=== PATIENT | female | born 1960 | race Caucasian/White ===

== ENCOUNTER 2021-03-10 21:01 | Inpatient (IN) | payer OTHER ==
--- OUTSIDE RECORDS SUMMARY | 2021-03-10 21:05 | XMS REPORT | Continuity of Care Document ---
:1960 Author Organization [facility] t Address [address] [place] [address] Care Team Providers Name Role Phone Maame Franklin Attending Clinician Doctor Unassigned, [place] Attending Clinician Unavailable Pancho ROJAS Attending Clinician Clinic, Pcp Assessment Attending Clinician Unavailable Problems Condition Condition Condition Status Onset Resolution Last Treating Co mments Source Name Details Category Date Date Treatment Clinician Date Seasonal Seasonal Problem [facility] Polyarthra Polyarthra Diagnosis Active [facility] lgia [facility]gia [facility] Acquired Acquired Diagnosis Active [facility] hypothyroi hypothyroi [facility] - dism dism [facility] Hyperlipid Hyperlipid Problem Active [facility] emia, emia, [facility] - unspecifie unspecifie Me moria d d l hyperlipid hyperlipid Ou tpati emia type emia type ent Clinics Obesity Obesity Problem Active [facility] (BMI (BMI [facility] - 30-39.9) 30-39.9) [facility] Essential Essential Diagnosis Active [facility] hypertensi hypertensi Caryl kes - on on [facility] Insomnia, Insomnia, Problem Active [facility] unspecifie unspecifie Caryl kes - d type d type [facility] Migraine Migraine Problem Active [facility] without without [facility] - status status [facility] migrainosu migrainosu l s, not s, not Outpati intractabl intractabl en t e, e, Clinics unspecifie unspecifie d migraine d migraine type type GERD GERD Problem Active [facility] (gastroeso (gastroeso Caryl kes - phageal phageal Memoria reflux reflux l disease) disease) Outpat i ent Clinics Depression Depression Diagnosis Active [facility] , , [facility] - unspecifie unspecifie Me moria d d l depression depression Ou tpati type type ent Clinics Thyroid Thyroid Problem Active [facility] disease disease [facility] Allergies, Adverse Reactions, Alerts Allergy Allergy Status Severity Reaction(s) Onset Inactive Treating Comm ents Source Name Type Date Date Clinician Vicodin Adverse Active vomiting [facility] Reaction [facility] Medications Ordered Filled Start Stop Current Ordering Indication Dosage Frequency Signature Comments Components Source Medication Medication Date Date Medication? Clinician (SIG) Name Name Levothyroxi Levothyroxi Yes Crissy [address] [facility] ne Sodium ne Sodium Millender in the Lu - morning on Memoria an empty l stomach Outpati ent Clinics Cymbalta Cymbalta Yes Crissy [address] Millender [facility] Lisinopril- Lisinopril- Yes Crissy [address] [facility] Hydrochloro Hydrochloro Millender [facility] - thiazide thiazide [facility] Maxalt Maxalt Yes Crissy as [facility] Millender directed [facility] Trazodone Trazodone Yes Crissy [address] [facility] HCl HCl Millender at bedtime Luke s - as needed [facility] for sleep l [facility] Procedures This patient has no known procedures. Encounters Start End Encounter Admission Attending Care Care Encounter Source Date/Time Date/Time Type Type Clinicians Facility Department ID 2020-03-06 2020-03-06 Outpatient Keena Brinkt [id number] [facility] 10:20:00 10:20:00 [facility] 2020-02-26 2020-02-26 Patient Stubbers, [facility] [id number] 00:00:00 00:00:00 Secure Msg Maame PRIMARY [id number] CARE [id number] PAVILLION [id number] 2020-02-26 2020-02-26 Refill Doctor [facility] [id number] 00:00:00 00:00:00 Unassigned, PRIMARY [id number] [place] CARE [id number] PAVILLION [id number] 2020-01-24 2020-01-24 Refill Doctor [facility] [id number] 00:00:00 00:00:00 Unassigned, PRIMARY [id number] [place] CARE [id number] PAVILLION [id number] 2019-12-05 2019-12-05 Telephone Deleon, [facility] [id number] 00:00:00 00:00:00 Caden PRIMARY [id number] CARE [id number] PAVILLION [id number] 2019-12-01 2019-12-01 Urgent Clinic, [facility] [id number] 12:52:36 13:07:36 Care Pcp PRIMARY [id number] Assessment CARE [id number] PAVILLION [id number] Results This patient has no known results.
[2021-03-10 22:12] LABS: Absolute Lymphocytes (CBC) 5.1 K/uL (0.7-4.9); Basophils % 0.4 % (0-1.3); Hematocrit 36.4 % (36.0-45.0); Lymphocytes % 46.8 % (15.3-44.8); MPV 7.6 fL (7.6-11.3); RBC Red Blood Cell Count 4.26 M/uL (3.86-4.86)
[2021-03-10 22:13] LABS: Protime INR 1.04
[2021-03-10 22:22] LABS: ALT/SGPT 22 U/L (12-78); AST/SGOT 12 U/L (15-37); Albumin 3.7 g/dL (3.4-5.0); Alkaline Phosphatase 101 U/L (45-117); BUN Blood Urea Nitrogen 18 mg/dL (7-18); Bicarbonate 28 mmol/L (21-32); Bilirubin Direct < 0.1 mg/dL (0-0.2); Bilirubin Total 0.2 mg/dL (0.2-1.0); Glucose Level 88 mg/dL (74-106); Magnesium 2.1 mg/dL (1.8-2.4); NT PRO-BNP 79 pg/mL (<125); Potassium 3.8 mmol/L (3.5-5.1); Protein, Total 7.5 g/dL (6.4-8.2); Sodium Level 139 mmol/L (136-145); Troponin (Emerg Dept Use Only) < 0.02 ng/mL (0.0-0.045)
--- NOTE | 2021-03-11 00:01 | ER ---
Nurse's Notes [facility] Name: Maddie Garcia Age: 60 yrs Sex: Female : 1960 Arrival Date: 03/10/2021 Time: 21:07 Bed 18 Private MD: Diagnosis: Chest pain Presentation: 03/10 21:10 Chief complaint: Patient states: I starting having chest tighness, SOB, left arm pain jb4 and numbness with left back pain earlier today. I tried to wait it out but it would not go away so I came here. I was worried I could be having a heart attack. 21:10 Coronavirus screen: Client denies travel out of the [place] in the last 14 days. At this jb4 time, the client does not indicate any symptoms associated with coronavirus-19. Ebola Screen: No symptoms or risks identified at this time. Initial Sepsis Screen: Does the patient meet any 2 criteria? No. Patient's initial sepsis screen is negative. Does the patient have a suspected source of infection? No. Patient's initial sepsis screen is negative. Risk Assessment: Do you want to hurt yourself or someone else? Patient reports no desire to harm self or others. Onset of symptoms was March 10, 2021. Transition of care: patient was not received from another setting of care. 21:10 Method Of Arrival: Ambulatory jb4 21:10 Acuity: POLO 3 jb4 Historical: - Allergies: 21:53 No Known Allergies; jb4 - Home Meds: 21:53 Synthroid Oral [Active]; Hydrochlorothiazide Oral [Active]; Lisinopril Oral [Active]; jb4 Cymbalta oral oral [Active]; topiramate (bulk) miscellaneous [Active]; - PMHx: 21:53 Hypertension; Hypothyroidism; Rheumatoid Arthritis; jb4 - PSHx: 21:53 wrist; Tonsillectomy; Lumpectomy; jb4 - Immunization history:: Adult Immunizations up to date. - Social history:: Smoking status: Patient/guardian denies using tobacco. Screenin:50 Abuse screen: Denies threats or abuse. Nutritional screening: No deficits noted. jb4 Tuberculosis screening: No symptoms or risk factors identified. Fall Risk None identified. Assessment: 21:10 General: Appears in no apparent distress. uncomfortable, Behavior is calm, cooperative, jb4 appropriate for age. Pain: Complains of pain in chest Pain radiates to left scapular area and left arm Pain currently is 5 out of 10 on a pain scale. Quality of pain is described as pressure, Pain began gradually. Neuro: Level of Consciousness is awake, alert, obeys commands, Oriented to person, place, time, situation. Cardiovascular: Reports chest pain, shortness of breath, Patient's skin is warm and dry. Respiratory: Airway is patent Respiratory effort is even, unlabored, Respiratory pattern is regular, symmetrical. GI: No signs and/or symptoms were reported involving the gastrointestinal system. : No signs and/or symptoms were reported regarding the genitourinary system. EENT: No signs and/or symptoms were reported regarding the EENT system. Derm: Skin is intact, Skin is pink, warm \T\ dry. Musculoskeletal: Circulation, motion, and sensation intact. Range of motion: intact in all extremities. 22:00 Reassessment: Patient appears in no apparent distress at this time. Patient and/or jb4 family updated on plan of care and expected duration. Pain level reassessed. Patient is alert, oriented x 3, equal unlabored respirations, skin warm/dry/pink. 23:00 Reassessment: Patient appears in no apparent distress at this time. Patient and/or jb4 family updated on plan of care and expected duration. Pain level reassessed. Patient is alert, oriented x 3, equal unlabored respirations, skin warm/dry/pink. 23:30 Reassessment: Pt reports worsening chest pain and requesting pain medication, provider jb4 notified, no new orders received. 03/11 00:29 Reassessment: Patient appears in no apparent distress at this time. Patient and/or jb4 family updated on plan of care and expected duration. Pain level reassessed. Patient is alert, oriented x 3, equal unlabored respirations, skin warm/dry/pink. Vital Signs: 03/10 21:10 BP 112 / 69; Pulse 75; Resp 16; Temp 98.2(TE); Pulse Ox 100% on R/A; Weight 88.45 kg; jb4 Height 5 ft. 10 in. (177.80 cm) (R); Pain 5/10; 22:00 BP 91 / 69; Pulse 70; Resp 16; Pulse Ox 100% on R/A; jb4 23:00 BP 118 / 73; Pulse 67; Resp 18; Pulse Ox 96% on R/A; jb4 03/11 00:30 BP 113 / 84; Pulse 82; Resp 16; Pulse Ox 97% on R/A; jb4 03/10 21:10 Body Mass Index 27.98 (88.45 kg, 177.80 cm) jb4 ED Course: 03/10 21:07 Patient arrived in ED. cf2 21:10 Patient has correct armband on for positive identification. Placed in gown. Bed in low jb4 position. Call light in reach. Side rails up X 1. Pulse ox on. NIBP on. 21:10 Patient maintains SpO2 saturation greater than 95% on room air. jb4 21:41 El Wooten, RN is Primary Nurse. jb4 21:50 Triage completed. jb4 21:50 Initial lab(s) drawn, by mt, sent to lab. Inserted saline lock: 18 gauge in right jb4 antecubital area, using aseptic technique. Blood collected. 21:53 Arm band placed on right wrist. jb4 22:09 Amanuel Kohli MD is Attending Physician. pkl 22:50 XRAY Chest (1 view) In Process Unspecified. EDIN 03/11 00:01 Lio Bernstein is Hospitalizing Provider. pkl 00:29 No provider procedures requiring assistance completed. Patient admitted, IV remains in jb4 place. Administered Medications: 00:12 Drug: Zofran (Ondansetron) 4 mg Route: IVP; Site: right antecubital; jb4 00:14 Drug: morphine 4 mg Route: IVP; Site: right antecubital; jb4 Outcome: 00:01 Decision to Hospitalize by Provider. pkl 00:29 Admitted to Med/surg accompanied by nurse, via stretcher, room 206, with chart, Report jb4 called to MANNY Zabala 00:31 Condition: stable jb4 00:31 Discharge instructions given to patient, Instructed on the need for admit, Demonstrated understanding of instructions. 00:42 Patient left the ED. jb4 Signatures: Dispatcher [facility] Amanuel Kohli MD MD pkl El Wooten RN RN jb4 Mirtha Deleon cf2
--- NOTE | 2021-03-11 00:02 | EDPHYS ---
Physician Documentation [facility] Name: Maddie Garcia Age: 60 yrs Sex: Female : 1960 Arrival Date: 03/10/2021 Time: 21:07 Bed 18 Private MD: ED Physician Amanuel Kohli HPI: 03/10 22:19 This 60 yrs old Female presents to ER via Ambulatory with complaints of Chest pkl Pain, Nausea, Shortness Of Breath, TOP LEFT BACK PAIN, Arm Pain. 22:19 The patient or guardian reports chest pain that is located primarily in the substernal pkl area. Onset: today, and became persistent. The pain radiates to the left arm, left neck, left jaw, left back. Associated signs and symptoms: Pertinent positives: shortness of breath. The chest pain is described as tightness. Historical: - Allergies: 21:53 No Known Allergies; jb4 - Home Meds: 21:53 Synthroid Oral [Active]; Hydrochlorothiazide Oral [Active]; Lisinopril Oral [Active]; jb4 Cymbalta oral oral [Active]; topiramate (bulk) miscellaneous [Active]; - PMHx: 21:53 Hypertension; Hypothyroidism; Rheumatoid Arthritis; jb4 - PSHx: 21:53 wrist; Tonsillectomy; Lumpectomy; jb4 - Immunization history:: Adult Immunizations up to date. - Social history:: Smoking status: Patient/guardian denies using tobacco. ROS: 22:19 Eyes: Negative for injury, pain, redness, and discharge, ENT: Negative for injury, pkl pain, and discharge, Neck: Negative for injury, pain, and swelling. 22:19 Cardiovascular: Positive for chest pain, of the substernal. 22:19 Respiratory: Positive for cough, with no reported sputum, shortness of breath, at rest. 22:19 Abdomen/GI: Negative for abdominal pain, nausea, vomiting, and diarrhea. 22:19 Back: Negative for acute changes. 22:19 : Negative for urinary symptoms. 22:19 MS/extremity: Negative for acute changes. 22:19 Skin: Negative for rash. 22:19 Neuro: Negative for altered mental status, loss of consciousness. Exam: 22:19 Head/Face: Normocephalic, atraumatic. Eyes: Pupils equal round and reactive to light, pkl extra-ocular motions intact. Lids and lashes normal. Conjunctiva and sclera are non-icteric and not injected. Cornea within normal limits. Periorbital areas with no swelling, redness, or edema. ENT: Nares patent. No nasal discharge, no septal abnormalities noted. Tympanic membranes are normal and external auditory canals are clear. Oropharynx with no redness, swelling, or masses, exudates, or evidence of obstruction, uvula midline. Mucous membranes moist. Neck: Trachea midline, no thyromegaly or masses palpated, and no cervical lymphadenopathy. Supple, full range of motion without nuchal rigidity, or vertebral point tenderness. No Meningismus. Chest/axilla: Normal chest wall appearance and motion. Nontender with no deformity. No lesions are appreciated. Cardiovascular: Regular rate and rhythm with a normal S1 and S2. No gallops, murmurs, or rubs. Normal PMI, no JVD. No pulse deficits. 22:19 Abdomen/GI: Bowel sounds: normal, Palpation: abdomen is soft and non-tender, in all quadrants. 22:19 Back: Exam negative for acute changes. 22:19 : Exam negative for acute changes. 22:19 Musculoskeletal/extremity: Exam is negative for acute changes. 22:19 Skin: Exam negative for rash. 22:19 Neuro: Orientation: is normal, Mentation: is normal, Cranial nerves: grossly normal, Motor: is normal. 22:34 Respiratory: the patient does not display signs of respiratory distress, Respirations: pkl normal, Breath sounds: are clear throughout. Vital Signs: 21:10 BP 112 / 69; Pulse 75; Resp 16; Temp 98.2(TE); Pulse Ox 100% on R/A; Weight 88.45 kg; jb4 Height 5 ft. 10 in. (177.80 cm) (R); Pain 5/10; 22:00 BP 91 / 69; Pulse 70; Resp 16; Pulse Ox 100% on R/A; jb4 23:00 BP 118 / 73; Pulse 67; Resp 18; Pulse Ox 96% on R/A; jb4 03/11 00:30 BP 113 / 84; Pulse 82; Resp 16; Pulse Ox 97% on R/A; jb4 03/10 21:10 Body Mass Index 27.98 (88.45 kg, 177.80 cm) [facility] MDM: 03/10 22:09 Patient medically screened. pkl 23:59 Data reviewed: vital signs, nurses notes, lab test result(s), EKG, radiologic studies, pkl plain films. ED course: Talked to Kapil MCCLURE ) For observation Dr. Bernstein. 03/10 21:47 Order name: Basic Metabolic Panel; Complete Time: 22:33 [facility] 03/10 21:47 Order name: CBC with Diff; Complete Time: 22:17 [facility] 03/10 21:47 Order name: LFT's; Complete Time: 22:33 [facility] 03/10 21:47 Order name: Magnesium; Complete Time: 22:33 [facility] 03/10 21:47 Order name: NT PRO-BNP; Complete Time: 22:33 [facility] 03/10 21:47 Order name: PT-INR; Complete Time: 23:36 [facility] 03/10 21:47 Order name: Troponin (emerg Dept Use Only); Complete Time: 22:33 [facility] 03/10 21:47 Order name: XRAY Chest (1 view) [facility] 03/10 21:47 Order name: EKG; Complete Time: 21:48 [facility] 03/10 22:18 Order name: D-Dimer l 03/10 22:21 Order name: D-Dimer; Complete Time: 23:36 [facility] 03/10 21:47 Order name: Cardiac monitoring; Complete Time: 21:47 [facility] 03/10 21:47 Order name: EKG - Nurse/Tech; Complete Time: 21:47 [facility] 03/10 21:47 Order name: IV Saline Lock; Complete Time: 21:47 [facility] 03/10 21:47 Order name: Labs collected and sent; Complete Time: 21:47 [facility] 03/10 21:47 Order name: O2 Per Protocol; Complete Time: 21:47 [facility] 03/10 21:47 Order name: O2 Sat Monitoring; Complete Time: 21:47 [facility] 03/10 23:58 Order name: CONS Physician Consult EDMS Administered Medications: 03/11 00:12 Drug: Zofran (Ondansetron) 4 mg Route: IVP; Site: right antecubital; jb4 00:14 Drug: morphine 4 mg Route: IVP; Site: right antecubital; jb4 Disposition: 03/11/21 00:01 Hospitalization ordered by Lio Bernstein for Observation. Diagnosis is Chest pain. - Bed requested for Telemetry/MedSurg (observation). - Status is Observation. jb4 - Condition is Stable. - Problem is new. - Symptoms are unchanged. Signatures: Dispatcher [employer] EDRI Amanuel Kohli MD MD pkl Manjinder Mendez RN RN El Wooten RN RN jb4 Corrections: (The following items were deleted from the chart) 03/10 22:21 22:19 D-Dimer ordered. [facility] EDMS 22:34 22:19 Respiratory: mild respiratory distress is noted, Respirations: labored breathing, pkl that is mild, Breath sounds: rales, that are mild, are scattered, pkl 03/11 00:17 00:01 Hospitalization Ordered by Lio Bernstein for Observation. Preliminary diagnosis em is Chest pain. Bed requested for Telemetry/MedSurg (observation). Status is Observation. Condition is Stable. Problem is new. Symptoms are unchanged. pkl 00:42 00:17 03/11/2021 00:01 Hospitalization Ordered by Lio Bernstein for Observation. jb4 Preliminary diagnosis is Chest pain. Bed requested for Telemetry/MedSurg (observation). Status is Observation. Condition is Stable. Problem is new. Symptoms are unchanged. em
[2021-03-11] MEDS ORDERED: ONDANSETRON 4 MG/2 ML VIAL ONE (00:29)
[2021-03-11] MEDS ORDERED: MORPHINE 4 MG/ML SYR ONE (00:29)
[2021-03-11] MEDS ORDERED: NITROGLYCERIN 0.4 MG/TAB SL PRN (00:53)
[2021-03-11] MEDS ORDERED: ONDANSETRON 4 MG/2 ML VIAL IV PRN (00:53)
[2021-03-11] MEDS ORDERED: MORPHINE 2 MG/ML SYR IV PRN (00:53)
[2021-03-11] MEDS ORDERED: TRAZODONE 50 MG TABLET PO PRN (00:53)
[2021-03-11] MEDS ORDERED: ACETAMINOPHEN 500 MG TAB PO PRN (00:53)
[2021-03-11 01:30] VITALS: BMI 28.3
[2021-03-11] MEDS: TOPIRAMATE 25 MG TAB PO SCH ×3 (02:18→20:03)
--- NOTE | 2021-03-11 04:11 | P.HP ---
Certification for Inpatient Patient admitted to: Observation With expected LOS: <2 Midnights Patient will require the following post-hospital care: None Practitioner: I am a practitioner with admitting privileges, knowledge of patient current condition, hospital course, and medical plan of care. Services: Services provided to patient in accordance with Admission requirements found in Title 42 Section 412.3 of the Code of Federal Regulations Patient History Date of Service: 03/10/21 Reason for admission: chest pain History of Present Illness: Ms. Garcia is a 60 yo F with HTN, hypothyroidism here today for 7/10 constant chest pain radiating to the back and with numbness in the left arm beginning this afternoon. It started while she was working on her computer. This is the first time she has had this chest pain. She says pain is worse with exertion, and relieved with laying down or pressing on her chest. She reports dizziness and nausea. Denies vomiting and vision changes. She started walking 4 miles daily last year, and has lost 30lbs. The Past 4 days, she has been too weak and SOB to even walk a few blocks. She quit smoking 6 mo ago. She has been sober for 8 mo. Allergies acetaminophen [From Vicodin] Allergy (Verified 03/11/21 01:05) Nausea/Vomiting hydrocodone [From Vicodin] Allergy (Verified 03/11/21 01:05) Nausea/Vomiting Home Medications: Duloxetine HCl [Cymbalta] 120 mg PO DAILY 03/11/21 Levothyroxine Sodium [Synthroid] 1 tab PO DAILY 03/11/21 Lisinopril/Hydrochlorothiazide [Lisinopril-Hctz 20-12.5 mg Tab] 1 tab PO DAILY 03/11/21 Topiramate 1 tab PO BID 03/11/21 Trazodone [Desyrel*] 1 tab PO BEDTIME 03/11/21 - Past Medical/Surgical History Has patient received pneumonia vaccine in the past: No Diabetic: No -: HTN -: hypothyroidism -: RA -: lumpectomy left -: TONSILLECTOMY -: right surg wrist giant cell tumor Psychosocial/ Personal History: son recently diagnosed with cancer and autoimmune disease, daughter diagnosed with CMT, , 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, quit smoking 6 mo ago - Family History Father -: Heart disease, Cancer Mother -: Cancer - Social History Smoking Status: Former smoker Alcohol use: No CD- Drugs: No Caffeine use: Yes Place of Residence: Home Review of Systems 10-point ROS is otherwise unremarkable Cardiovascular: Chest Pain Gastrointestinal: Nausea Physical Examination - Vital Signs Temperature: 98.2 F Blood Pressure: 113/84 Pulse: 82 Respirations: 16 - Physical Exam General: Alert, In no apparent distress HEENT: Atraumatic Neck: Supple, 2+ carotid pulse no bruit, No LAD, Without JVD or thyroid abnormality Respiratory: Clear to auscultation bilaterally, Normal air movement Cardiovascular: Regular rate/rhythm, Normal S1 S2 Gastrointestinal: Normal bowel sounds, No tenderness Musculoskeletal: No tenderness Integumentary: No rashes Neurological: Normal gait, Normal speech, Normal strength at 5/5 x4 extr, Normal tone, Normal affect Lymphatics: No axilla or inguinal lymphadenopathy - Studies Laboratory Data (last 24 hrs) 03/10/21 21:45: PT 12.0, INR 1.04 03/10/21 21:45: WBC 10.80, Hgb 12.8, Hct 36.4, Plt Count 341 03/10/21 21:45: Sodium 139, Potassium 3.8, BUN 18, Creatinine 0.75, Glucose 88, Magnesium 2.1, Total Bilirubin 0.2, AST 12 L, ALT 22, Alkaline Phosphatase 101 Assessment and Plan - Problems (Diagnosis) (1) HTN (hypertension) Current Visit: Yes Status: Chronic Qualifiers: Hypertension type: essential hypertension Qualified Code(s): I10 - Essential (primary) hypertension (2) Hypothyroidism Current Visit: Yes Status: Chronic Qualifiers: Hypothyroidism type: unspecified Qualified Code(s): E03.9 - Hypothyroidism, unspecified (3) Chest pain Current Visit: Yes Status: Acute Qualifiers: Chest pain type: unspecified Qualified Code(s): R07.9 - Chest pain, unspecified - Plan cardiology consulted daily ASA and statin lipid panel and thyroid panel pending morphine and NTG PRN trend troponins and EKG will reconcile and continue other home medications BP stable, continue to monitor DVT ppx Discharge Plan: Home Plan to discharge in: 24 Hours - Advance Directives Does patient have a Living Will: No Does patient have a Durable POA for Healthcare: No - Code Status/Comfort Care Code Status Assessed: Yes (full code ) Critical Care: No Time Spent Managing Pts Care (In Minutes): 70
[2021-03-11 04:13] LABS: Urine Appearance CLEAR (Clear); Urine Bilirubin NEGATIVE (Negative); Urine Blood NEGATIVE (Negative); Urine Color YELLOW (Yellow); Urine Glucose NEGATIVE (Negative); Urine Protein NEGATIVE (Negative); Urine Urobilinogen 0.2 mg/dL (0.2-1.0)
[2021-03-11 04:23] LABS: Urine Microscopic Reflex NO UMIC
[2021-03-11 06:22] LABS: Absolute Lymphocytes (CBC) 3.9 K/uL (0.7-4.9); Basophils % 0.7 % (0-1.3); Hematocrit 34.8 % (36.0-45.0); Lymphocytes % 48.5 % (15.3-44.8); MPV 7.4 fL (7.6-11.3); RBC Red Blood Cell Count 4.04 M/uL (3.86-4.86)
[2021-03-11] MEDS: LEVOTHYROXINE SOD 0.1 MG TAB PO SCH (06:26)
[2021-03-11] MEDS: LEVOTHYROXINE SOD 0.075 MG TAB PO SCH (06:27)
[2021-03-11 06:38] LABS: ALT/SGPT 20 U/L (12-78); AST/SGOT 11 U/L (15-37); Albumin 3.1 g/dL (3.4-5.0); Alkaline Phosphatase 87 U/L (45-117); BUN Blood Urea Nitrogen 16 mg/dL (7-18); Bicarbonate 28 mmol/L (21-32); Bilirubin Total 0.3 mg/dL (0.2-1.0); Glucose Level 87 mg/dL (74-106); Magnesium 2.3 mg/dL (1.8-2.4); Phosphorus 4.6 mg/dL (2.5-4.9); Protein, Total 6.5 g/dL (6.4-8.2); Sodium Level 143 mmol/L (136-145)
--- NOTE | 2021-03-11 06:58 | RAD REPORT ---
EXAM DESCRIPTION: RAD - Chest Single View - 03/10/2021 10:50 pm CLINICAL HISTORY: CHEST PAIN COMPARISON: None TECHNIQUE: AP portable chest image was obtained 03/10/2021 10:50 pm . FINDINGS: Lungs are clear. Heart and vasculature are normal. No measurable pleural effusion and no p neumothorax. No acute bony abnormality seen. No acute aortic findings suspected. IMPRESSION: No acute cardiopulmonary process.
[2021-03-11] MEDS: DULOXETINE 30 MG CAP PO SCH (08:05)
[2021-03-11] MEDS: ASPIRIN EC 81 MG TAB PO SCH (08:05)
[2021-03-11] MEDS: ENOXAPARIN 40 MG/0.4 ML SQ SCH (08:06)
[2021-03-11] MEDS ORDERED: hydroCHLOROthiazide 12.5 MG CAP PO SCH (09:00)
[2021-03-11] MEDS ORDERED: lisinopriL 20 MG TAB PO SCH (09:00)
[2021-03-11] MEDS ORDERED: HOME MED 1 EA UNK (Lisinopril/Hydrochlorothiazide [Lisinopril-Hctz 20-12.5 Mg Tab] Tablet) PO SCH (09:00)
[2021-03-11] MEDS ORDERED: HOME MED 1 EA UNK (Levothyroxine Sodium [Synthroid] 175 MCG Tablet) PO SCH (09:00)
--- NOTE | 2021-03-11 12:56 | EKG ---
Test Date: 2021-03-10 Test Time: 21:31:21 Extended Day Teacher: ARNAV MEASUREMENT RESULTS: Intervals: Rate: 79 NC: 174 QRSD: 94 QT: 370 QTc: 424 [place]: P: 36 NC: 174 QRS: -13 T: 24 INTERPRETIVE STATEMENTS: Normal sinus rhythm Minimal voltage criteria for LVH, may be normal variant Possible Anterior infarct, age undetermined Abnormal ECG No previous ECG available for comparison Electronically Signed On 03-11-21 12:53:50 CDT by Reg Tamayo
[2021-03-11] MEDS ORDERED: IBUPROFEN 400 MG TAB PO ONE (15:11)
--- NOTE | 2021-03-11 15:50 | P.PN ---
Subjective Date of Service: 03/11/21 Chief Complaint: chest pain Patient complaining of headache. She also states her left-sided chest pain is intermittent describes it as chest tightness. Physical Examination - Vital Signs Temperature: 97.0 F Blood Pressure: 98/61 Pulse: 59 Respirations: 16 Pulse Ox (%): 97 - Physical Exam General: Alert, In no apparent distress, Oriented x3 HEENT: Mucous membr. moist/pink Neck: Supple, JVD not distended Respiratory: Clear to auscultation bilaterally, Normal air movement Cardiovascular: No edema, Regular rate/rhythm, Normal S1 S2 Gastrointestinal: Normal bowel sounds, Soft and benign, Non-distended, No tenderness Musculoskeletal: No swelling Integumentary: No rashes Neurological: Normal strength at 5/5 x4 extr - Studies Laboratory Data (last 24 hrs) 03/10/21 21:45: PT 12.0, INR 1.04 03/10/21 21:45: WBC 10.80, Hgb 12.8, Hct 36.4, Plt Count 341 03/10/21 21:45: Sodium 139, Potassium 3.8, BUN 18, Creatinine 0.75, Glucose 88, Magnesium 2.1, Total Bilirubin 0.2, AST 12 L, ALT 22, Alkaline Phosphatase 101 Assessment And Plan - Current Problems (Diagnosis) (1) Rheumatoid arthritis Current Visit: Yes Status: Acute (2) Chest pain Current Visit: Yes Status: Acute Qualifiers: Chest pain type: unspecified Qualified Code(s): R07.9 - Chest pain, unspecified (3) HTN (hypertension) Current Visit: Yes Status: Chronic Qualifiers: Hypertension type: essential hypertension Qualified Code(s): I10 - Essential (primary) hypertension (4) Hypothyroidism Current Visit: Yes Status: Chronic Qualifiers: Hypothyroidism type: unspecified Qualified Code(s): E03.9 - Hypothyroidism, unspecified - Plan Case discussed with Dr. Tamayo. Troponin trended negative. Dr. Tamayo recommend stress test and echocardiogram which are ordered. Continue aspirin. Check lipid profile. Patient blood pressure is soft. Hold antihypertensives. Continue other home medications.
[2021-03-11] MEDS: ATORVASTATIN 40 MG TAB PO SCH (20:04)
[2021-03-11] MEDS: ENSURE HIGH PROTEIN 237 ML CAN PO SCH (20:11)
[2021-03-11] MEDS: TRAZODONE 50 MG TABLET PO PRN (21:01)
[2021-03-12] MEDS ORDERED: IBUPROFEN 400 MG TAB PO ONE (01:21)
[2021-03-12 06:07] LABS: Thyroid Stimulating Hormone 0.008 uIU/mL (0.360-3.740)
[2021-03-12] MEDS: LEVOTHYROXINE SOD 0.075 MG TAB PO SCH (06:51)
[2021-03-12] MEDS: LEVOTHYROXINE SOD 0.1 MG TAB PO SCH (06:51)
[2021-03-12] MEDS ORDERED: REGADENOSON 0.4 MG/5 ML SYR IV ONE (08:38)
[2021-03-12] MEDS: ENOXAPARIN 40 MG/0.4 ML SQ SCH (09:00)
[2021-03-12] MEDS: DULOXETINE 30 MG CAP PO SCH ×2 (09:00→12:54)
[2021-03-12] MEDS: ASPIRIN EC 81 MG TAB PO SCH ×2 (09:00→12:54)
[2021-03-12] MEDS: ENSURE HIGH PROTEIN 237 ML CAN PO SCH ×2 (09:00→20:24)
[2021-03-12] MEDS: TOPIRAMATE 25 MG TAB PO SCH ×3 (09:00→20:21)
--- NOTE | 2021-03-12 11:17 | P.DS ---
Admission Date: 03/13/21 Discharge Date: 03/13/21 Discharge Condition: FAIR Reason for Admission: chest pain - Problems (1) Rheumatoid arthritis Current Visit: Yes Status: Acute (2) Chest pain Current Visit: Yes Status: Acute Qualifiers: Chest pain type: unspecified Qualified Code(s): R07.9 - Chest pain, unspecified (3) HTN (hypertension) Current Visit: Yes Status: Chronic Qualifiers: Hypertension type: essential hypertension (4) Hypothyroidism Current Visit: Yes Status: Chronic Qualifiers: Hypothyroidism type: unspecified Qualified Code(s): E03.9 - Hypothyroidism, unspecified (5) Iatrogenic hyperthyroidism Current Visit: Yes Status: Acute Brief History of Present Illness: 60-year-old woman with a history of hypothyroidism on Synthroid, history of rheumatoid arthritis presented to the emergency department with a complaint of left anterior chest pain, described as discomfort and chest tightness, associated numbness in the left upper extremity. Her troponin in the emergency department was negative. EKG unremarkable. Patient was placed under observation for ACS rule out. Hospital Course: Troponin trended negative. Patient seen and evaluated by cardiology due to typical chest pain. Nuclear stress test and echocardiogram were performed by Dr. Tamayo 's recommendation. Stress test done showed reversible inferior wall ischemia. Echocardiogram unremarkable with normal EF. Cardiac catheterization was performed by Dr. Tamayo which showed clear coronary arteries. Noted patient has hypertension but her blood pressure was low with systolic as low as in the 80s. Her antihypertensives have been discontinued for now. Her TSH is very low, 0.008 suggesting a hyperthyroid state. Patient is on high dose Synthroid, 175 mcg daily which is discontinued for now. She will need to follow with her PCP to repeat her TSH within a couple of weeks. ACS has been ruled out. Patient deemed clinically stable for discharge. Vital Signs/Physical Exam: Temp Pulse Resp BP Pulse Ox 97.2 F 68 18 100/70 97 03/12/21 08:00 03/12/21 08:00 03/12/21 08:00 03/12/21 10:15 03/12/21 08:00 General: Alert, In no apparent distress, Oriented x3 HEENT: Mucous membr. moist/pink Neck: Supple, JVD not distended Respiratory: Clear to auscultation bilaterally, Normal air movement Cardiovascular: No edema, Regular rate/rhythm, Normal S1 S2 Gastrointestinal: Soft and benign, Non-distended, No tenderness Musculoskeletal: No swelling Integumentary: No rashes, No erythema Neurological: Normal speech, Normal strength at 5/5 x4 extr Laboratory Data at Discharge: WBC 8.00 K/uL (4.3-10.9) D 03/11/21 05:56 Hgb 12.4 g/dL (12.0-15.0) 03/11/21 05:56 Hct 34.8 % (36.0-45.0) L 03/11/21 05:56 Plt Count 295 K/uL (152-406) 03/11/21 05:56 PT 12.0 SECONDS (9.5-12.5) 03/10/21 21:45 INR 1.04 03/10/21 21:45 Sodium 143 mmol/L (136-145) 03/11/21 05:56 Potassium 4.0 mmol/L (3.5-5.1) 03/11/21 05:56 BUN 16 mg/dL (7-18) 03/11/21 05:56 Creatinine 0.66 mg/dL (0.55-1.3) 03/11/21 05:56 Glucose 87 mg/dL (74-106) 03/11/21 05:56 Phosphorus 4.6 mg/dL (2.5-4.9) 03/11/21 05:56 Magnesium 2.3 mg/dL (1.8-2.4) 03/11/21 05:56 Total Bilirubin 0.3 mg/dL (0.2-1.0) 03/11/21 05:56 AST 11 U/L (15-37) L 03/11/21 05:56 ALT 20 U/L (12-78) 03/11/21 05:56 Alkaline Phosphatase 87 U/L (45-117) 03/11/21 05:56 Troponin I < 0.02 ng/mL (0.0-0.045) 03/11/21 05:56 Triglycerides 208 mg/dL (<150) H 03/12/21 05:26 Cholesterol 227 mg/dL (<200) H 03/12/21 05:26 HDL Cholesterol 44 mg/dL (40-60) 03/12/21 05:26 Cholesterol/HDL Ratio 5.16 03/12/21 05:26 Home Medications: Duloxetine HCl [Cymbalta] 120 mg PO DAILY 03/11/21 Topiramate 1 tab PO BID 03/11/21 Trazodone [Desyrel*] 1 tab PO BEDTIME 03/11/21 Aspirin [Aspirin EC] 81 mg PO DAILY #30 tablet. 03/12/21 Atorvastatin Calcium [Lipitor] 40 mg PO BEDTIME #30 tab 03/12/21 New Medications: Aspirin [Aspirin EC] 81 mg PO DAILY #30 tablet. Atorvastatin Calcium [Lipitor] 40 mg PO BEDTIME #30 tab Diet: AHA Activity: Ad nahed Followup: Marc Walsh NP [Primary Care Provider] - 1 Week Time spent managing pt's care (in minutes): 33
--- NOTE | 2021-03-12 12:53 | RAD REPORT ---
EXAM DESCRIPTION: NM - Rest Stress Cardiac Imaging - 03/12/2021 12:34 pm CLINICAL HISTORY: Chest pain COMPARISON: None. TECHNIQUE: The patient was administered 10.6 mCi of Tc 99m Sestamibi prior to resting SPECT imaging of the heart. The patient was then administered 29.7 mCi of Tc 99m Sestamibi following exercise or ph armacologic stress. Multiplanar SPECT images were reviewed. FINDINGS: The end diastolic volume is 83 ml, the end systolic volume is 29 ml, and the ejection frac tion is 65 %. The inferolateral left ventricular wall in the mid in apex portion shows diminished activity on stres s imaging that does not occur on the rest sequencing. This is believed to be stress ischemia rather t beaulieu artifact. No other area of stress ischemia seen and no scarring identified. IMPRESSION: Inferolateral wall stress ischemia. Ventricular volumes and ejection fraction are normal range.
--- NOTE | 2021-03-12 14:22 | P.PN ---
Subjective Date of Service: 03/12/21 Chief Complaint: chest pain No new complaint today. Blood pressure running low. Physical Examination - Vital Signs Temperature: 97.2 F Blood Pressure: 95/56 Pulse: 68 Respirations: 18 Pulse Ox (%): 97 - Physical Exam General: Alert, In no apparent distress, Oriented x3 HEENT: Mucous membr. moist/pink Neck: JVD not distended Respiratory: Clear to auscultation bilaterally, Normal air movement Cardiovascular: No edema, Regular rate/rhythm, Normal S1 S2 Gastrointestinal: Soft and benign, Non-distended, No tenderness Musculoskeletal: No erythema Integumentary: No rashes Neurological: Normal strength at 5/5 x4 extr Assessment And Plan - Current Problems (Diagnosis) (1) Rheumatoid arthritis Current Visit: Yes Status: Acute (2) Chest pain Current Visit: Yes Status: Acute Qualifiers: Chest pain type: unspecified Qualified Code(s): R07.9 - Chest pain, unspecified (3) HTN (hypertension) Current Visit: Yes Status: Chronic Qualifiers: Hypertension type: essential hypertension Qualified Code(s): I10 - Essential (primary) hypertension (4) Hypothyroidism Current Visit: Yes Status: Chronic Qualifiers: Hypothyroidism type: unspecified Qualified Code(s): E03.9 - Hypothyroidism, unspecified (5) Iatrogenic hyperthyroidism Current Visit: Yes Status: Acute (6) Coronary artery disease Current Visit: Yes Status: Acute - Plan Case discussed with Dr. Tamayo. Troponin trended negative. Dr. Tamayo recommend stress test and echocardiogram which are ordered. Stress test reporting inferior wall stress-induced ischemia Continue aspirin. Check lipid profile. Patient blood pressure is soft. Continue to hold antihypertensives. Dr. Tamayo to follow. Discontinue thyroid replacement therapy. Follow up with PCP within 2 weeks to recheck TSH.
[2021-03-12] MEDS: TRAZODONE 50 MG TABLET PO PRN (20:22)
[2021-03-12] MEDS: ATORVASTATIN 40 MG TAB PO SCH (20:22)
[2021-03-13 05:51] LABS: Absolute Lymphocytes (CBC) 3.2 K/uL (0.7-4.9); Basophils % 0.6 % (0-1.3); Hematocrit 37.5 % (36.0-45.0); Lymphocytes % 44.3 % (15.3-44.8); MPV 7.6 fL (7.6-11.3); RBC Red Blood Cell Count 4.31 M/uL (3.86-4.86)
[2021-03-13 05:58] LABS: BUN Blood Urea Nitrogen 17 mg/dL (7-18); Bicarbonate 28 mmol/L (21-32); Glucose Level 102 mg/dL (74-106); Potassium 4.1 mmol/L (3.5-5.1); Sodium Level 143 mmol/L (136-145)
[2021-03-13] MEDS ORDERED: HEPA 1000U/500MLS 1,000 UNIT/500 ML BAG IV ONE (07:23)
--- NOTE | 2021-03-13 08:19 | ECHO ---
HEIGHT: 5 ft 10 in WEIGHT: 197 lb 0 oz DATE OF STUDY: 03/12/[address]: jimmie gonzales 2-DIMENSIONAL: YES M.MODE: YES DOPPLER: YES COLOR FLOW: YES TDS: NO PORTABLE: NO DEFINITY: NO BUBBLE STUDY: NO DIAGNOSIS: CHEST PAIN CARDIAC HISTORY: CATHERIZATION: SURGERY: PROSTHETIC VALVE: PACEMAKER: MEASUREMENTS (cm) DIASTOLIC (NORMALS) SYSTOLIC (NORMALS) IVSd 0.9 (0.6-1.2) LA Diam 3.7 (1.9-4.0) LVEF 70% LVIDd 4.4 (3.5-5.7) LVIDs 2.7 (2.0-3.5) %FS 39% LVPWd 1.1 (0.6-1.2) Ao Diam 3.0 (2.0-3.7) 2 DIMENSIONAL ASSESSMENT: RIGHT ATRIUM: NORMAL LEFT ATRIUM: NORMAL RIGHT VENTRICLE: NORMAL LEFT VENTRICLE: NORMAL TRICUSPID VALVE: NORMAL MITRAL VALVE: NORMAL PULMONIC VALVE: NORMAL AORTIC VALVE: NORMAL PERICARDIAL EFFUSION: NONE AORTIC ROOT: NORMAL LEFT VENTRICULAR WALL MOTION: NORMAL DOPPLER/COLOR FLOW: NORMAL COMMENTS: NORMAL 2D ECHOCARDIOGRAM WITH DOPPLER. NO WALL MOTION ABNORMALITY. NO EFFUSION. 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
--- NOTE | 2021-03-13 08:25 | TREADPHA ---
DX: CHEST PAIN Date of Study: 03/12/2021 Ht: 5' 10 " Wt: 197 lb 0 oz Consulting Physician: LORENZA MEDICATIONS: TRAZODONE, CYMBALTA, LIPITOR, ASPIRIN HISTORY: 60 YEAR OLD FEMALE WITH COMPLAINTS OF CHEST PAIN. HISTORY OF HYPERTENSION, HYPOTHYROID. FORMER SMOKER. PHYSICIAL EXAMINATION: RESTING B.P.: 103/53 RESTING H.R.: 68 RESTING EKG: NORMAL PROTOCOL: LEXISCAN EXERCISE TIME: 3:30 B.P. AT PEAK STRESS: 106/58 IMPRESSION: LEXISCAN INJECTED FOLLOWED BY CARDIOLITE PER PROTOCOL. SEE NUCLEAR MEDICINE REPORT. NO SUPRAVENTRICULAR TACHYCARDIA, VENTRICULAR TACHYCARDIA OR PREMATURE ATRIAL COMPLEXES. OCCASIONAL PREMATURE VENTRICULAR COMPLEXES DURING TEST. PATIENT REPORTS NO CHEST PAIN. PATIENT REPORTS SLIGHT CHEST TIGHTNESS WITH SHORTNESS OF BREATH DURING PROCEDURE.
[2021-03-13] MEDS: TOPIRAMATE 25 MG TAB PO SCH ×2 (08:38→14:03)
[2021-03-13] MEDS: ENSURE HIGH PROTEIN 237 ML CAN PO SCH (08:38)
[2021-03-13] MEDS: DULOXETINE 30 MG CAP PO SCH ×2 (08:38→14:03)
[2021-03-13] MEDS: ASPIRIN EC 81 MG TAB PO SCH (08:47)
[2021-03-13] MEDS ORDERED: FENTANYL CITR 100 MCG/2 ML ONE (10:04)
[2021-03-13] MEDS ORDERED: MIDAZOLAM HCL 2 MG/2 ML INJ ONE ×2 (10:04→10:30)
[2021-03-13] MEDS ORDERED: NA CHLORIDE 0.9% 500 ML ONE (10:04)
[2021-03-13] MEDS ORDERED: ATROPINE SULF 1 MG/10 ML SYR IV ONE (10:04)
[2021-03-13] MEDS ORDERED: NA CHLORIDE 0.9% 0 ML ONE (10:05)
[2021-03-13 11:01] VITALS: O2SAT 95
[2021-03-13 11:55] VITALS: TEMP 97.7
[2021-03-13] MEDS ORDERED: ACETAMINOPHEN 325 MG TABLET PO PRN (14:00)
[2021-03-13] MEDS ORDERED: NA CHLORIDE 0.9% 1,000 ML IV SCH (14:00)
[2021-03-13 14:46] VITALS: BP 100/63
--- NOTE | 2021-03-14 10:11 | CON ---
Date of Consultation: 03/11/2021 Reason For Admission: Chest pain. History Of Present Illness: Ms. Garcia is a 60-year-old white woman, who has a history of rheumatoi d arthritis, hypertension, dyslipidemia, came in with dyspnea on exertion that is constant, chest joleen n radiating to the arm, shortness of breath, nausea, numbness in the arm. No PND, orthopnea, pedal e farhad, palpitation, or syncope. She is already ruled out for an OH. Past Medical History: As stated above. Allergies: SHE IS ALLERGIC TO TYLENOL AND CODEINE. Review of Systems: Negative. Social History: Negative. Family History: Noncontributory. Physical Examination: General: Within normal limit. Vital Signs: Stable. Afebrile. HEENT: Negative. Neck: Supple. No bruit. Chest: Clear. Cardiac: Normal. Abdomen: Benign. Extremities: No clubbing, cyanosis, or edema. Diagnostic Data: Basically all unremarkable. Medications: Her medications at home include lisinopril with HCTZ, Cymbalta, Synthroid, and Topamax. Impression And Plan: This is a patient who has a history of tobacco use, but quit 6 months ago; has a history of hypertension. Symptoms are suggestive of coronary artery disease. Although, her sympto ms lasted for hours, but yet her EKG is unremarkable and her troponin is negative. I think we should do a Lexiscan and an echocardiogram before making further decisions. Continue her present regimen o therwise. OCTAVIO/MOISES Voice ID: [id number] Report ID: [id number]
--- NOTE | 2021-03-14 12:26 | OP ---
Date of Procedure: 03/13/2021 Surgeon: Reg Tamayo MD Green Coffee Blender: Mr. Maverick Nathan. Normal coronary. Procedure: Left heart catheterization with selective coronary arteriogram. Indication: Chest pain and abnormal stress test. History Of Present Illness: Ms. Garcia was brought to the finishing lab technician as an inpatient on 03/13/2021. She was prepped and draped in the routine sterile fashion. Given Versed and fentanyl for sedation. A 6-Turkmen sheath was introduced in the right common femoral artery after 10 cc of xylocaine using th e Seldinger technique. Lele catheter left and right JR4 and JL4 were used to cannulate the left m ain and right main respectively. She was found to have perfectly normal coronaries. The patient dustin erated the procedure well. There were no complications. Blood Loss: 5 mL. Anesthesia: Total conscious sedation was 30 minutes. Final Diagnosis: Chest pain, positive stress test with normal coronaries. The patient's angiography in the groin was normal. Angio-Seal was used to close the case. Plan: For her to stay in the hospital for 2 hours of bedrest and then she can go home after that, wh enever it is okay with Dr. Bernstein and we will see her in the office in the next 2 to 3 weeks. No changes in her medical therapy at this point . OCTAVIO/MOISES Voice ID: [id number] Report ID: [id number]
--- NOTE | 2021-03-15 09:03 | PN ---
Date of Progress Note: 03/12/2021 Subjective: Ms. Garcia is a 60-year-old, who was admitted on 03/10/2021, underwent a stress test on 03/12/2021 showing anterior ischemia. I will discuss the case with her later. She will need a hear t catheterization to define her coronary anatomy. She has a high risk factor profile including her a ge, hypertension, history of tobacco abuse. We will see what the catheterization shows before making further decisions. OCTAVIO/MOISES Voice ID: [id number] Report ID: [id number]
== END 2021-03-13 15:18 | disposition home health service (06) | DRG 287 ==
LOC: ER 21:01 → ERHOLD 23:57 → 2ND 03-11 00:30 → OBSVTOIN 03-13 07:46
PROVIDERS: ADMIT Internal Medicine; ATTEND Internal Medicine
PROC: B201YZZ Plain Radiography of Multiple Coronary Arteries using Other Contrast (ICD-10-PCS; principal; 2021-03-13)
DX: R07.9 Chest pain, unspecified (principal); R94.39 Abnormal result of other cardiovascular function study; I10 Essential (primary) hypertension; E03.9 Hypothyroidism, unspecified; M06.9 Rheumatoid arthritis, unspecified; E05.80 Other thyrotoxicosis without thyrotoxic crisis or storm; I25.9 Chronic ischemic heart disease, unspecified; I25.10 Atherosclerotic heart disease of native coronary artery without angina pectoris; Z87.891 Personal history of nicotine dependence
CPT/HCPCS: 36415; 71045; 78452; 80048; 80053; 80061; 80076; 81003; 83735; 83880; 84100; 84439; 84443; 84484; 85025; 85379; 85610; 93005; 93017; 93306; 93454; 94760; 96374; 96375; 99285; A9500; C1760; C1893; G0378; J0583; J1644; J1650; J2250; J2270; J2405; J2785; J3010; J7040

== ENCOUNTER 2022-06-29 18:48 | Emergency (ER) | payer OTHER ==
--- OUTSIDE RECORDS SUMMARY | 2022-06-29 18:59 | XMS REPORT | Continuity of Care Document ---
:1960 Author Organization [facility] t Address [address] [place] [address] Care Team Providers Name Role Phone Unknown, Physician Primary Care Physician Unavailable Marly Burt Attending Clinician Unavailable Marc Walsh Attending Clinician Unavailable Crissy Cordoba Attending Clinician Unavailable SHANITA QUINN Attending Clinician Unavailable Maame Franklin Attending Clinician Doctor Unassigned, [place] Attending Clinician Unavailable Caden Deleon MD Attending Clinician [facility] Pcp Assessment Attending Clinician Unavailable Unknown, Attending Attending Clinician Unavailable UNKNOWN, ATTENDING Attending Clinician Unavailable Antoine Bellamy DO Attending Clinician Wes Lopez DO Attending Clinician Payers Payer Name Policy Type Policy Number Effective Date Expiration Date S marquita GAMAR [id number] [address] [facility] 00:00:00 PLAN Amb[employer] from [id number] 2021 [facility] 00:00:00 - [facility] Ambetter from [id number] 2021 [facility] 00:00:00 - [facility] Ambetter from [id number] 2021 [facility] 00:00:00 [facility] Ambetter from [id number] 2021 [facility] 00:00:00 [facility] Problems Condition Condition Condition Status Onset Resolution Last Treating Co mments Source Name Details Category Date Date Treatment Clinician Date Depression Depression Problem Active C ommon [facility] [id number] Insomnia, Problem Active Com mon unspecifie Spirit d [facility] Migraine Migraine Problem Active Commo n [facility] Hyperlipid Hyperlipid Problem Active C ommon emia emia [facility] [id number] Acquired Problem Active Comm on hypothyroi Spirit [facility] [id number] Polyarthra Problem Active Com mon lgia [facility] Seasonal Seasonal Problem Active Commo n allergy allergies [facility] [id number] Essential Problem Active Comm on hypertensi Spirit [facility] Thyroid Thyroid Problem Active Common disease disease [facility] [id number] Obesity Problem Active Commo n (BMI Spirit 30-39.9) [facility] Gastroesop GERD Problem Active Commo n hageal (gastroeso Spirit reflux [facility] disease [facility] Hypertensi Problem Active C ommon on on [facility] Hypothyroi Hypothyroi Problem Active C ommon d d [facility] Alopecia Hair loss Problem Active Comm on [facility] Allergies, Adverse Reactions, Alerts Allergy Allergy Status Severity Reaction(s) Onset Inactive Treating Comm ents Source Name Type Date Date Clinician Acetamin Allergy Active Other [facility] ophen to 6-29 reaction( Health substanc 00:00: s): e 00 Nausea/Vo miting Hydrocod Allergy Active Other [facility] one to 6-29 reaction( Health substanc 00:00: s): e 00 Nausea/Vo miting Hydrocod Propensi Active Nausea Univer s one-Acet ty to and/or 7-15 ity of aminophe adverse Vomiting 00:00: [place] n reaction 00 Medical s Branch HYDROCOD DRUG Active N/V Univers ONE-ACET 7-15 ity of AMINOPHE 00:00: [place] N 00 Medical Branch Hydrocod Drug Active Nausea And Other [facility] one-Acet Allergy Vomiting 7-15 reaction( He alth aminophe 00:00: s): n 00 vomiting 4614 Drug Active vomiting Common allergy Spirit - [facility] Social History Social Habit Start Date Stop Date Quantity Comments Source History of Tobacco Common [facility] - Use [facility] Sex Assigned At Common Sp ely - [facility] Exposure to Not sure [facility] SARS-CoV-2 (event) Tobacco use and 2021-09-15 2021-09-15 Smokeless [place] [facility] exposure 00:00:00 00:00:00 tobacco non-user Alcohol intake 2021-09-15 2021-09-15 Ex-drinker [facility] 00:00:00 00:00:00 (finding) Cigarettes smoked 2019-12-01 2019-12-01 Univers ity of current (pack per 00:00:00 00:00:00 [facility] ) - Reported Branch Cigarette 2019-12-01 2019-12-01 University of pack-years 00:00:00 00:00:[address] [facility] Alcohol Comment 2015-10-22 2015-10-22 hx of heavy Universi ty of 00:00:00 00:00:00 alcohol use quit [facility] dical in 2013 Branch Smoking Status Start Date Stop Date Source Former Smoker 2022-04-24 00:00:00 2022-04-24 00:00:00 [facility] pirit [facility] Medications Ordered Filled Start Stop Current Ordering Indication Dosage Frequency Signature Comments Components Source Medication Medication Date Date Medication? Clinician (SIG) Name Name levothyroxi 2022- No [id number] 137ug QD Take 137 [facility] ne 09-16 01-05 mcg by Health (Synthroid, 00:00: 05:59 mouth 1 Levoxyl) 00 :00 (one) time 137 MCG each day. tablet TAKE ONE (1) TABLET(S) BY MOUTH EVERY MORNING ON AN EMPTY STOMACH levothyroxi 2022- No [id number] 137ug QD Take 137 [facility] ne -04 01-05 mcg by Health (Synthroid, 00:00: 05:59 mouth 1 Levoxyl) 00 :00 (one) time 137 MCG each day. tablet TAKE ONE (1) TABLET(S) BY MOUTH EVERY MORNING ON AN EMPTY STOMACH dexamethaso 2021- No [id number] Take 1 UT ne 1-04 01-15 tablet Health (Decadron) 00:00: 05:59 when 1 MG tablet 00 :00 directed DULoxetine 2020-09 Yes 120mg QD Take 120 UT (Cymbalta) 2-16 mg by Health [address] 00:00: mouth 1 capsule 00 (one) time each day. traZODone 2020-09 Yes 50mg QD Take 50 mg [facility] (Desyrel) 2-16 by mouth Health 50 MG 00:00: at night tablet 00 if needed. topiramate 2020-09 Yes 1{tbl} Q.5D Take 1 UT 50 MG 2-16 tablet by Health tablet 00:00: mouth 2 00 (two) times a day. hydrOXYzine 2020-09 Yes TAKE ONE UT pamoate 2-16 (1) Health (Vistaril) 00:00: CAPSULE(S) 25 MG 00 BY MOUTH capsule AT BEDTIME NEEDED. DULoxetine 2020-09 Yes 120mg QD Take 120 UT (Cymbalta) 2-16 mg by Health [address] 00:00: mouth 1 capsule 00 (one) time each day. traZODone 2020-09 Yes 50mg QD Take 50 mg UT (Desyrel) 2-16 by mouth Health 50 MG 00:00: at night tablet 00 if needed. topiramate 2020-09 Yes 1{tbl} Q.5D Take 1 UT 50 MG 2-16 tablet by Health tablet 00:00: mouth 2 00 (two) times a day. hydrOXYzine 2020-09 Yes TAKE ONE UT pamoate 2-16 (1) Health (Vistaril) 00:00: CAPSULE(S) 25 MG 00 BY MOUTH capsule AT BEDTIME NEEDED. levothyroxi 2020-09- No 150ug Take 150 UT ne 2-03 01-04 mcg by Health (Synthroid, 00:00: 00:00 mouth 1 Levoxyl) 00 :00 (one) time 150 MCG each day tablet before breakfast. TAKE ONE (1) TABLET(S) BY MOUTH EVERY MORNING ON AN EMPTY STOMACH Azithromyci Azithromyci 2020- No QD Azithromyc n 250 MG n 250 MG 06-06 in 250 MG 00:00: 00:00 00 :00 Azithromyci Azithromyci 2020- No QD Azithromyc n 250 MG n 250 MG 06-06 in 250 MG 00:00: 00:00 00 :00 atorvastati Yes 40mg Take 40 mg UT n (Lipitor) 03-13 by mouth Heal th 40 MG 00:00: every tablet 00 night. atorvastati Yes 40mg Take 40 mg UT n (Lipitor) 03-13 by mouth Heal th 40 MG 00:00: every tablet 00 night. Aspirin Low Yes 81mg QD Take 81 mg UT Dose 81 MG 6-30 by mouth 1 Hea lth EC tablet 00:00: (one) time 00 each day. Aspirin Low Yes 81mg QD Take 81 mg UT Dose 81 MG 6-30 by mouth 1 Hea lth EC tablet 00:00: (one) time 00 each day. levothyroxi Yes [id number] 175ug Take 1 Univers ne 175 mcg 6-15 tablet by ity of tablet 00:00: mouth [place] 00 every Medical morning. Branch traZODone 2019- Yes [id number] 50mg Take 1 U nivers 50 mg 6-15 tablet by ity of tablet 00:00: mouth at [place] 00 bedtime as Medical needed for Branch Insomnia. DULoxetine 2019- Yes [id number] 120mg Take 2 Univers (CYMBALTA) 6-15 capsules ity o f 60 mg 00:00: by mouth [place] capsule 00 daily. Medical Branch lisinopril- 2019-0 Yes [id number] 1{tbl} Take 1 Univers hydrochloro 6-15 tablet by ity of thiazide 00:00: mouth [place] 20-12.5 mg 00 daily. Medical per tablet Branch DULoxetine 2019- Yes [id number] 120mg Take 2 Univers (CYMBALTA) 5-14 capsules ity o f 60 mg 00:00: by mouth [place] capsule 00 daily. Medical Branch lisinopril- Yes [id number] 1{tbl} Take 1 Univers hydrochloro 5-14 tablet by ity of thiazide 00:00: mouth [place] 20-12.5 mg 00 daily. Medical per tablet Branch DULoxetine 2019-0 Yes [id number] 120mg Take 2 Univers (CYMBALTA) 5-14 capsules ity o f 60 mg 00:00: by mouth [place] capsule 00 daily. Medical Branch lisinopril- Yes [id number] 1{tbl} Take 1 Univers hydrochloro 5-14 tablet by ity of thiazide 00:00: mouth [place] 20-12.5 mg 00 daily. Medical per tablet Branch DULoxetine 2020- No [id number] 120mg Take 2 Univers (CYMBALTA) 5-14 06-15 capsules ity of 60 mg 00:00: 00:00 by mouth [place] capsule 00 :00 daily. Medical Branch lisinopril- 2020- No [id number] 1{tbl} Take 1 Univers hydrochloro 5-14 06-15 tablet by it y of thiazide 00:00: 00:00 mouth [place] 20-12.5 mg 00 :00 daily. Medical per tablet Branch fluticasone Yes [id number] 2{spray Use 2 Univers propionate 3-20 } Sprays in ity of 50 00:00: each [place] mcg/actuati 00 nostril Medic al on nasal daily. Branch spray DULoxetine Yes [id number] 120mg Take 2 Univers (CYMBALTA) 3-20 capsules ity o f 60 mg 00:00: by mouth [place] capsule 00 daily. Medical Branch lisinopril- Yes [id number] 1{tbl} Take 1 Univers hydrochloro 3-20 tablet by ity of thiazide 00:00: mouth [place] 20-12.5 mg 00 daily. Medical per tablet Branch levothyroxi 2019-0 Yes [id number] 175ug Take 1 Univers ne 175 mcg 3-20 tablet by ity of tablet 00:00: mouth [place] 00 every Medical morning. Branch traZODone 0 Yes [id number] 50mg Take 1 U nivers 50 mg 3-20 tablet by ity of tablet 00:00: mouth at [place] 00 bedtime as Medical needed for Branch Insomnia. fluticasone Yes [id number] 2{spray Use 2 Univers propionate 3-20 } Sprays in ity of 50 00:00: each [place] mcg/actuati 00 nostril Medic al on nasal daily. Branch spray DULoxetine 2020-0 Yes [id number] 120mg Take 2 Univers (CYMBALTA) 3-20 capsules ity o f 60 mg 00:00: by mouth [place] capsule 00 daily. Medical Branch lisinopril- 2020-0 Yes [id number] 1{tbl} Take 1 Univers hydrochloro 3-20 tablet by ity of thiazide 00:00: mouth [place] 20-12.5 mg 00 daily. Medical per tablet Branch levothyroxi 2020-0 Yes [id number] 175ug Take 1 Univers ne 175 mcg 3-20 tablet by ity of tablet 00:00: mouth [place] 00 every Medical morning. Branch traZODone 2020-0 Yes [id number] 50mg Take 1 U nivers 50 mg 3-20 tablet by ity of tablet 00:00: mouth at [place] 00 bedtime as Medical needed for Branch Insomnia. fluticasone 2019-0 Yes [id number] 2{spray Use 2 Univers propionate 3-20 } Sprays in ity of 50 00:00: each [place] mcg/actuati 00 nostril Medic al on nasal daily. Branch spray DULoxetine 2020-0 Yes [id number] 120mg Take 2 Univers (CYMBALTA) 3-20 capsules ity o f 60 mg 00:00: by mouth [place] capsule 00 daily. Medical Branch lisinopril- 2019-0 Yes [id number] 1{tbl} Take 1 Univers hydrochloro 3-20 tablet by ity of thiazide 00:00: mouth [place] 20-12.5 mg 00 daily. Medical per tablet Branch levothyroxi 2020-0 Yes [id number] 175ug Take 1 Univers ne 175 mcg 3-20 tablet by ity of tablet 00:00: mouth [place] 00 every Medical morning. Branch traZODone 2020-0 Yes [id number] 50mg Take 1 U nivers 50 mg 3-20 tablet by ity of tablet 00:00: mouth at [place] 00 bedtime as Medical needed for Branch Insomnia. fluticasone 2019-0 Yes [id number] 2{spray Use 2 Univers propionate 3-20 } Sprays in ity of 50 00:00: each [place] mcg/actuati 00 nostril Medic al on nasal daily. Branch spray levothyroxi 2020-0 Yes [id number] 175ug Take 1 Univers ne 175 mcg 3-20 tablet by ity of tablet 00:00: mouth [place] 00 every Medical morning. Branch traZODone 2019-0 Yes [id number] 50mg Take 1 U nivers 50 mg 3-20 tablet by ity of tablet 00:00: mouth at [place] 00 bedtime as Medical needed for Branch Insomnia. fluticasone 2019-0 Yes [id number] 2{spray Use 2 Univers propionate 3-20 } Sprays in ity of 50 00:00: each [place] mcg/actuati 00 nostril Medic al on nasal daily. Branch spray levothyroxi 2019-0 Yes [id number] 175ug Take 1 Univers ne 175 mcg 3-20 tablet by ity of tablet 00:00: mouth [place] 00 every Medical morning. Branch traZODone 2019-0 Yes [id number] 50mg Take 1 U nivers 50 mg 3-20 tablet by ity of tablet 00:00: mouth at [place] 00 bedtime as Medical needed for Branch Insomnia. fluticasone 2019-0 Yes [id number] 2{spray Use 2 Univers propionate 3-20 } Sprays in ity of 50 00:00: each [place] mcg/actuati 00 nostril Medic al on nasal daily. Branch spray levothyroxi 2019- 2020- No [id number] 175ug Take 1 Univers ne 175 mcg 3-20 06-15 tablet by ity of tablet 00:00: 00:00 mouth [place] 00 :00 every Medical morning. Branch traZODone 2019- 2020- No [id number] 50mg Take 1 Univers 50 mg 3-20 06-15 tablet by ity of tablet 00:00: 00:00 mouth at [place] 00 :00 bedtime as Medical needed for Branch Insomnia. DULoxetine 2019- 2020- No [id number] 120mg Take 2 Univers (CYMBALTA) 3-20 05-13 capsules ity of 60 mg 00:00: 00:00 by mouth [place] capsule 00 :00 daily. Medical Branch lisinopril- 2020- No [id number] 1{tbl} Take 1 Univers hydrochloro 3-20 05-13 tablet by it y of thiazide 00:00: 00:00 mouth [place] 20-12.5 mg 00 :00 daily. Medical per tablet Branch rizatriptan 2019-2019- No 10mg Take 10 mg Univers 10 mg 3-17 -17 by mouth ity of tablet 14:42: 00:00 every 2 [place] 33 :00 (two) Medical hours as Branch needed for Migraine. May repeat in 2 hours if needed. No more than 2 per 24 hrs rizatriptan 2019- No 10mg Take 10 mg Univers 10 mg 3-17 -17 by mouth ity of tablet 14:42: 00:00 every 2 [place] 33 :00 (two) Medical hours as Branch needed for Migraine. May repeat in 2 hours if needed. No more than 2 per 24 hrs lisdexamfet 2020- No 60mg Take 60 mg Univers amine 3-17 -17 by mouth ity of (VYVANSE) 14:39: 00:00 every [place] 60 mg 16 :00 morning. Medical capsule Branch lisdexamfet 0 2020- No 60mg Take 60 mg Univers amine 3-17 -17 by mouth ity of (VYVANSE) 14:39: 00:00 every [place] 60 mg 16 :00 morning. Medical capsule Branch dextroamphe 2020- No 30mg Take 30 mg Univers tamine-amph 3-17 -17 by mouth 2 i ty of etamine 14:39: 00:00 (two) [place] (ADDERALL) 10 :00 times Medical 30 mg daily. Branch tablet dextroamphe 2020- No 30mg Take 30 mg Univers tamine-amph 3-17 -17 by mouth 2 i ty of etamine 14:39: 00:00 (two) [place] (ADDERALL) 10 :00 times Medical 30 mg daily. Branch tablet DULoxetine Yes [id number] 120mg Take 2 Univers (CYMBALTA) 3-17 capsules ity o f 60 mg 00:00: by mouth [place] capsule 00 daily. Medical Branch levothyroxi 2019- Yes [id number] 175ug Take 1 Univers ne 175 mcg 3-17 tablet by ity of tablet 00:00: mouth [place] 00 every Medical morning. Branch lisinopril- 2019- Yes [id number] 1{tbl} Take 1 Univers hydrochloro 3-17 tablet by ity of thiazide 00:00: mouth [place] 20-12.5 mg 00 daily. Medical per tablet Branch rizatriptan 2020-0 Yes [id number] Take one Univers 10 mg 3-17 by mouth ity of disintegrat 00:00: every 2 [place] tablet 00 hours prn Medi sakina headache. Branch Max of 2 tablets per day DULoxetine 2019-0 Yes [id number] 120mg Take 2 Univers (CYMBALTA) 3-17 capsules ity o f 60 mg 00:00: by mouth [place] capsule 00 daily. Medical Branch levothyroxi 2019-0 Yes [id number] 175ug Take 1 Univers ne 175 mcg 3-17 tablet by ity of tablet 00:00: mouth [place] 00 every Medical morning. Branch lisinopril- 0 Yes [id number] 1{tbl} Take 1 Univers hydrochloro 3-17 tablet by ity of thiazide 00:00: mouth [place] 20-12.5 mg 00 daily. Medical per tablet Branch rizatriptan 0 Yes [id number] Take one Univers 10 mg 3-17 by mouth ity of disintegrat 00:00: every 2 [place] tablet 00 hours prn Medi sakina headache. Branch Max of 2 tablets per day DULoxetine 2019-0 Yes [id number] 120mg Take 2 Univers (CYMBALTA) 3-17 capsules ity o f 60 mg 00:00: by mouth [place] capsule 00 daily. Medical Branch levothyroxi 2019-0 Yes [id number] 175ug Take 1 Univers ne 175 mcg 3-17 tablet by ity of tablet 00:00: mouth [place] 00 every Medical morning. Branch lisinopril- 0 Yes [id number] 1{tbl} Take 1 Univers hydrochloro 3-17 tablet by ity of thiazide 00:00: mouth [place] 20-12.5 mg 00 daily. Medical per tablet Branch rizatriptan 2019-0 Yes [id number] Take one Univers 10 mg 3-17 by mouth ity of disintegrat 00:00: every 2 [place] tablet 00 hours prn Medi sakina headache. Branch Max of 2 tablets per day rizatriptan 2019-0 Yes [id number] Take one Univers 10 mg 3-17 by mouth ity of disintegrat 00:00: every 2 [place] tablet 00 hours prn Medi sakina headache. Branch Max of 2 tablets per day rizatriptan 2019-0 Yes [id number] Take one Univers 10 mg 3-17 by mouth ity of disintegrat 00:00: every 2 [place] tablet 00 hours prn Medi sakina headache. Branch Max of 2 tablets per day rizatriptan 2020-0 Yes [id number] Take one Univers 10 mg 3-17 by mouth ity of disintegrat 00:00: every 2 [place] tablet 00 hours prn Medi sakina headache. Branch Max of 2 tablets per day rizatriptan 2020-0 Yes [id number] Take one Univers 10 mg 3-17 by mouth ity of disintegrat 00:00: every 2 [place] tablet 00 hours prn Medi sakina headache. Branch Max of 2 tablets per day rizatriptan 2020-0 Yes [id number] Take one Univers 10 mg 3-17 by mouth ity of disintegrat 00:00: every 2 [place] tablet 00 hours prn Medi sakina headache. Branch Max of 2 tablets per day rizatriptan 2020-0 Yes [id number] Take one Univers 10 mg 3-17 by mouth ity of disintegrat 00:00: every 2 [place] tablet 00 hours prn Medi sakina headache. Branch Max of 2 tablets per day DULoxetine 2019- No [id number] 120mg Take 2 Univers (CYMBALTA) 3-17 03-20 capsules ity of 60 mg 00:00: 00:00 by mouth [place] capsule 00 :00 daily. Medical Branch levothyroxi 2019- No [id number] 175ug Take 1 Univers ne 175 mcg 3-17 03-20 tablet by ity of tablet 00:00: 00:00 mouth [place] 00 :00 every Medical morning. Branch lisinopril- 2019- No [id number] 1{tbl} Take 1 Univers hydrochloro 3-17 03-20 tablet by it y of thiazide 00:00: 00:00 mouth [place] 20-12.5 mg 00 :00 daily. Medical per tablet Branch DULoxetine 2019- No [id number] 120mg Take 2 Univers (CYMBALTA) 3-17 03-20 capsules ity of 60 mg 00:00: 00:00 by mouth [place] capsule 00 :00 daily. Medical Branch levothyroxi 2020- No [id number] 175ug Take 1 Univers ne 175 mcg 3-17 03-20 tablet by ity of tablet 00:00: 00:00 mouth [place] 00 :00 every Medical morning. Branch lisinopril- 2020- No [id number] 1{tbl} Take 1 Univers hydrochloro 3-17 03-20 tablet by it y of thiazide 00:00: 00:00 mouth [place] 20-12.5 mg 00 :00 daily. Medical per tablet Branch traZODone 2018-09 Yes [id number] 50mg Take 1 U nivers 50 mg 2-17 tablet by ity of tablet 00:00: mouth at [place] 00 bedtime as Medical needed for Branch Insomnia. traZODone 2018-09 Yes [id number] 50mg Take 1 U nivers 50 mg 2-17 tablet by ity of tablet 00:00: mouth at [place] 00 bedtime as Medical needed for Branch Insomnia. traZODone 2018-09 Yes [id number] 50mg Take 1 U nivers 50 mg 2-17 tablet by ity of tablet 00:00: mouth at [place] 00 bedtime as Medical needed for Branch Insomnia. traZODone 2018-09 Yes [id number] 50mg Take 1 U nivers 50 mg 2-17 tablet by ity of tablet 00:00: mouth at [place] 00 bedtime as Medical needed for Branch Insomnia. traZODone 2018-09 Yes [id number] 50mg Take 1 U nivers 50 mg 2-17 tablet by ity of tablet 00:00: mouth at [place] 00 bedtime as Medical needed for Branch Insomnia. traZODone 2018-09 2020- No [id number] 50mg Take 1 Univers 50 mg 2-17 03-20 tablet by ity of tablet 00:00: 00:00 mouth at [place] 00 :00 bedtime as Medical needed for Branch Insomnia. traZODone 2018-09 2020- No [id number] 50mg Take 1 Univers 50 mg 2-17 03-20 tablet by ity of tablet 00:00: 00:00 mouth at [place] 00 :00 bedtime as Medical needed for Branch Insomnia. lisinopril- Yes [id number] 1{tbl} Take 1 Univers hydrochloro 9-09 tablet by ity of thiazide 00:00: mouth [place] 20-12.5 mg 00 daily. Medical per tablet Branch DULoxetine Yes [id number] 120mg Take 2 Univers (CYMBALTA) 9-09 capsules ity o f 60 mg 00:00: by mouth [place] capsule 00 daily. Medical Branch levothyroxi Yes [id number] 175ug Take 1 Univers ne 175 mcg 05-22 tablet by ity of tablet 00:00: mouth [place] 00 every Medical morning. Branch lisinopril- Yes [id number] 1{tbl} Take 1 Univers hydrochloro 05-22 tablet by ity of thiazide 00:00: mouth [place] 20-12.5 mg 00 daily. Medical per tablet Branch DULoxetine Yes [id number] 120mg Take 2 Univers (CYMBALTA) 05-22 capsules ity o f 60 mg 00:00: by mouth [place] capsule 00 daily. Medical Branch levothyroxi Yes [id number] 175ug Take 1 Univers ne 175 mcg 05-22 tablet by ity of tablet 00:00: mouth [place] 00 every Medical morning. Branch lisinopril- 2020- No [id number] 1{tbl} Take 1 Univers hydrochloro 05-22 tablet by it y of thiazide 00:00: 00:00 mouth [place] 20-12.5 mg 00 :00 daily. Medical per tablet Branch DULoxetine 2020- No [id number] 120mg Take 2 Univers (CYMBALTA) 05-22 capsules ity of 60 mg 00:00: 00:00 by mouth [place] capsule 00 :00 daily. Medical Branch levothyroxi 2020- No [id number] 175ug Take 1 Univers ne 175 mcg 05-22 tablet by ity of tablet 00:00: 00:00 mouth [place] 00 :00 every Medical morning. Branch lisinopril- 2020- No [id number] 1{tbl} Take 1 Univers hydrochloro 05-22 tablet by it y of thiazide 00:00: 00:00 mouth [place] 20-12.5 mg 00 :00 daily. Medical per tablet Branch DULoxetine 2020- No [id number] 120mg Take 2 Univers (CYMBALTA) 05-22 capsules ity of 60 mg 00:00: 00:00 by mouth [place] capsule 00 :00 daily. Medical Branch levothyroxi 2020- No [id number] 175ug Take 1 Univers ne 175 mcg 05-22 tablet by ity of tablet 00:00: 00:00 mouth [place] 00 :00 every Medical morning. Branch traZODONE Yes [id number] 50mg Take 1 U nivers 50 mg 8-20 tablet by ity of tablet 00:00: mouth at [place] 00 bedtime as Medical needed for Branch Insomnia. traZODONE Yes [id number] 50mg Take 1 U nivers 50 mg 8-20 tablet by ity of tablet 00:00: mouth at [place] 00 bedtime as Medical needed for Branch Insomnia. traZODONE 2019- No [id number] 50mg Take 1 Univers 50 mg 4-29 08-20 tablet by ity of tablet 00:00: 00:00 mouth at [place] 00 :00 bedtime as Medical needed for Branch Insomnia. rizatriptan Yes [id number] Take one Univers 10 mg 2-26 by mouth ity of disintegrat 00:00: every 2 [place] tablet 00 hours prn Medi sakina headache. Branch Max of 2 tablets per day lisinopril- Yes [id number] 1{tbl} Take 1 Univers hydrochloro 2-26 tablet by ity of thiazide 00:00: mouth [place] 20-12.5 mg 00 daily. Medical per tablet Branch DULoxetine Yes [id number] 120mg Take 2 Univers (CYMBALTA) 2-26 capsules ity o f 60 mg 00:00: by mouth [place] capsule 00 daily. Medical Branch levothyroxi Yes [id number] 175ug Take 1 Univers ne 175 mcg 2-26 tablet by ity of tablet 00:00: mouth [place] 00 every Medical morning. Branch rizatriptan Yes [id number] Take one Univers 10 mg 2-26 by mouth ity of disintegrat 00:00: every 2 [place] tablet 00 hours prn Medi sakina headache. Branch Max of 2 tablets per day rizatriptan Yes [id number] Take one Univers 10 mg 2-26 by mouth ity of disintegrat 00:00: every 2 [place] tablet 00 hours prn Medi sakina headache. Branch Max of 2 tablets per day rizatriptan 2020- No [id number] Take one Univers 10 mg 2-26 03-17 by mouth ity of disintegrat 00:00: 00:00 every 2 [place] ing tablet 00 :00 hours prn Medi sakina headache. Branch Max of 2 tablets per day rizatriptan 2020- No [id number] Take one Univers 10 mg 11-08-17 by mouth ity of disintegrat 00:00: 00:00 every 2 [place] ing tablet 00 :00 hours prn Medi sakina headache. Branch Max of 2 tablets per day lisinopril- 2019- No [id number] 1{tbl} Take 1 Univers hydrochloro 11-08 tablet by it y of thiazide 00:00: 00:00 mouth [place] 20-12.5 mg 00 :00 daily. Medical per tablet Branch DULoxetine 2019- No [id number] 120mg Take 2 Univers (CYMBALTA) 11-08- capsules ity of 60 mg 00:00: 00:00 by mouth [place] capsule 00 :00 daily. Medical Branch levothyroxi 2019- No [id number] 175ug Take 1 Univers ne 175 mcg 11-08 tablet by ity of tablet 00:00: 00:00 mouth [place] 00 :00 every Medical morning. Branch rizatriptan Yes 10mg Take 10 mg Univers 10 mg 7-24 by mouth ity of tablet 21:23: every 2 [place] [id number] (two) Medical hours as Branch needed for Migraine. May repeat in 2 hours if needed. No more than 2 per 24 hrs rizatriptan Yes 10mg Take 10 mg Univers 10 mg 7-24 by mouth ity of tablet 21:23: every 2 [place] 47 (two) Medical hours as Branch needed for Migraine. May repeat in 2 hours if needed. No more than 2 per 24 hrs rizatriptan Yes 10mg Take 10 mg [facility] 10 mg 7-24 by mouth ity of tablet 21:23: every 2 [place] 47 (two) Medical hours as Branch needed for Migraine. May repeat in 2 hours if needed. No more than 2 per 24 hrs topiramate Yes 25mg Take 25 mg U n[facility] 25 mg Cp24 7-24 by mouth ity o f 21:22: daily. [address] Branch topiramate Yes 25mg Take 25 mg U nivers 25 mg Cp24 7-24 by mouth ity o f 21:22: daily. [address] Branch topiramate Yes 25mg Take 25 mg U nivers 25 mg Cp24 7-24 by mouth ity o f 21:22: daily. [address] topiramate 2017-0 Yes 25mg Take 25 mg U nivers 25 mg Cp24 7-24 by mouth ity o f 21:22: daily. [address] topiramate 2017-0 Yes 25mg Take 25 mg U nivers 25 mg Cp24 7-24 by mouth ity o f 21:22: daily. [address] topiramate 2017-0 Yes 25mg Take 25 mg U n[facility] 25 mg Cp24 7-24 by mouth ity o f 21:22: daily. [address] topiramate 2017-0 Yes 25mg Take 25 mg U nivers 25 mg Cp24 7-24 by mouth ity o f 21:22: daily. [address] topiramate 2017-0 Yes 25mg Take 25 mg U nivers 25 mg Cp24 7-24 by mouth ity o f 21:22: daily. [address] topiramate 2017-0 Yes 25mg Take 25 mg [facility] n[facility] 25 mg Cp24 7-24 by mouth ity o f 21:22: daily. [address] topiramate 2017-0 Yes 25mg Take 25 mg U nivers 25 mg Cp24 7-24 by mouth ity o f 21:22: daily. [address] topiramate 2017-0 Yes 25mg Take 25 mg U nivers 25 mg Cp24 7-24 by mouth ity o f 21:22: daily. [address] topiramate 2017-0 Yes 25mg Take 25 mg U nivers 25 mg Cp24 7-24 by mouth ity o f 21:22: daily. [address] topiramate 2017-0 Yes 25mg Take 25 mg U nivers 25 mg Cp24 7-24 by mouth ity o f 21:22: daily. [address] vitamin C 2016-0 Yes 2000mg Take 2,000 [facility] with ramón 2-09 mg by ity of hips 1,000 15:56: mouth [place] mg tablet 38 daily. [facility] Branch GLUC 2016-0 Yes 4g/d Take 4 [facility] HCL/GLUC 2-09 g/day by ity of ACEVEDO/AC-ALP-D 15:56: mouth [place] -GLUC 38 daily. Medical (GLUCOSAMIN Branch E COMPLEX ORAL) naproxen 2016-0 Yes 220mg Take 220 Univ ers sodium 2-09 mg by ity of (ALEVE) 220 15:56: mouth 2 [place] mg [place] 38 (two) Medical times Branch daily. aspirin 325 2016-0 Yes 650mg Take 650 U nivers mg tablet 2-09 mg by ity of 15:56: mouth [place] 38 every 6 Medical (six) Branch hours as needed for Pain (scale 1-3). CALCIUM 2016-0 Yes 1{tbl} Take 1 Tab Un yazmin CARB/MAGNES 2-09 by mouth ity of IUM CMB #10 15:56: [place]. [place] (SAKINA-MAG 38 Medical ORAL) Branch vitamin C 2016-0 Yes 2000mg Take 2,000 [facility] with ramón 2-09 mg by ity of hips 1,000 15:56: mouth [place] mg tablet 38 daily. Medical Branch GLUC 2016-0 Yes 4g/d Take 4 [facility] HCL/GLUC 2-09 g/day by ity of ACEVEDO/AC-ALP-D 15:56: mouth [place] -GLUC 38 daily. Medical (GLUCOSAMIN Branch E COMPLEX ORAL) lisdexamfet 2016-0 Yes 60mg Take 60 mg [facility] amine 2-09 by mouth ity of (VYVANSE) 15:56: every [place] 60 mg 38 morning. Medical capsule Branch naproxen 2016-0 Yes 220mg Take 220 Univ ers sodium 2-09 mg by ity of (ALEVE) 220 15:56: mouth 2 [place] mg [place] 38 (two) Medical times Branch daily. aspirin 325 2016-0 Yes 650mg Take 650 U nivers mg tablet 2-09 mg by ity of 15:56: mouth [place] 38 every 6 Medical (six) Branch hours as needed for Pain (scale 1-3). CALCIUM 2016-0 Yes 1{tbl} Take 1 Tab Un [facility] CARB/MAGNES 2-09 by mouth ity of IUM CMB #10 15:56: daily. [place] (SAKINA-MAG 38 Medical ORAL) Branch dextroamphe 2016-0 Yes 30mg Take 30 mg [facility] tamine-amph 2-09 by mouth 2 it y of etamine 15:56: (two) [place] (ADDERALL) 38 times Medical 30 mg daily. Branch tablet vitamin C 2016-0 Yes 2000mg Take 2,000 [facility] with ramón 2-09 mg by ity of hips 1,000 15:56: mouth [place] mg tablet 38 daily. Medical Branch GLUC 2016-0 Yes 4g/d Take 4 [facility] HCL/GLUC 2-09 g/day by ity of ACEVEDO/AC-ALP-D 15:56: mouth [place] -GLUC 38 daily. Medical (GLUCOSAMIN Branch E COMPLEX ORAL) naproxen 2016-0 Yes 220mg Take 220 Univ ers sodium 2-09 mg by ity of (ALEVE) 220 15:56: mouth 2 [place] mg [place] 38 (two) Medical times Branch daily. naproxen 2016-0 Yes 220mg Take 220 Univ ers sodium 2-09 mg by ity of (ALEVE) 220 15:56: mouth 2 [place] mg [place] 38 (two) Medical times Branch daily. aspirin 325 2016-0 Yes 650mg Take 650 U nivers mg tablet 2-09 mg by ity of 15:56: mouth [place] 38 every 6 Medical (six) Branch hours as needed for Pain (scale 1-3). aspirin 325 2016-0 Yes 650mg Take 650 U nivers mg tablet 2-09 mg by ity of 15:56: mouth [place] 38 every 6 Medical (six) Branch hours as needed for Pain (scale 1-3). CALCIUM 2016-0 Yes 1{tbl} Take 1 Tab Un [facility] CARB/MAGNES 2-09 by mouth ity of IUM CMB #10 15:56: daily. [place] (SAKINA-MAG 38 Medical ORAL) Branch vitamin C 2016-0 Yes 2000mg Take 2,000 [facility] with ramón 2-09 mg by ity of hips 1,000 15:56: mouth [place] mg tablet 38 daily. Medical Branch GLUC 2016-0 Yes 4g/d Take 4 [facility] HCL/GLUC 2-09 g/day by ity of ACEVEDO/AC-ALP-D 15:56: mouth [place] -GLUC 38 daily. Medical (GLUCOSAMIN Branch E COMPLEX ORAL) naproxen 2016-0 Yes 220mg Take 220 Univ ers sodium 2-09 mg by ity of (ALEVE) 220 15:56: mouth 2 [place] mg [place] 38 (two) Medical times Branch daily. aspirin 325 2016-0 Yes 650mg Take 650 U nivers mg tablet 2-09 mg by ity of 15:56: mouth [place] 38 every 6 Medical (six) Branch hours as needed for Pain (scale 1-3). CALCIUM 2016-0 Yes 1{tbl} Take 1 Tab Un yazmin CARB/MAGNES 2-09 by mouth ity of IUM CMB #10 15:56: daily. [place] (SAKINA-MAG 38 Medical ORAL) Branch vitamin C 2016-0 Yes 2000mg Take 2,000 [facility] with ramón 2-09 mg by ity of hips 1,000 15:56: mouth [place] mg tablet 38 daily. Medical Branch GLUC 2016-0 Yes 4g/d Take 4 [facility] HCL/GLUC 2-09 g/day by ity of ACEVEDO/AC-ALP-D 15:56: mouth [place] -GLUC 38 daily. Medical (GLUCOSAMIN Branch E COMPLEX ORAL) naproxen 2016-0 Yes 220mg Take 220 Univ ers sodium 2-09 mg by ity of (ALEVE) 220 15:56: mouth 2 [place] mg [place] 38 (two) Medical times Branch daily. aspirin 325 2016-0 Yes 650mg Take 650 U nivers mg tablet 2-09 mg by ity of 15:56: mouth [place] 38 every 6 Medical (six) Branch hours as needed for Pain (scale 1-3). CALCIUM 20160 Yes 1{tbl} Take 1 Tab Un [facility]az[facility] CARB/MAGNES 2-09 by mouth ity of IUM CMB #10 15:56: [facility] Branch CALCIUM 2015-0 Yes 1{tbl} Take 1 Tab Un yazmin CARB/MAGNES 2-09 by mouth ity of IUM CMB #10 15:56: [facility]. [facility]SAK[facility] Medical ORAL[facility] Branch vitamin C 2016- Yes 2000mg Take 2,000 [facility] with ramón 2-09 mg by ity of hips 1,000 15:56: mouth [place] mg tablet 38 daily. Medical Branch GLUC 2016-0 Yes 4g/d Take 4 [facility] HCL/GLUC 2-09 g/day by ity of ACEVEDO/AC-ALP-D 15:56: mouth [place] -GLUC 38 daily. Medical (GLUCOSAMIN Branch E COMPLEX ORAL) vitamin C 2016-0 Yes 2000mg Take 2,000 [facility] with ramón 2-09 mg by ity of hips 1,000 15:56: mouth [place] mg tablet 38 daily. Medical Branch GLUC 2016-0 Yes 4g/d Take 4 [facility] HCL/GLUC 2-09 g/day by ity of ACEVEDO/AC-ALP-D 15:56: mouth [place] -GLUC 38 daily. Medical (GLUCOSAMIN Branch E COMPLEX ORAL) naproxen 2016-0 Yes 220mg Take 220 Univ ers sodium 2-09 mg by ity of (ALEVE) 220 15:56: mouth 2 [place] mg [place] 38 (two) Medical times Branch daily. aspirin 325 2016-0 Yes 650mg Take 650 U nivers mg tablet 2-09 mg by ity of 15:56: mouth [place] 38 every 6 Medical (six) Branch hours as needed for Pain (scale 1-3). CALCIUM 2016-0 Yes 1{tbl} Take 1 Tab Un yazmin CARB/MAGNES 2-09 by mouth ity of IUM CMB #10 15:56: daily. [place] (SAKINA-MAG 38 Medical ORAL) Branch vitamin C 2016-0 Yes 2000mg Take 2,000 [facility] with ramón 2-09 mg by ity of hips 1,000 15:56: mouth [place] mg tablet 38 daily. Medical Branch GLUC 2016-0 Yes 4g/d Take 4 [facility] HCL/GLUC 2-09 g/day by ity of ACEVEDO/AC-ALP-D 15:56: mouth [place] -GLUC 38 daily. Medical (GLUCOSAMIN Branch E COMPLEX ORAL) naproxen 2016-0 Yes 220mg Take 220 Univ ers sodium 2-09 mg by ity of (ALEVE) 220 15:56: mouth 2 [place] mg [place] 38 (two) Medical times Branch daily. aspirin 325 2016-0 Yes 650mg Take 650 U nivers mg tablet 2-09 mg by ity of 15:56: mouth [place] 38 every 6 Medical (six) Branch hours as needed for Pain (scale 1-3). CALCIUM 2016-0 Yes 1{tbl} Take 1 Tab Un yazmin CARB/MAGNES 2-09 by mouth ity of IUM CMB #10 15:56: daily. [place] (SAKINA-MAG 38 Medical ORAL) Branch vitamin C 2016-0 Yes 2000mg Take 2,000 [facility] with ramón 2-09 mg by ity of hips 1,000 15:56: mouth [place] mg tablet 38 daily. Medical Branch GLUC 2016-0 Yes 4g/d Take 4 [facility] HCL/GLUC 2-09 g/day by ity of ACEVEDO/AC-ALP-D 15:56: mouth [place] -GLUC 38 daily. Medical (GLUCOSAMIN Branch E COMPLEX ORAL) naproxen 2016-0 Yes 220mg Take 220 Univ ers sodium 2-09 mg by ity of (ALEVE) 220 15:56: mouth 2 [place] mg [place] 38 (two) Medical times Branch daily. aspirin 325 2016-0 Yes 650mg Take 650 U nivers mg tablet 2-09 mg by ity of 15:56: mouth [place] 38 every 6 Medical (six) Branch hours as needed for Pain (scale 1-3). CALCIUM 2016-0 Yes 1{tbl} Take 1 Tab Un yazmin CARB/MAGNES 2-09 by mouth ity of IUM CMB #10 15:56: daily. [place] (SAKINA-MAG 38 Medical ORAL) Branch vitamin C 2016-0 Yes 2000mg Take 2,000 [facility] with ramón 2-09 mg by ity of hips 1,000 15:56: mouth [place] mg tablet 38 daily. Medical Branch GLUC 2016-0 Yes 4g/d Take 4 [facility] HCL/GLUC 2-09 g/day by ity of ACEVEDO/AC-ALP-D 15:56: mouth [place] -GLUC 38 daily. Medical (GLUCOSAMIN Branch E COMPLEX ORAL) naproxen 2016-0 Yes 220mg Take 220 Univ ers sodium 2-09 mg by ity of (ALEVE) 220 15:56: mouth 2 [place] mg [place] 38 (two) Medical times Branch daily. aspirin 325 2016-0 Yes 650mg Take 650 U nivers mg tablet 2-09 mg by ity of 15:56: mouth [place] 38 every 6 Medical (six) Branch hours as needed for Pain (scale 1-3). CALCIUM 2016-0 Yes 1{tbl} Take 1 Tab Un yazmin CARB/MAGNES 2-09 by mouth ity of IUM CMB #10 15:56: daily. [place] (SAKINA-MAG 38 Medical ORAL) Branch vitamin C 2016-0 Yes 2000mg Take 2,000 [facility] with ramón 2-09 mg by ity of hips 1,000 15:56: mouth [place] mg tablet 38 daily. Medical Branch GLUC 2016-0 Yes 4g/d Take 4 [facility] HCL/GLUC 2-09 g/day by ity of ACEVEDO/AC-ALP-D 15:56: mouth [place] -GLUC 38 daily. Medical (GLUCOSAMIN Branch E COMPLEX ORAL) lisdexamfet 2016-0 Yes 60mg Take 60 mg [facility] amine 2-09 by mouth ity of (VYVANSE) 15:56: every [place] 60 mg 38 morning. Medical capsule Branch dextroamphe Yes 30mg Take 30 mg [facility] tamine-amph 2-09 by mouth 2 it y of etamine 15:56: (two) [place] (ADDERALL) 38 times Medical 30 mg daily. Branch tablet naproxen 0 Yes 220mg Take 220 Univ ers sodium 2-09 mg by ity of (ALEVE) 220 15:56: mouth 2 [place] mg [place] 38 (two) Medical times Branch daily. aspirin 325 2015-0 Yes 650mg Take 650 U nivers mg tablet 2-09 mg by ity of 15:56: mouth [place] 38 every 6 Medical (six) Branch hours as needed for Pain (scale 1-3). CALCIUM 2015- Yes 1{tbl} Take 1 Tab Un yazmin CARB/MAGNES 2-09 by mouth ity of IUM CMB #10 15:56: daily. [place] (SAKINA-MAG 38 Medical ORAL) Branch vitamin C Yes 2000mg Take 2,000 [facility] with ramón 2-09 mg by ity of hips 1,000 15:56: mouth [place] mg tablet 38 daily. Medical Branch GLUC Yes 4g/d Take 4 [facility] HCL/GLUC 2-09 g/day by ity of ACEVEDO/AC-ALP-D 15:56: mouth [place] -GLUC 38 daily. Medical (GLUCOSAMIN Branch E COMPLEX ORAL) lisdexamfet Yes 60mg Take 60 mg [facility] amine 2-09 by mouth ity of (VYVANSE) 15:56: every [place] 60 mg 38 morning. Medical capsule Branch dextroamphe Yes 30mg Take 30 mg [facility] tamine-amph 2-09 by mouth 2 it y of etamine 15:56: (two) [place] (ADDERALL) 38 times Medical 30 mg daily. Branch tablet naproxen 0 Yes 220mg Take 220 Univ ers sodium 2-09 mg by ity of (ALEVE) 220 15:56: mouth 2 [place] mg [place] 38 (two) Medical times Branch daily. aspirin 325 2015-0 Yes 650mg Take 650 U nivers mg tablet 2-09 mg by ity of 15:56: mouth [place] 38 every 6 Medical (six) Branch hours as needed for Pain (scale 1-3). CALCIUM 2016-0 Yes 1{tbl} Take 1 Tab Un yazmin CARB/MAGNES 2-09 by mouth ity of IUM CMB #10 15:56: daily. [place] [facility] (SAKINA-MAG 38 Medical ORAL) Branch vitamin C 2016-0 Yes 2000mg Take 2,000 [facility] with ramón 2-09 mg by ity of hips 1,000 15:56: mouth [place] mg tablet 38 daily. Medical Branch GLUC 2016-0 Yes 4g/d Take 4 [facility] HCL/GLUC 2-09 g/day by ity of ACEVDEO/AC-ALP-D 15:56: mouth [place] -GLUC 38 daily. Medical (GLUCOSAMIN Branch E COMPLEX ORAL) naproxen 2016-0 Yes 220mg Take 220 Univ ers sodium 2-09 mg by ity of (ALEVE) 220 15:56: mouth 2 [place] mg Cap 38 (two) Medical times Branch daily. aspirin 325 2016-0 Yes 650mg Take 650 U nivers mg tablet 2-09 mg by ity of 15:56: mouth [place] 38 every 6 Medical (six) Branch hours as needed for Pain (scale 1-3). CALCIUM 2016-0 Yes 1{tbl} Take 1 Tab Un yazmin CARB/MAGNES 2-09 by mouth ity of IUM CMB #10 15:56: daily. [place] [facility] (SAKINA-MAG 38 Medical ORAL) Branch esomeprazol 2015- Yes 1{capsu Take 1 Cap [facility] e magnesium 2-09 le} by mouth ity of (NEXIUM 15:56: daily. [place] 24HR) 22.3 37 Medical mg CpDR Branch Melatonin 5 2015- Yes 4mg Take 4-8 Un yazmin mg tablet 2-09 mg by ity of 15:56: mouth at [place] 37 bedtime as Medical needed. Branch cetirizine 2016-0 Yes 10mg Take 10 mg U nivers (ZYRTEC) 10 2-09 by mouth ity of mg tablet 15:56: at bedtime [place] 37 as needed Medical for Branch Allergies. diphenhydrA 2016-0 Yes 25mg Take 25-50 [facility] MINE 2-09 mg by ity of (BENADRYL) 15:56: mouth at [place] 25 mg 37 bedtime as Medical tablet needed for Branch Sleep. esomeprazol 2016-0 Yes 1{capsu Take 1 Cap [facility] e magnesium 2-09 le} by mouth ity of (NEXIUM 15:56: daily. [place] 24HR) 22.3 37 Medical mg CpDR Branch Melatonin 5 2015-0 Yes 4mg Take 4-8 Un [facility]azmin mg tablet 2-09 mg by ity of 15:56: mouth at [place] 37 bedtime as Medical needed. Branch cetirizine Yes 10mg Take 10 mg U nivers (ZYRTEC) 10 2-09 by mouth ity of mg tablet 15:56: at bedtime [place] 37 as needed Medical for Branch Allergies. diphenhydrA 2016 Yes 25mg Take 25-50 [facility] MINE 2-09 mg by ity of (BENADRYL) 15:56: mouth at [place] 25 mg 37 bedtime as Medical tablet needed for Branch Sleep. esomeprazol Yes 1{capsu Take 1 Cap [facility] e magnesium 2-09 le} by mouth ity of (NEXIUM 15:56: daily. [place] 24HR) 22.3 37 Medical mg CpDR Branch Melatonin 5 Yes 4mg Take 4-8 Un [facility]azmin mg tablet 2-09 mg by ity of 15:56: mouth at [place] 37 bedtime as Medical needed. Branch cetirizine Yes 10mg Take 10 mg U nivers (ZYRTEC) 10 2-09 by mouth ity of mg tablet 15:56: at bedtime [place] 37 as needed Medical for Branch Allergies. diphenhydrA Yes 25mg Take 25-50 [facility] MINE 2-09 mg by ity of (BENADRYL) 15:56: mouth at [place] 25 mg 37 bedtime as Medical tablet needed for Branch Sleep. esomeprazol 2016-0 Yes 1{capsu Take 1 Cap [facility] e magnesium 2-09 le} by mouth ity of (NEXIUM 15:56: daily. [place] 24HR) 22.3 37 Medical mg CpDR Branch esomeprazol 2016-0 Yes 1{capsu Take 1 Cap [facility] e magnesium 2-09 le} by mouth ity of (NEXIUM 15:56: daily. [place] 24HR) 22.3 37 Medical mg CpDR Branch Melatonin 5 2015-0 Yes 4mg Take 4-8 Un [facility]azmin mg tablet 2-09 mg by ity of 15:56: mouth at [place] 37 bedtime as Medical needed. Branch cetirizine 2015-0 Yes 10mg Take 10 mg U nivers (ZYRTEC) 10 2-09 by mouth ity of mg tablet 15:56: at bedtime [place] 37 as needed Medical for Branch Allergies. Melatonin 5 Yes 4mg Take 4-8 Un [facility]azmin mg tablet 2-09 mg by ity of 15:56: mouth at [place] 37 bedtime as Medical needed. Branch diphenhydrA 2015- Yes 25mg Take 25-50 [facility] MINE 2-09 mg by ity of (BENADRYL) 15:56: mouth at [place] 25 mg 37 bedtime as Medical tablet needed for Branch Sleep. cetirizine 2015- Yes 10mg Take 10 mg U nivers (ZYRTEC) 10 2-09 by mouth ity of mg tablet 15:56: at bedtime [place] 37 as needed Medical for Branch Allergies. diphenhydrA Yes 25mg Take 25-50 [facility] MINE 2-09 mg by ity of (BENADRYL) 15:56: mouth at [place] 25 mg 37 bedtime as Medical tablet needed for Branch Sleep. esomeprazol 2015- Yes 1{capsu Take 1 Cap [facility] e magnesium 2-09 le} by mouth ity of (NEXIUM 15:56: daily. [place] 24HR) 22.3 37 Medical mg CpDR Branch Melatonin 5 Yes 4mg Take 4-8 Un yazmin mg tablet 2-09 mg by ity of 15:56: mouth at [place] 37 bedtime as Medical needed. Branch cetirizine 0 Yes 10mg Take 10 mg U nivers (ZYRTEC) 10 2-09 by mouth ity of mg tablet 15:56: at bedtime [place] 37 as needed Medical for Branch Allergies. diphenhydrA 2016-0 Yes 25mg Take 25-50 [facility] MINE 2-09 mg by ity of (BENADRYL) 15:56: mouth at [place] 25 mg 37 bedtime as Medical tablet needed for Branch Sleep. esomeprazol 2016-0 Yes 1{capsu Take 1 Cap [facility] e magnesium 2-09 le} by mouth ity of (NEXIUM 15:56: daily. [place] 24HR) 22.3 37 Medical mg CpDR Branch Melatonin 5 2016-0 Yes 4mg Take 4-8 Un yazmin mg tablet 2-09 mg by ity of 15:56: mouth at [place] 37 bedtime as Medical needed. Branch cetirizine 2016-0 Yes 10mg Take 10 mg U nivers (ZYRTEC) 10 2-09 by mouth ity of mg tablet 15:56: at bedtime [place] 37 as needed Medical for Branch Allergies. diphenhydrA 2016-0 Yes 25mg Take 25-50 [facility] MINE 2-09 mg by ity of (BENADRYL) 15:56: mouth at [place] 25 mg 37 bedtime as Medical tablet needed for Branch Sleep. esomeprazol 2016-0 Yes 1{capsu Take 1 Cap [facility] e magnesium 2-09 le} by mouth ity of (NEXIUM 15:56: daily. [place] 24HR) 22.3 37 Medical mg CpDR Branch Melatonin 5 2015- Yes 4mg Take 4-8 Un [facility]azmin mg tablet 2-09 mg by ity of 15:56: mouth at [place] 37 bedtime as Medical needed. Branch cetirizine Yes 10mg Take 10 mg U nivers (ZYRTEC) 10 2-09 by mouth ity of mg tablet 15:56: at bedtime [place] 37 as needed Medical for Branch Allergies. diphenhydrA 2015-0 Yes 25mg Take 25-50 [facility] MINE 2-09 mg by ity of (BENADRYL) 15:56: mouth at [place] 25 mg 37 bedtime as Medical tablet needed for Branch Sleep. esomeprazol 2016-0 Yes 1{capsu Take 1 Cap [facility] e magnesium 2-09 le} by mouth ity of (NEXIUM 15:56: daily. [place] 24HR) 22.3 37 Medical mg CpDR Branch Melatonin 5 2015-0 Yes 4mg Take 4-8 Un [facility]min mg tablet 2-09 mg by ity of 15:56: mouth at [place] 37 bedtime as Medical needed. Branch cetirizine 2015-0 Yes 10mg Take 10 mg U nivers (ZYRTEC) 10 2-09 by mouth ity of mg tablet 15:56: at bedtime [place] 37 as needed Medical for Branch Allergies. diphenhydrA 2016-0 Yes 25mg Take 25-50 [facility] MINE 2-09 mg by ity of (BENADRYL) 15:56: mouth at [place] 25 mg 37 bedtime as Medical tablet needed for Branch Sleep. esomeprazol 2016- Yes 1{capsu Take 1 Cap [facility] e magnesium 2-09 le} by mouth ity of (NEXIUM 15:56: daily. [place] 24HR) 22.3 37 Medical mg CpDR Branch Melatonin 5 2015- Yes 4mg Take 4-8 Un [facility]azmin mg tablet 2-09 mg by ity of 15:56: mouth at [place] 37 bedtime as Medical needed. Branch cetirizine Yes 10mg Take 10 mg U nivers (ZYRTEC) 10 2-09 by mouth ity of mg tablet 15:56: at bedtime [place] 37 as needed Medical for Branch Allergies. diphenhydrA Yes 25mg Take 25-50 [facility] MINE 2-09 mg by ity of (BENADRYL) 15:56: mouth at [place] 25 mg 37 bedtime as Medical tablet needed for Branch Sleep. esomeprazol Yes 1{capsu Take 1 Cap [facility] e magnesium 2-09 le} by mouth ity of (NEXIUM 15:56: daily. [place] 24HR) 22.3 37 Medical mg CpDR Branch Melatonin 5 Yes 4mg Take 4-8 Un [facility]azmin mg tablet 2-09 mg by ity of 15:56: mouth at [place] 37 bedtime as Medical needed. Branch cetirizine Yes 10mg Take 10 mg U nivers (ZYRTEC) 10 2-09 by mouth ity of mg tablet 15:56: at bedtime [place] 37 as needed Medical for Branch Allergies. diphenhydrA 0 Yes 25mg Take 25-50 [facility] MINE 2-09 mg by ity of (BENADRYL) 15:56: mouth at [place] 25 mg 37 bedtime as Medical tablet needed for Branch Sleep. esomeprazol 2016-0 Yes 1{capsu Take 1 Cap [facility] e magnesium 2-09 le} by mouth ity of (NEXIUM 15:56: daily. [place] 24HR) 22.3 37 Medical mg CpDR Branch Melatonin 5 2015- Yes 4mg Take 4-8 Un [facility]azmin mg tablet 2-09 mg by ity of 15:56: mouth at [place] 37 bedtime as Medical needed. Branch cetirizine Yes 10mg Take 10 mg U nivers (ZYRTEC) 10 2-09 by mouth ity of mg tablet 15:56: at bedtime [place] 37 as needed Medical for Branch Allergies. diphenhydrA 2016- Yes 25mg Take 25-50 [facility] MINE 2-09 mg by ity of (BENADRYL) 15:56: mouth at [place] 25 mg 37 bedtime as Medical tablet needed for Branch Sleep. esomeprazol 2016-0 Yes 1{capsu Take 1 Cap [facility] e magnesium 2-09 le} by mouth ity of (NEXIUM 15:56: daily. [place] 24HR) 22.3 37 Medical mg CpDR Branch Melatonin 5 2015-0 Yes 4mg Take 4-8 Un [facility]min mg tablet 2-09 mg by ity of 15:56: mouth at [place] 37 bedtime as Medical needed. Branch cetirizine Yes 10mg Take 10 mg U nivers (ZYRTEC) 10 2-09 by mouth ity of mg tablet 15:56: at bedtime [place] 37 as needed Medical for Branch Allergies. diphenhydrA Yes 25mg Take 25-50 [facility] MINE 2-09 mg by ity of (BENADRYL) 15:56: mouth at [place] 25 mg 37 bedtime as Medical tablet needed for Branch Sleep. GUAIFENESIN Yes 800mg Take 800 U nivers [place] ORAL 2-09 mg by ity of 15:38: mouth [place] 26 daily. Medical Branch GUAIFENESIN Yes 800mg Take 800 U nivers [place] ORAL 2-09 mg by ity of 15:38: mouth [place] 26 daily. Medical Branch GUAIFENESIN Yes 800mg Take 800 U nivers [place] ORAL 2-09 mg by ity of 15:38: mouth [place] 26 daily. Medical Branch GUAIFENESIN 0 Yes 800mg Take 800 U nivers [place] ORAL 2-09 mg by ity of 15:38: mouth [place] 26 daily. Medical Branch GUAIFENESIN 20160 Yes 800mg Take 800 U nivers [place] ORAL 2-09 mg by ity of 15:38: mouth [place] 26 daily. Medical Branch GUAIFENESIN 0 Yes 800mg Take 800 U nivers [place] ORAL 2-09 mg by ity of 15:38: mouth [place] 26 daily. [facility] Yes 800mg Take 800 U nivers [place] ORAL 2-09 mg by ity of 15:38: mouth [place] 26 daily. [facility] Yes 800mg Take 800 U nivers [place] ORAL 2-09 mg by ity of 15:38: mouth [place] 26 daily. [facility] Yes 800mg Take 800 U nivers [place] ORAL 2-09 mg by ity of 15:38: mouth [place] 26 daily. [facility] Yes 800mg Take 800 U nivers [place] ORAL 2-09 mg by ity of 15:38: mouth [place] 26 daily. [facility] Yes 800mg Take 800 U nivers [place] ORAL 2-09 mg by ity of 15:38: mouth [place] 26 daily. [facility] Yes 800mg Take 800 U nivers [place] ORAL 2-09 mg by ity of 15:38: mouth [place] 26 daily. [facility] Yes 800mg Take 800 U nivers [place] ORAL 2-09 mg by ity of 15:38: mouth [place] 26 daily. [facility] Branch Levothyroxi Levothyroxi Yes Crissy 1 tablet Common ne Sodium ne Sodium [facility] morning on - [facility] an empty [facility] Cymbalta Cymbalta Yes [place] 1 capsule C ommon [facility] - [facility] Lisinopril- Lisinopril- Yes [place] 1 tablet Common Hydrochloro Hydrochloro [facility] thiazide thiazide - [facility] Maxalt Maxalt Yes [place]issy as Common [facility] directed [facility] Trazodone Trazodone Yes [place]issy 1 tablet Common HCl HCl [place] at bedtime [facility] it as needed - [facility] for sleep [facility] Cymbalta 60 Cymbalta 60 No 1{capsu BID Cymbalta MG MG le} 60 MG Maxalt 10 Maxalt 10 No Maxalt 10 MG MG MG Naltrexone Naltrexone No Naltrexone predniSONE predniSONE No QD predniSONE 20 MG 20 MG 20 MG traZODone traZODone No QD traZODone HCl 50 MG HCl 50 MG HCl 50 MG Fluconazole Fluconazole No 1{table Fluconazol 150 MG 150 MG t} e 150 MG Topiramate Topiramate No Topiramate 50 MG 50 MG 50 MG Lisinopril- Lisinopril- No 1{table QD Lisinopril hydroCHLORO hydroCHLORO t} -hydroCHLO thiazide thiazide ROthiazide 20-12.5 MG 20-12.5 MG 20-12.5 MG Levothyroxi Levothyroxi No QD Levothyrox ne Sodium ne Sodium ine Sodium 150 MCG 150 MCG 150 MCG Cymbalta 60 Cymbalta 60 No 1{capsu BID Cymbalta MG MG le} 60 MG Maxalt 10 Maxalt 10 No Maxalt 10 MG MG MG Naltrexone Naltrexone No Naltrexone predniSONE predniSONE No QD predniSONE 20 MG 20 MG 20 MG traZODone traZODone No QD traZODone HCl 50 MG HCl 50 MG HCl 50 MG Fluconazole Fluconazole No 1{table Fluconazol 150 MG 150 MG t} e 150 MG Topiramate Topiramate No Topiramate 50 MG 50 MG 50 MG Lisinopril- Lisinopril- No 1{table QD Lisinopril hydroCHLORO hydroCHLORO t} -hydroCHLO thiazide thiazide ROthiazide 20-12.5 MG 20-12.5 MG 20-12.5 MG Levothyroxi Levothyroxi No QD Levothyrox ne Sodium ne Sodium ine Sodium 150 MCG 150 MCG 150 MCG Cymbalta 60 Cymbalta 60 No 1{capsu BID Cymbalta MG MG le} 60 MG Maxalt 10 Maxalt 10 No Maxalt 10 MG MG MG Naltrexone Naltrexone No Naltrexone predniSONE predniSONE No QD predniSONE 20 MG 20 MG 20 MG traZODone traZODone No QD traZODone HCl 50 MG HCl 50 MG HCl 50 MG Fluconazole Fluconazole No 1{table Fluconazol 150 MG 150 MG t} e 150 MG Topiramate Topiramate No Topiramate 50 MG 50 MG 50 MG Lisinopril- Lisinopril- No 1{table QD Lisinopril hydroCHLORO hydroCHLORO t} -hydroCHLO thiazide thiazide ROthiazide 20-12.5 MG 20-12.5 MG 20-12.5 MG Levothyroxi Levothyroxi No QD Levothyrox ne Sodium ne Sodium ine Sodium 150 MCG 150 MCG 150 MCG Cymbalta 60 Cymbalta 60 No 1{capsu BID Cymbalta MG MG le} 60 MG Maxalt 10 Maxalt 10 No Maxalt 10 MG MG MG Naltrexone Naltrexone No Naltrexone predniSONE predniSONE No QD predniSONE 20 MG 20 MG 20 MG traZODone traZODone No QD traZODone HCl 50 MG HCl 50 MG HCl 50 MG Fluconazole Fluconazole No 1{table Fluconazol 150 MG 150 MG t} e 150 MG Topiramate Topiramate No Topiramate 50 MG 50 MG 50 MG Lisinopril- Lisinopril- No 1{table QD Lisinopril hydroCHLORO hydroCHLORO t} -hydroCHLO thiazide thiazide ROthiazide 20-12.5 MG 20-12.5 MG 20-12.5 MG Levothyroxi Levothyroxi No QD Levothyrox ne Sodium ne Sodium ine Sodium 150 MCG 150 MCG 150 MCG Levothyroxi Levothyroxi No QD Levothyrox ne Sodium ne Sodium ine Sodium 150 MCG 150 MCG 150 MCG Naltrexone Naltrexone No Naltrexone Maxalt 10 Maxalt 10 No Maxalt 10 MG MG MG Lisinopril- Lisinopril- No 1{table QD Lisinopril hydroCHLORO hydroCHLORO t} -hydroCHLO thiazide thiazide ROthiazide 10-12.5 MG 10-12.5 MG 10-12.5 MG Topiramate Topiramate No Topiramate 50 MG 50 MG 50 MG Levothyroxi Levothyroxi No QD Levothyrox ne Sodium ne Sodium ine Sodium 150 MCG 150 MCG 150 MCG Cymbalta 60 Cymbalta 60 No 1{capsu BID Cymbalta MG MG le} 60 MG Lisinopril- Lisinopril- No 1{table QD Lisinopril hydroCHLORO hydroCHLORO t} -hydroCHLO thiazide thiazide ROthiazide 20-12.5 MG 20-12.5 MG 20-12.5 MG predniSONE predniSONE No QD predniSONE 20 MG 20 MG 20 MG Fluconazole Fluconazole No 1{table Fluconazol 150 MG 150 MG t} e 150 MG traZODone traZODone No QD traZODone HCl 50 MG HCl 50 MG HCl 50 MG Lisinopril- Lisinopril- No 1{table QD Lisinopril hydroCHLORO hydroCHLORO t} -hydroCHLO thiazide thiazide ROthiazide 20-12.5 MG 20-12.5 MG 20-12.5 MG predniSONE predniSONE No QD predniSONE 20 MG 20 MG 20 MG Maxalt 10 Maxalt 10 No Maxalt 10 MG MG MG Naltrexone Naltrexone No Naltrexone Cymbalta 60 Cymbalta 60 No 1{capsu BID Cymbalta MG MG le} 60 MG Levothyroxi Levothyroxi No QD Levothyrox ne Sodium ne Sodium ine Sodium 150 MCG 150 MCG 150 MCG Topiramate Topiramate No Topiramate 50 MG 50 MG 50 MG Fluconazole Fluconazole No 1{table Fluconazol 150 MG 150 MG t} e 150 MG traZODone traZODone No QD traZODone HCl 50 MG HCl 50 MG HCl 50 MG Lisinopril- Lisinopril- No 1{table QD Lisinopril hydroCHLORO hydroCHLORO t} -hydroCHLO thiazide thiazide ROthiazide 20-12.5 MG 20-12.5 MG 20-12.5 MG predniSONE predniSONE No QD predniSONE 20 MG 20 MG 20 MG Maxalt 10 Maxalt 10 No Maxalt 10 MG MG MG Naltrexone Naltrexone No Naltrexone Cymbalta 60 Cymbalta 60 No 1{capsu BID Cymbalta MG MG le} 60 MG Levothyroxi Levothyroxi No QD Levothyrox ne Sodium ne Sodium ine Sodium 150 MCG 150 MCG 150 MCG Topiramate Topiramate No Topiramate 50 MG 50 MG 50 MG Fluconazole Fluconazole No 1{table Fluconazol 150 MG 150 MG t} e 150 MG traZODone traZODone No QD traZODone HCl 50 MG HCl 50 MG HCl 50 MG Lisinopril- Lisinopril- No 1{table QD Lisinopril hydroCHLORO hydroCHLORO t} -hydroCHLO thiazide thiazide ROthiazide 20-12.5 MG 20-12.5 MG 20-12.5 MG predniSONE predniSONE No QD predniSONE 20 MG 20 MG 20 MG Maxalt 10 Maxalt 10 No Maxalt 10 MG MG MG Naltrexone Naltrexone No Naltrexone Cymbalta 60 Cymbalta 60 No 1{capsu BID Cymbalta MG MG le} 60 MG Levothyroxi Levothyroxi No QD Levothyrox ne Sodium ne Sodium ine Sodium 150 MCG 150 MCG 150 MCG Topiramate Topiramate No Topiramate 50 MG 50 MG 50 MG Fluconazole Fluconazole No 1{table Fluconazol 150 MG 150 MG t} e 150 MG traZODone traZODone No QD traZODone HCl 50 MG HCl 50 MG HCl 50 MG Cymbalta 60 Cymbalta 60 No 1{capsu BID Cymbalta MG MG le} 60 MG Maxalt 10 Maxalt 10 No Maxalt 10 MG MG MG Levothyroxi Levothyroxi No Levothyrox ne Sodium ne Sodium ine Sodium 150 MCG 150 MCG 150 MCG predniSONE predniSONE No QD predniSONE 20 MG 20 MG 20 MG traZODone traZODone No QD traZODone HCl 50 MG HCl 50 MG HCl 50 MG Fluconazole Fluconazole No 1{table Fluconazol 150 MG 150 MG t} e 150 MG Topiramate Topiramate No Topiramate 50 MG 50 MG 50 MG Lisinopril- Lisinopril- No 1{table QD Lisinopril hydroCHLORO hydroCHLORO t} -hydroCHLO thiazide thiazide ROthiazide 20-12.5 MG 20-12.5 MG 20-12.5 MG Naltrexone Naltrexone No Naltrexone Immunizations Ordered Filled Immunization Date Status Comments [facility] e Immunization Name Name Influenza Virus 2016-10-20 Completed [facility] 00[facility] [place] [facility] 6+ [facility] Influenza Virus 2016-10-20 Completed [facility] Vacc[facility] 00:00:00 [place] [facility] Multi-dose 6+ [facility] Influenza Virus 2016-10-20 Completed [facility] 00:00:00 [place] [facility] Multi-dose 6+ [place] [facility] Influenza Virus 2016-10-20 Completed [facility]it [facility] of Vacc[facility] 00:00:00 [place] [facility] Multi-dose 6+ [place] [facility] Influenza Virus 2016-10-20 Completed [facility] of [facility] 00:00:00 [place] [facility] Multi-dose 6+ [facility] Influenza Virus 2016-10-20 Completed [facility] 00:00:00 [place] [facility] Multi-dose 6+ [facility] Influenza Virus 2016-10-20 Completed [facility] of [facility] 00:00:00 [place] [facility] Multi-dose 6+ [facility] Branch Influenza Virus 2016-10-20 Completed [facility] of [facility] 00:00:00 [place] [facility] Multi-dose 6+ [facility] Influenza Virus 2016-10-20 Completed [facility] of [facility] 00:00:00 [place] [facility] Multi-dose 6+ MO Branch Influenza Virus 2016-10-20 Completed [facility]it [facility] of [facility] 00:00:00 [place] [facility] Multi-dose 6+ MO Branch Influenza Virus 2016-10-20 Completed [facility]it [facility] of Vaccine [facility] 00:00:00 [place] [facility] Multi-dose 6+ MO Branch Influenza Virus 2016-10-20 Completed [facility]it [facility] of Vaccine [facility] 00:00:00 [place] [facility] Multi-dose 6+ MO Branch Influenza Virus 2016-10-20 Completed [facility]it y of Vaccine [facility] 00:00:00 [place] [facility] Multi-dose 6+ [facility] Vital Signs Vital Name Observation Time Observation Value Comments Source height 2022-04-27 10:20:00 68 [in_i] [facility] weight 2022-04-27 10:20:00 195 [lb_av] [facility] temperature 2022-04-27 10:20:00 101 [degF] [facility] bmi 2022-04-27 10:20:00 29.65 kg/m2 [facility] Systolic blood 2021-09-15 19:12:00 132 mm[facility]Hg[facility] Diastolic blood 2021-09-15 19:12:00 79 mm[Hg] [facility] Heart rate 2021-09-15 19:12:00 97 /min [facility] temperature 2021-09-15 19:12:00 36.28 [facility] Respiratory rate 2021-09-15 19:12:00 16 /min [facility] height 2021-09-15 19:12:00 177.8 cm [facility] weight 2021-09-15 19:12:00 93[facility]895 [facility] BMI 2021-09-15 19:12:00 29.70 [facility]m2 [facility] height 2021-06-06 09:40:00 68.00 [in_i] [facility] weight 2021-06-06 09:40:00 200.6 [lb_av] [facility] bmi 2021-06-06 09:40:00 30.5 kg/m2 [facility] oximetry 2021-06-06 09:40:00 98 % [facility] blood pressure 2021-06-06 09:40:00 130 mm[Hg] [facility] systolic [facility] blood pressure 2021-06-06 09:40:00 64 mm[Hg] [facility] - diastolic [facility] Systolic blood 2019-12-01 18:05:00 125 mm[Hg] Univer sity of pressure [facility] Diastolic blood 2019-12-01 18:05:00 80 mm[Hg] Unive rsity of [facility] Heart rate 2019-12-01 18:05:00 87 /min Universi ty of [facility] Body temperature 2019-12-01 18:05:00 36 Joanna Univ ersity of [facility] Respiratory rate 2019-12-01 18:05:00 18 /min Univ ersity of [facility] Body height 2019-12-01 18:05:00 177.8 cm Universi ty of [facility] Body weight 2019-12-01 18:05:00 97.523 kg Universi ty of [facility] BMI 2019-12-01 18:05:00 30.85 kg/m2 Universi ty [facility] Oxygen saturation in 2019-12-01 18:05:00 97 /min University Arterial blood by [facility] Pulse oximetry Branch Systolic blood 2019-12-01 18:05:00 125 mm[Hg] Univer sity of pressure [facility] Diastolic blood 2019-12-01 18:05:00 80 mm[Hg] Unive rsity of pressure [facility] Heart rate 2019-12-01 18:05:00 87 /min Universi ty of [facility] Body temperature 2019-12-01 18:05:00 36 Joanna Univ ersity of [facility] Respiratory rate 2019-12-01 18:05:00 18 /min Univ ersity of [facility] Body height 2019-12-01 18:05:00 177.8 cm Universi ty of [facility] Body weight 2019-12-01 18:05:00 97.523 kg [facility]i ty of [facility] BMI 2019-12-01 18:05:00 30.85 kg/m2 [facility] Oxygen saturation in 2019-12-01 18:05:00 97 /min [facility] blood by [facility] Pulse oximetry Branch Procedures Procedure Date / Time Performed Performing Clinician [facility], FREE 2021-09-15 20:36:00 Shanita Quinn [facility] TSH 2021-09-15 20:36:00 Radha Counts include 234 beds at the [facility] T3 2021-09-15 20:36:00 Mae Counts include 234 beds at the [facility] CONSENT/REFUSAL FOR 2019-12-01 17:52:51 Doctor Unassigned, No [facility] DIAGNOSIS AND Name Medical Branch TREATMENT ASSIGNMENT OF BENEFITS 2019-12-01 17:52:38 Doctor Unassigned, No [facility] Medical Branch Encounters Start End Encounter Admission Attending Care Care Encounter Source Date/Time Date/Time Type Type Clinicians Facility Department ID 2022-06-02 Outpatient Burt, Na STLMLC STLMLC [id number] Common 10:52:01 [facility] 2022-05-25 Outpatient Burt, Na STLMLC STLMLC [id number] Common 15:12:02 [facility] 2022-05-22 Outpatient Walsh, STLMLC STLMLC [id number] Common 09:06:01 Avnee [facility] 2022-04-23 Outpatient Walsh, STLMLC STLMLC [id number] Common 09:05:00 Avnee [facility] 2021-10-08 Outpatient Walsh, STLMLC STLMLC [id number] Common 13:53:03 Avnee [id number] [facility] 2021-10-08 Outpatient Walsh, STLMLC STLMLC [id number] Common 13:27:08 Avnee 04895 [facility] 2021-10-08 Outpatient Walsh, STLMLC STLMLC [id number] Common 13:26:39 Avnee 84843 [facility] 2021-10-08 Outpatient Millender, STLMLC STLMLC [id number] 13:17:41 Crissy 43049 [facility] 2021-10-08 Outpatient Millender, STLMLC STLMLC [id number] Common 11:28:09 Crissy 79540 [facility] 2021-09-15 Outpatient RADHA, [facility] ER [id number] [place] 14:21:13 [facility] 2022-04-27 2022-04-27 OFFICE STLMLC STLMLC [id number] Co mmon 00:00:00 00:00:00 VISIT [facility] 2022-04-11 2022-04-11 (WEB) STLMLC STLMLC [id number] Co mmon 00:00:00 00:00:00 [facility] 2022-04-04 2022-04-04 (WEB) STLMLC STLMLC [id number] Co mmon 00:00:00 00:00:00 [facility] 2022-03-18 2022-03-18 (WEB) STLMLC STLMLC [id number] Co mmon 00:00:00 00:00:00 [facility] 2022-03-09 2022-03-09 (TEL) STLMLC STLMLC [id number] Co mmon 00:00:00 00:00:00 [facility] 2021-09-16 2021-09-16 Telephone Sendareli, UTP [id number] [place] 00:00:00 00:00:00 [facility] [id number] [facility] MEDICAL [id number] BUILDING [id number] 2021-09-15 2021-09-15 Office Sendareli, UTP [id number] [place] 13:30:00 14:21:37 Visit [id number] [id number] BUILDING [id number] 2021-07-01 2021-07-01 (TEL) STLMLC STLMLC [id number] Co mmon 00:00:00 00:00:00 [facility] 2021-06-11 2021-06-11 (TEL) STLMLC STLMLC [id number] Co mmon 00:00:00 00:00:00 [facility] 2021-06-08 2021-06-08 (TEL) STLMLC STLMLC [id number] Co mmon 00:00:00 00:00:00 [facility] 2021-06-06 2021-06-06 OFFICE STLMLC STLMLC [id number] Co mmon 00:00:00 00:00:00 VISIT EST Spir it PT LEVEL 3 [facility] 2021-04-14 2021-04-14 Outpatient STLMLC STLMLC [id number] Common 00:00:00 00:00:00 [facility] 2021-04-14 2021-04-14 Outpatient STLMLC STLMLC [id number] Common 00:00:00 00:00:00 [facility] 2021-04-09 2021-04-09 Outpatient STLMLC STLMLC [id number] Common 00:00:00 00:00:00 [facility] 2021-03-28 2021-03-28 Outpatient STLMLC STLMLC [id number] Common 00:00:00 00:00:00 [facility] 2020-03-06 2020-03-06 [id number] Common 10:20:00 10:20:00 [facility] 2020-02-26 2020-02-26 Patient Stubbers, [facility] [id number] 00:00:00 00:00:00 Secure Msg Maame PRIMARY [id number] CARE [id number] LIONEL [id number] 2020-02-26 2020-02-26 Refill Doctor [facility] [id number] 00:00:00 00:00:00 Unassigned, PRIMARY [id number] [place] CARE 4.2.7.2.686 PAVILLION [id number] [facility] 2020-02-26 2020-02-26 Patient [place]ub[place], [place] [id number] [facility] 00:00:00 00:00:00 Secure Msg Isabel PRIMARY [id number] [place] of [place] [id number] [id number] Il dical [address] [place] 2020-02-26 2020-02-26 Refill Doctor [facility] [id number] Univers 00:00:00 00:00:00 Unassigned, PRIMARY [id number] ity of [place] 4.2.7.2.[place] [id number] Il dicde 042 [place] 2020-01-24 2020-01-24 Refill Doctor [facility] [id number] 00:00:00 00:00:00 Unassigned, PRIMARY [id number] [place] CARE [id number] PAVILLION [id number] [facility] 2020-01-24 2020-01-24 Refill Doctor [facility] [id number] Univers 00:00:00 00:00:00 Unassigned, PRIMARY [id number] ity of [place] [id number] [id number] Il dical 042 [place] 2019-12-05 2019-12-05 [facility] [id number] 00:00:00 00:00:00 [place] PRIMARY [id number] CARE 4.2.7.2.686 PAVILLION [id number] [facility] 2019-12-05 2019-12-05 [facility] [id number] [facility] 00:00:00 00:00:00 [place] PRIMARY [id number] it [id number] [id number] [address] 2019-12-01 2019-12-01 Urgent [facility], [facility] [id number] 12:52:36 13:07:36 Care Pcp PRIMARY [id number] Assessment CARE [id number] PAVILLION [id number] 2019-12-01 2019-12-01 Urgent Clinic, [facility] Pcp Assessment [facility] [id number] Univers 12:52:36 13:07:36 Care Unknown, Attending PRIMARY [id number] ity of Caden Deleon [facility] 4.2.7.2.686 [facility] [id number] Il dical 042 Branch 2019-12-01 2019-12-01 Outpatient R UNKNOWN, [facility] [id number] Univers 13:00:00 13:00:00 ATTENDING ity of [facility] 2019-12-01 2019-12-01 Orders Doctor CHAPO [id number] Univers 00:00:00 00:00:00 Only Unassigned, CRIS [id number] ity of [place] [facility] [id number] [facility] 009 Branch 2019-11-28 2019-11-28 Patient Sweet, [facility] [id number] Univers 00:00:00 00:00:00 Secure Msg Antoine PRIMARY [id number] [place] [id number] [id number] Il dical 390 Branch 2019-11-27 2019-11-27 Patient Doctor [facility] [id number] Univers 00:00:00 00:00:00 Secure Msg Unassigned, PRIMARY [id number] ity of [place] [id number] [id number] Il dical 390 Branch 2019-11-22 2019-11-22 Patient Doctor CHAPO [id number] Univers 00:00:00 00:00:00 Secure Msg Unassigned, CRIS [id number] ity of [place] [facility] [id number] [facility] 019 Branch 2019-05-19 2019-05-19 [facility] [id number] Univers 00:00:00 00:00:00 Wes PRIMARY [id number] it y of CARE [id number] Jasbir olivares PAVILLION [id number] Il dical 390 Branch 2019-05-01 2019-05-01 [facility] [id number] Univers 00:00:00 00:00:00 Wes PRIMARY [id number] it y of CARE [id number] Jasbir s PAVILLION [id number] Il dicde 390 Branch Results Test Description Test Time Test Comments Results Result Comments Source T4, free 2021-09-16 06:00:00 Test Item Value Reference Range Interpretation Comme nts T4, FREE (test code = 3024-7) 1.1 ng/dL 0.8-1.8 RAC (test code = RAC) Performing Organization Information: ? ?Site ID: [id number] ? ?Name: [employer] [facility] ? ?Address: [address] [place] [address] ? ?Director: REENA GIBBS MD [facility] [id number] 06:00:00 Test Item Value Reference Range Interpretation Comments TSH (test code = See_Comment L [Automated 3016-3) message] The system which generated this result transmitted reference range : 0.40 - 4.50 mIU/L. The reference range was not used to interpret this result as normal/abnormal . RAC (test code = Performing RAC) Organization Information: ? ?Site ID: RGA ? ?Name: [employer] [facility] ? ?Address: [address] [place] [address] ? ?Director: REENA GIBBS MD Lab Interpretation Abnormal (test code = 72546-8) [place] [id number] 06:00:00 Test Item Value Reference Range Interpretation Comments T3, TOTAL (test 87 ng/dL 76-181 code = 3053-6) RAC (test code = Performing Organization RAC) Information: ? ?Site ID: RGA ? ?Name: [employer] [facility] ? ?Address: [address] [place] [id number] ? ?Director: REENA GIBBS MD [facility]
[2022-06-29] MEDS ORDERED: MORPHINE 4 MG/ML SYR ONE (21:36)
[2022-06-29 21:59] LABS: Absolute Lymphocytes (CBC) 2.6 K/uL (0.7-4.9); Hematocrit 38.7 % (36.0-45.0); Lymphocytes % 18.3 % (15.3-44.8); MCV 88.3 fL (80-100); MPV 7.2 fL (7.6-11.3); RBC Red Blood Cell Count 4.38 M/uL (3.86-4.86)
[2022-06-29 22:18] LABS: Albumin 3.5 g/dL (3.4-5.0); Bilirubin Total 0.2 mg/dL (0.2-1.0); Potassium 3.7 mmol/L (3.5-5.1); Protein, Total 7.6 g/dL (6.4-8.2)
--- NOTE | 2022-06-29 22:19 | RAD REPORT ---
EXAM DESCRIPTION: CTAbdomen Pelvis W Contrast - 06/29/2022 10:08 pm CLINICAL HISTORY: Abdominal pain. recent colonoscopy, polyp removed, worsening abd pain COMPARISON: No comparisons TECHNIQUE: Biphasic CT imaging of the abdomen and pelvis was performed with 100 ml non-ionic IV cont rast. All CT scans are performed using dose optimization technique as appropriate and may include automated exposure control or mA/KV adjustment according to patient size. FINDINGS: The lung bases are clear. The liver, spleen, pancreas, adrenal glands and kidneys are within normal limits. No bowel obstruction, free air, free fluid or abscess. There is slight reticulation of the fat adjace nt to the inferior ascending colon. The appendix is normal. No evidence of significant lymphadenopat hy. No suspicious bony findings. IMPRESSION: Slight pericolonic inflammation seen adjacent to inferior ascending colon. Otherwise, ne gative study.
--- NOTE | 2022-06-29 22:38 | ER ---
Nurse's Notes [facility] Name: Maddie Garcia Age: 61 yrs Sex: Female : 1960 Arrival Date: 06/29/2022 Time: 18:49 Bed 6 Private MD: Diagnosis: Abdominal pain, unspecified;Post polypectomy inflammation of colon Presentation: 06/29 19:36 Chief complaint: Patient states: I had a colonoscopy today and they removed a large kd3 polyp and I was fine. but about two hours ago my stomach pain has been getting worse and worse. Its in the right side. my doctor told me to come to the ER. Coronavirus screen: Vaccine status: Patient reports receiving the 2nd dose of the covid vaccine. Ebola Screen: No symptoms or risks identified at this time. Initial Sepsis Screen: Does the patient meet any 2 criteria? No. Patient's initial sepsis screen is negative. Does the patient have a suspected source of infection? No. Patient's initial sepsis screen is negative. Risk Assessment: Do you want to hurt yourself or someone else? Patient reports no desire to harm self or others. Onset of symptoms was June 29, 2022. 19:36 Method Of Arrival: Ambulatory kd3 19:36 Acuity: PLOO 3 kd3 Triage Assessment: 19:39 General: Appears uncomfortable, Behavior is calm, cooperative. Pain: Complains of pain kd3 in right upper quadrant and right lower quadrant. GI: Reports lower abdominal pain. Historical: - PMHx: 19:39 Hypertension; Hypothyroidism; Rheumatoid Arthritis; kd3 - Immunization history:: Adult Immunizations up to date. - Social history:: Smoking status: unknown. - Family history:: not pertinent. - Hospitalizations: : No recent hospitalization is reported. Screenin:40 Abuse screen: Denies threats or abuse. Denies injuries from another. Nutritional kd3 screening: No deficits noted. Tuberculosis screening: No symptoms or risk factors identified. Fall Risk None identified. Assessment: 21:50 General: Appears uncomfortable, Behavior is cooperative, restless. Pain: Complains of as6 pain in right upper quadrant Pain radiates to right lower quadrant Quality of pain is described as crampy, sharp, Aggravated by increased activity. Neuro: Level of Consciousness is awake, alert. Respiratory: Respiratory effort is even, unlabored. GI: Bowel sounds present X 4 quads. Abd is soft X 4 quads Abdomen is tender to palpation in right lower quadrant and right upper quadrant Reports lower abdominal pain, upper abdominal pain, diarrhea. Vital Signs: 19:36 BP 141 / 90; Pulse 106; Resp 17; Temp 99.8(O); Pulse Ox 96% on R/A; Weight 98.43 kg; kd3 Height 5 ft. 10 in. (177.80 cm); Pain 9/10; 21:51 BP 112 / 70; Pulse 94; Resp 16 S; Temp 99.0(O); Pulse Ox 97% on R/A; as6 22:40 BP 119 / 69; Pulse 88; Resp 18 S; Pulse Ox 99% on R/A; as6 19:36 Body Mass Index 31.14 (98.43 kg, 177.80 cm) kd3 ED Course: 18:49 Patient arrived in ED. as 19:39 Triage completed. kd3 19:40 Patient has correct armband on for positive identification. kd3 19:40 Arm band placed on right wrist. kd3 19:43 Nj Segovia MD is Attending Physician. rn 21:23 Dallas Patel RN is Primary Nurse. as6 21:50 CBC with Diff Sent. as6 21:50 CMP Sent. as6 21:50 Lipase Sent. as6 21:50 Inserted saline lock: 20 gauge in right antecubital area, using aseptic technique. as6 Blood collected. 22:10 CT Abd/Pelvis - IV Contrast Only In Process Unspecified. EDMS 22:43 No provider procedures requiring assistance completed. IV discontinued, intact, tw5 bleeding controlled, No redness/swelling at site. Pressure dressing applied. Administered Medications: 21:50 Drug: morphine 4 mg Route: IVP; Infused Over: 4 mins; Site: right antecubital; as6 22:41 Follow up: Response: No adverse reaction; RASS: Alert and Calm (0) tw5 22:44 Follow up: Response: No adverse reaction; Pain is decreased as6 22:41 Drug: HYDROcodone-acetaminophen 5 mg-325 mg 1 tabs Route: PO; tw5 22:41 Follow up: Response: No adverse reaction; Medication administered at discharge.; RASS: tw5 Alert and Calm (0) Medication: 22:43 VIS not applicable for this client. tw5 Outcome: 22:38 Discharge ordered by . rn 22:43 Discharged to home ambulatory, with family. tw5 22:43 Condition: good 22:43 Discharge instructions given to patient, Instructed on discharge instructions, follow up and referral plans. Demonstrated understanding of instructions, follow-up care, medications, Prescriptions given X 1. 22:43 Patient left the ED. tw5 Signatures: Dispatcher [employer] Arabella Robison as Nj Segovia MD MD rn Wood, Tiffany tw5 Dallas Patel RN RN as6 Kinsey Sood RN RN kd3
--- NOTE | 2022-06-29 22:38 | EDPHYS ---
Physician Documentation [facility] Name: Maddie Garcia Age: 61 yrs Sex: Female : 1960 Arrival Date: 06/29/2022 Time: 18:49 Bed 6 Private MD: ED Physician Nj Segovia HPI: 06/29 20:53 This 61 yrs old Female presents to ER via Ambulatory with complaints of Abdominal Pain rn - colonoscopy w/polyp removal today. 20:53 The patient presents with abdominal pain in the right upper quadrant, right lower rn quadrant. Onset: The symptoms/episode began/occurred today. The symptoms do not radiate. Associated signs and symptoms: Pertinent negatives: anorexia, blood in stools, chest pain, fever, shortness of breath, vomiting, vomiting blood. The symptoms are described as sharp, stabbing. Modifying factors: The symptoms are alleviated by nothing, the symptoms are aggravated by movement, touching the area. Severity of pain: At its worst the pain was moderate in the emergency department the pain is unchanged. The patient has not experienced similar symptoms in the past. The patient has been recently seen by a physician:. Pt reports just had colonoscopy with polyp removal earlier this AM, felt fine for a while but then began to have right sided abd pain. No fever/vomiting/blood in stool. . Historical: - PMHx: 19:39 Hypertension; Hypothyroidism; Rheumatoid Arthritis; kd3 - Immunization history:: Adult Immunizations up to date. - Social history:: Smoking status: unknown. - Family history:: not pertinent. - Hospitalizations: : No recent hospitalization is reported. ROS: 20:53 Constitutional: Negative for fever, chills, and weight loss, Eyes: Negative for injury, rn pain, redness, and discharge, Neck: Negative for injury, pain, and swelling, Cardiovascular: Negative for chest pain, palpitations, and edema, Respiratory: Negative for shortness of breath, cough, wheezing, and pleuritic chest pain, Abdomen/GI: + abd pain Back: Negative for injury and pain, MS/Extremity: Negative for injury and deformity, Skin: Negative for injury, rash, and discoloration, Neuro: Negative for headache, weakness, numbness, tingling, and seizure. Exam: 20:53 Constitutional: This is a well developed, well nourished patient who is awake, alert, rn appears uncomfortable Head/Face: Normocephalic, atraumatic. Cardiovascular: Tachycardic, regular. No pulse deficits. Respiratory: No increased work of breathing, no retractions or nasal flaring. Abdomen/GI: soft, + right sided abd tenderness, no peritoneal signs, no swelling Skin: Warm, dry MS/ Extremity: Pulses equal, no cyanosis. Neuro: Awake and alert, GCS 15 Vital Signs: 19:36 BP 141 / 90; Pulse 106; Resp 17; Temp 99.8(O); Pulse Ox 96% on R/A; Weight 98.43 kg; kd3 Height 5 ft. 10 in. (177.80 cm); Pain 9/10; 21:51 BP 112 / 70; Pulse 94; Resp 16 S; Temp 99.0(O); Pulse Ox 97% on R/A; as6 22:40 BP 119 / 69; Pulse 88; Resp 18 S; Pulse Ox 99% on R/A; as6 19:36 Body Mass Index 31.14 (98.43 kg, 177.80 cm) kd3 MDM: 19:47 Patient medically screened. rn 22:35 Differential diagnosis: bowel obstruction, post colonoscopy inflammation, pain from rn polypectomy. Bowel perforation. Data reviewed: vital signs, nurses notes, lab test result(s), radiologic studies, CT scan, and as a result, I will discharge patient. Counseling: I had a detailed discussion with the patient and/or guardian regarding: the historical points, exam findings, and any diagnostic results supporting the discharge/admit diagnosis, lab results, radiology results, the need for outpatient follow up, to return to the emergency department if symptoms worsen or persist or if there are any questions or concerns that arise at home. Response to treatment: the patient's symptoms have markedly improved after treatment, and as a result, I will discharge patient. Special discussion: Based on the patient's Hx, exam, and Dx evaluation, there is no indication for emergent surgery or inpatient Tx. It is understood by the patient/guardian that if the Sx's persist or worsen they need to return immediately for re-evaluation. I discussed with the patient/guardian in detail that at this point there is no indication for admission to the hospital. It is understood, however, that if the symptoms persist or worsen the patient needs to return immediately for re-evaluation. Based on the history and exam findings, there is no indication for further emergent testing or inpatient evaluation. I discussed with the patient/guardian the need to see the sports physical therapist for further evaluation of the symptoms. ED course: Ct without perforation, + local inflammation, likely from polypectomy, already on abx, will add pain meds and given return precautions.. 06/29 19:44 Order name: CBC with Diff; Complete Time: 22:21 rn 06/29 19:44 Order name: CMP; Complete Time: : rn 06/29 19:44 Order name: Lipase; Complete Time: 22:21 rn 06/29 19:44 Order name: CT Abd/Pelvis - IV Contrast Only; Complete Time: : rn 06/29 19:44 Order name: IV Saline Lock; Complete Time: 21:50 rn 06/29 19:44 Order name: Labs collected and sent; Complete Time: 21:50 rn Administered Medications: 21:50 Drug: morphine 4 mg Route: IVP; Infused Over: 4 mins; Site: right antecubital; as6 22:41 Follow up: Response: No adverse reaction; RASS: Alert and Calm (0) tw5 22:44 Follow up: Response: No adverse reaction; Pain is decreased as6 22:41 Drug: HYDROcodone-acetaminophen 5 mg-325 mg 1 tabs Route: PO; tw5 22:41 Follow up: Response: No adverse reaction; Medication administered at discharge.; RASS: tw5 Alert and Calm (0) Disposition Summary: 06/29/22 22:38 Discharge Ordered Location: Home rn Problem: new rn Symptoms: have improved rn Condition: Stable rn Diagnosis - Abdominal pain, unspecified rn - Post polypectomy inflammation of colon rn Followup: rn - With: Private Physician - When: As needed - Reason: Recheck today's complaints, Re-evaluation by your physician Discharge Instructions: - Discharge Summary Sheet rn - Abdominal Pain, Adult rn - Colonoscopy, Adult, Care After rn Forms: - Medication Reconciliation Form rn - Thank You Letter rn - Antibiotic overnight babysitter - Prescription Opioid Use rn Prescriptions: - Tramadol 50 mg Oral Tablet - take 1 tablet by ORAL route every 8 hours as needed; 12 tablet; Refills: 0, rn Product Selection Permitted Signatures: Dispatcher [employer] EDNj Chappell MD MD rn Wood, Tiffany tw5 Dallas Patel, RN RN as6 Kinsey Sood, RN RN kd3
[2022-06-29] MEDS ORDERED: HYDROCODONE/APAP 5/325 MG TAB ONE (22:42)
[2022-06-29 23:06] VITALS: TEMP 99
[2022-06-29 23:12] VITALS: BP 119/69; O2SAT 99
== END 2022-06-29 22:43 | disposition home or self-care (01) ==
LOC: ER 18:48
DX: R10.11 Right upper quadrant pain (principal); G89.18 Other acute postprocedural pain; Z86.010 Personal history of colon polyps; Z98.890 Other specified postprocedural states
CPT/HCPCS: 85025; 36415; 82565; 83690; 80053; 74177; 96374; 99284; Q9967

== ENCOUNTER 2024-01-07 11:17 | Emergency (ER) | payer OTHER ==
--- OUTSIDE RECORDS SUMMARY | 2024-01-07 11:22 | XMS REPORT | Continuity of Care Document ---
Author Name Unknown Address [address] [place] [address] [facility] thconnect Address 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 Name Role Phone Unknown, Physician Primary Care Physician Richa Ochoa Attending Clinician Unavailable Marly SCHAFFER Attending Clinician Unavailable Marc Walsh Attending Clinician Unavailable Crissy Cordoba Attending Clinician Unavailable SHANITA GARCIA Attending Clinician Unavailable Maame Franklin Attending Clinician [phone] Doctor Unassigned, [place] Attending Clinician U Caden Gilliland MD Attending Clinician [phone] [facility], [facility] Pcp Assessment Attending Clinician U anup Unknown, Attending Attending Clinician Unavailab alyx UNKNOWN, ATTENDING Attending Clinician Unavailab Antoine Thompson DO Attending Clinician [phone] Wes Lopez DO Attending Clinician [phone] Payers Payer Name Policy Type Policy Number Effective Date Expirati on Date Source [facility]AY[facility]ATNA[facility]aylor [facility] [id number] 2021 00:00:00 Dora from [facility] [id number] 2021 00:00:00 [facility] Ambetter from [facility] [id number] 2021 00:00:00 [facility] Ambetter from [facility] [id number] 2021 00:00:00 [facility] Ambetter from [facility] [id number] 2021 00:00:00 [facility] Problems Condition Name Condition Details Condition Category Status Onset Date Resolution Date Last Treatment Date Treating Clinician Comments Source [id number] History of alcohol dependence Problem [facility] [id number] JONATHAN (generaliz ed anxiety disorder) Problem [facility] Hyperglyce adilia due to type 2 diabetes mellitus Type 2 diabetes mellitus with hyperglyce adilia, unspecifie d whether skilled nursing insulin use Problem [facility] Depression Depression , unspecifie d depression type Problem [facility] [id number] Insomnia, unspecifie d type Problem [facility] Migraine Migraine without status migrainosu s, not intractabl e, unspecifie d migraine type Problem [facility] Hyperlipid emia Hyperlipid emia, unspecifie d hyperlipid emia type Problem [facility] [id number] Acquired hypothyroi dism Problem [facility] [id number] Polyarthra lgia Problem [facility] Seasonal allergy Seasonal allergies Problem [facility] [id number] Essential hypertensi on Problem [facility] Thyroid disease Thyroid disease Problem [facility] [id number] Obesity (BMI 30-39.9) Problem [facility] Gastroesop hageal reflux disease GERD (gastroeso phageal reflux disease) Problem [facility] Hypertensi on Hypertensi on Problem [facility] Hypothyroi d Hypothyroi d Problem [facility] Alopecia Hair loss Problem [facility] Allergies, Adverse Reactions, Alerts Allergy Name Allergy Type Status Severity Reaction(s) Onset Date Inactive Date Treating Clinician Comments Source Lanolin Allergy to substanc e Active 2021-09 00:00: 00 Other reaction( s): vomiting [facility] Acetamin ophen Allergy to substanc e Active 03-11 00:00: 00 Other reaction( s): Nausea/Vo miting [facility] Hydrocod one Allergy to substanc e Active 03-11 00:00: 00 Other reaction( s): Nausea/Vo miting [facility] Hydrocod one-Acet aminophe n Propensi ty to adverse reaction s Active Nausea and/or Vomiting 03-27 00:00: 00 [facility] HYDROCOD ONE-ACET AMINOPHE N DRUG Active N/V 03-27 00:00: 00 [facility] Hydrocod one-Acet aminophe n Drug Allergy Active Nausea And Vomiting 03-27 00:00: 00 Other reaction( s): vomiting [facility] 4614 Drug allergy Active vomiting [facility] Social History Social Habit Start Date Stop Date Quantity Comments Source History of tobacco use Cigarette Smoker [facility] Sex Assigned At [facility] Exposure to SARS-CoV-2 (event) 2022-07-11 00:00:00 2022-07-21 10:04:00 Not sure [facility] Tobacco use and exposure 2022-07-21 00:00:00 2022-07-21 00:00:00 Smokeless tobacco non-user [facility] Alcohol intake 2022-07-21 00:00:00 2022-07-21 00:00:00 Ex-drinker (finding) [facility] Cigarettes smoked current (pack per day) - Reported 2019-12-01 00:00:00 2019-12-01 00:00:00 [facility] Cigarette pack-years 2019-12-01 00:00:00 2019-12-01 00:00:00 [facility] Alcohol Comment 2015-10-22 00:00:00 2015-10-22 00:00:00 hx of heavy alcohol use quit in 2013 [facility] Smoking Status Start Date Stop Date Source Ex-smoker 2022-07-21 00:00:00 2022-07-21 00:00:00 [facility] Medications Ordered Medication Name Filled Medication Name Start Date Stop Date Current Medication? Ordering Clinician Indication Dosage Frequency Signature (SIG) Comments Components Source Rosuvastati n Calcium 10 MG Rosuvastati n Calcium 10 MG 8-14 00:00: 00 No 1{table t} QD Rosuvastat in Calcium 10 MG metFORMIN (Glucophage ) 1000 MG tablet 2021-09 00:00: 00 07-22 05:59 :00 No [id number] 1000mg QD Take 1 tablet (1,000 mg total) by mouth 1 (one) time each day with breakfast. [facility] liothyronin e (Cytomel) 5 MCG tablet 2021-09 00:00: 00 07-22 05:59 :00 No [id number] 5ug QD Take 1 tablet (5 mcg total) by mouth 1 (one) time each day. [facility] Semaglutide -Weight Management (Wegovy) 0.25 MG/0.5ML solution auto-inject or 2021-09 00:00: 00 09-20 05:59 :00 No [id number] 2.5mg Inject 2.5 mg under the skin 1 (one) time per week. [facility] dexamethaso ne (Decadron) 1 MG tablet 09-16 00:00: 00 Yes [id number] Take 1 tablet when directed [facility] DULoxetine (Cymbalta) [address] capsule 2020-09 00:00: 00 Yes 120mg QD Take 120 mg by mouth 1 (one) time each day. [facility] hydrOXYzine pamoate (Vistaril) 25 MG capsule 2020-09 00:00: 00 Yes TAKE ONE (1) CAPSULE(S) BY MOUTH AT BEDTIME NEEDED. [facility] Azithromyci n 250 MG Azithromyci n 250 MG - 00:00: 00 06-11 00:00 :00 No QD Azithromyc in 250 MG atorvastati n (Lipitor) 40 MG tablet - 00:00: 00 Yes 40mg Take 40 mg by mouth every night. [facility] Aspirin Low Dose 81 MG EC tablet 30 00:00: 00 Yes 81mg QD Take 81 mg by mouth 1 (one) time each day. [facility] levothyroxi ne 175 mcg tablet 02-25 00:00: 00 Yes [id number] 175ug Take 1 tablet by mouth every morning. [facility] DULoxetine (CYMBALTA) 60 mg capsule 15 00:00: 00 Yes [id number] 120mg Take 2 capsules by mouth daily. [facility] DULoxetine (CYMBALTA) 60 mg capsule 14 00:00: 00 02-25 00:00 :00 No [id number] 120mg Take 2 capsules by mouth daily. [facility] fluticasone propionate 50 mcg/actuati on nasal spray 20 00:00: 00 Yes [id number] 2{spray } Use 2 Sprays in each nostril daily. [facility] levothyroxi ne 175 mcg tablet 11-30 00:00: 00 02-25 00:00 :00 No [id number] 175ug Take 1 tablet by mouth every morning. [facility] DULoxetine (CYMBALTA) 60 mg capsule 20 00:00: 00 01-23 00:00 :00 No [id number] 120mg Take 2 capsules by mouth daily. [facility] rizatriptan 10 mg tablet 11-27 14:42: 33 11-27 00:00 :00 No 10mg Take 10 mg by mouth every 2 (two) hours as needed for Migraine. May repeat in 2 hours if needed. No more than 2 per 24 hrs [facility] lisdexamfet amine (VYVANSE) 60 mg capsule 17 14:39: 16 11-27 00:00 :00 No 60mg Take 60 mg by mouth every morning. [facility] dextroamphe tamine-amph etamine (ADDERALL) 30 mg tablet 17 14:39: 10 11-27 00:00 :00 No 30mg Take 30 mg by mouth 2 (two) times daily. [facility] rizatriptan 10 mg disintegrat ing tablet 11-27 00:00: 00 Yes [id number] Take one by mouth every 2 hours prn headache. Max of 2 tablets per day [facility] DULoxetine (CYMBALTA) 60 mg capsule 11-27 00:00: 00 11-30 00:00 :00 No [id number] 120mg Take 2 capsules by mouth daily. [facility] levothyroxi ne 175 mcg tablet 11-27 00:00: 00 11-30 00:00 :00 No [id number] 175ug Take 1 tablet by mouth every morning. [facility] DULoxetine (CYMBALTA) 60 mg capsule 05-22 00:00: 11-27 00:00 :00 No [id number] 120mg Take 2 capsules by mouth daily. [facility] levothyroxi ne 175 mcg tablet 05-22 00:00: 11-27 00:00 :00 No [id number] 175ug Take 1 tablet by mouth every morning. [facility] rizatriptan 10 mg disintegrat ing tablet 11-08 00:00: 11-27 00:00 :00 No [id number] Take one by mouth every 2 hours prn headache. Max of 2 tablets per day [facility] DULoxetine (CYMBALTA) 60 mg capsule 11-08 00:00: 00 05-19 00:00 :00 No [id number] 120mg Take 2 capsules by mouth daily. [facility] levothyroxi ne 175 mcg tablet 11-08 00:00: 05-19 00:00 :00 No [id number] 175ug Take 1 tablet by mouth every morning. [facility] rizatriptan 10 mg tablet 04-05 21:23: 47 Yes 10mg Take 10 mg by mouth every 2 (two) hours as needed for Migraine. May repeat in 2 hours if needed. No more than 2 per 24 hrs [facility] topiramate 25 mg Cp24 04-05 21:22: 10 Yes 25mg Take 25 mg by mouth daily. [facility] vitamin C with ramón hips 1,000 mg tablet 10-22 15:56: 38 Yes 2000mg Take 2,000 mg by mouth daily. [facility] GLUC HCL/GLUC ACEVEDO/AC-ALP-D -GLUC (GLUCOSAMIN E COMPLEX ORAL) 10-22 15:56: 38 Yes 4g/d Take 4 g/day by mouth daily. [facility] naproxen sodium (ALEVE) 220 mg Cap 10-22 15:56: 38 Yes 220mg Take 220 mg by mouth 2 (two) times daily. [facility] aspirin 325 mg tablet 10-22 15:56: 38 Yes 650mg Take 650 mg by mouth every 6 (six) hours as needed for Pain (scale 1-3). [facility] CALCIUM CARB/MAGNES IUM CMB #10 (NGYUEN-MAG ORAL) 10-22 15:56: 38 Yes 1{tbl} Take 1 Tab by mouth daily. [facility] lisdexamfet amine (VYVANSE) 60 mg capsule 10-22 15:56: 38 Yes 60mg Take 60 mg by mouth every morning. [facility] dextroamphe tamine-amph etamine (ADDERALL) 30 mg tablet 10-22 15:56: 38 Yes 30mg Take 30 mg by mouth 2 (two) times daily. [facility] esomeprazol e magnesium (NEXIUM 24HR) 22.3 mg CpDR 10-22 15:56: 37 Yes 1{capsu le} Take 1 Cap by mouth daily. [facility] Melatonin 5 mg tablet 10-22 15:56: 37 Yes 4mg Take 4-8 mg by mouth at bedtime as needed. [facility] cetirizine (ZYRTEC) 10 mg tablet 10-22 15:56: 37 Yes 10mg Take 10 mg by mouth at bedtime as needed for Allergies. [facility] diphenhydrA MINE (BENADRYL) 25 mg tablet 10-22 15:56: 37 Yes 25mg Take 25-50 mg by mouth at bedtime as needed for Sleep. [facility] GUTISH LA ORAL 2015-0 10-22 15:38: 26 Yes 800mg Take 800 mg by mouth daily. [facility] Levothyroxi ne Sodium Levothyroxi ne Sodium Yes Crissy Millender 1 tablet in the morning on an empty stomach [facility] Cymbalta Cymbalta Yes Crissy Millender 1 capsule [facility] Lisinopril- Hydrochloro thiazide Lisinopril- Hydrochloro thiazide Yes Crissy Millender 1 tablet [facility] Maxalt Maxalt Yes Crissy Millender as directed [facility] Trazodone HCl Trazodone HCl Yes Crissy Millender 1 tablet at bedtime as needed for sleep [facility] Cymbalta 60 MG Cymbalta 60 MG No 1{capsu le} BID Cymbalta 60 MG Maxalt 10 MG Maxalt 10 MG No Maxalt 10 MG Naltrexone Naltrexone No Naltrexone predniSONE 20 MG predniSONE 20 MG No QD predniSONE 20 MG traZODone HCl 50 MG traZODone HCl 50 MG No QD traZODone HCl 50 MG Fluconazole 150 MG Fluconazole 150 MG No 1{table t} Fluconazol e 150 MG Topiramate 50 MG Topiramate 50 MG No Topiramate 50 MG Lisinopril- hydroCHLORO thiazide 20-12.5 MG Lisinopril- hydroCHLORO thiazide 20-12.5 MG No 1{table t} QD Lisinopril -hydroCHLO ROthiazide 20-12.5 MG Levothyroxi ne Sodium 150 MCG Levothyroxi ne Sodium 150 MCG No QD Levothyrox ine Sodium 150 MCG traZODone HCl 50 MG traZODone HCl 50 MG No QD traZODone HCl 50 MG Lisinopril- hydroCHLORO thiazide 20-12.5 MG Lisinopril- hydroCHLORO thiazide 20-12.5 MG No 1{table t} QD Lisinopril -hydroCHLO ROthiazide 20-12.5 MG traZODone HCl 50 MG traZODone HCl 50 MG No QD traZODone HCl 50 MG Lisinopril- hydroCHLORO thiazide 20-12.5 MG Lisinopril- hydroCHLORO thiazide 20-12.5 MG No 1{table t} QD Lisinopril -hydroCHLO ROthiazide 20-12.5 MG Cymbalta 60 MG Cymbalta 60 MG No 1{capsu le} BID Cymbalta 60 MG Maxalt 10 MG Maxalt 10 MG No Maxalt 10 MG Naltrexone Naltrexone No Naltrexone predniSONE 20 MG predniSONE 20 MG No QD predniSONE 20 MG traZODone HCl 50 MG traZODone HCl 50 MG No QD traZODone HCl 50 MG Fluconazole 150 MG Fluconazole 150 MG No 1{table t} Fluconazol e 150 MG Topiramate 50 MG Topiramate 50 MG No Topiramate 50 MG Lisinopril- hydroCHLORO thiazide 20-12.5 MG Lisinopril- hydroCHLORO thiazide 20-12.5 MG No 1{table t} QD Lisinopril -hydroCHLO ROthiazide 20-12.5 MG Levothyroxi ne Sodium 150 MCG Levothyroxi ne Sodium 150 MCG No QD Levothyrox ine Sodium 150 MCG Lisinopril- hydroCHLORO thiazide 20-12.5 MG Lisinopril- hydroCHLORO thiazide 20-12.5 MG No 1{table t} QD Lisinopril -hydroCHLO ROthiazide 20-12.5 MG traZODone HCl 50 MG traZODone HCl 50 MG No QD traZODone HCl 50 MG Fluconazole 150 MG Fluconazole 150 MG No 1{table t} Fluconazol e 150 MG predniSONE 20 MG predniSONE 20 MG No QD predniSONE 20 MG Maxalt 10 MG Maxalt 10 MG No Maxalt 10 MG metFORMIN HCl 1000 MG metFORMIN HCl 1000 MG No 1{table t_with_ a_meal} QD metFORMIN HCl 1000 MG Lisinopril- hydroCHLORO thiazide 20-12.5 MG Lisinopril- hydroCHLORO thiazide 20-12.5 MG No 1{table t} QD Lisinopril -hydroCHLO ROthiazide 20-12.5 MG Levothyroxi ne Sodium 137 MCG Levothyroxi ne Sodium 137 MCG No QD Levothyrox ine Sodium 137 MCG Topiramate 50 MG Topiramate 50 MG No Topiramate 50 MG Pantoprazol e Sodium 40 MG Pantoprazol e Sodium 40 MG No 1{table t} QD Pantoprazo le Sodium 40 MG Cymbalta 60 MG Cymbalta 60 MG No 1{capsu le} BID Cymbalta 60 MG Lisinopril- hydroCHLORO thiazide 10-12.5 MG Lisinopril- hydroCHLORO thiazide 10-12.5 MG No Lisinopril -hydroCHLO ROthiazide 10-12.5 MG traZODone HCl 50 MG traZODone HCl 50 MG No QD traZODone HCl 50 MG Naltrexone Naltrexone No Naltrexone Levothyroxi ne Sodium 150 MCG Levothyroxi ne Sodium 150 MCG No QD Levothyrox ine Sodium 150 MCG Fluconazole 150 MG Fluconazole 150 MG No 1{table t} Fluconazol e 150 MG predniSONE 20 MG predniSONE 20 MG No QD predniSONE 20 MG Maxalt 10 MG Maxalt 10 MG No Maxalt 10 MG metFORMIN HCl 1000 MG metFORMIN HCl 1000 MG No 1{table t_with_ a_meal} QD metFORMIN HCl 1000 MG Lisinopril- hydroCHLORO thiazide 20-12.5 MG Lisinopril- hydroCHLORO thiazide 20-12.5 MG No 1{table t} QD Lisinopril -hydroCHLO ROthiazide 20-12.5 MG Levothyroxi ne Sodium 137 MCG Levothyroxi ne Sodium 137 MCG No QD Levothyrox ine Sodium 137 MCG Topiramate 50 MG Topiramate 50 MG No Topiramate 50 MG Pantoprazol e Sodium 40 MG Pantoprazol e Sodium 40 MG No 1{table t} QD Pantoprazo le Sodium 40 MG Cymbalta 60 MG Cymbalta 60 MG No 1{capsu le} BID Cymbalta 60 MG Lisinopril- hydroCHLORO thiazide 10-12.5 MG Lisinopril- hydroCHLORO thiazide 10-12.5 MG No Lisinopril -hydroCHLO ROthiazide 10-12.5 MG traZODone HCl 50 MG traZODone HCl 50 MG No QD traZODone HCl 50 MG Naltrexone Naltrexone No Naltrexone Levothyroxi ne Sodium 150 MCG Levothyroxi ne Sodium 150 MCG No QD Levothyrox ine Sodium 150 MCG Fluconazole 150 MG Fluconazole 150 MG No 1{table t} Fluconazol e 150 MG predniSONE 20 MG predniSONE 20 MG No QD predniSONE 20 MG Maxalt 10 MG Maxalt 10 MG No Maxalt 10 MG metFORMIN HCl 1000 MG metFORMIN HCl 1000 MG No 1{table t_with_ a_meal} QD metFORMIN HCl 1000 MG Lisinopril- hydroCHLORO thiazide 20-12.5 MG Lisinopril- hydroCHLORO thiazide 20-12.5 MG No 1{table t} QD Lisinopril -hydroCHLO ROthiazide 20-12.5 MG Levothyroxi ne Sodium 137 MCG Levothyroxi ne Sodium 137 MCG No QD Levothyrox ine Sodium 137 MCG Topiramate 50 MG Topiramate 50 MG No Topiramate 50 MG Pantoprazol e Sodium 40 MG Pantoprazol e Sodium 40 MG No 1{table t} QD Pantoprazo le Sodium 40 MG Cymbalta 60 MG Cymbalta 60 MG No 1{capsu le} BID Cymbalta 60 MG Lisinopril- hydroCHLORO thiazide 10-12.5 MG Lisinopril- hydroCHLORO thiazide 10-12.5 MG No Lisinopril -hydroCHLO ROthiazide 10-12.5 MG traZODone HCl 50 MG traZODone HCl 50 MG No QD traZODone HCl 50 MG Naltrexone Naltrexone No Naltrexone Levothyroxi ne Sodium 150 MCG Levothyroxi ne Sodium 150 MCG No QD Levothyrox ine Sodium 150 MCG metFORMIN HCl 1000 MG metFORMIN HCl 1000 MG No 1{table t_with_ a_meal} QD metFORMIN HCl 1000 MG Fluconazole 150 MG Fluconazole 150 MG No 1{table t} Fluconazol e 150 MG Maxalt 10 MG Maxalt 10 MG No Maxalt 10 MG Levothyroxi ne Sodium 137 MCG Levothyroxi ne Sodium 137 MCG No QD Levothyrox ine Sodium 137 MCG Topiramate 50 MG Topiramate 50 MG No Topiramate 50 MG traZODone HCl 50 MG traZODone HCl 50 MG No QD traZODone HCl 50 MG Lisinopril- hydroCHLORO thiazide 10-12.5 MG Lisinopril- hydroCHLORO thiazide 10-12.5 MG No Lisinopril -hydroCHLO ROthiazide 10-12.5 MG Lisinopril- hydroCHLORO thiazide 20-12.5 MG Lisinopril- hydroCHLORO thiazide 20-12.5 MG No 1{table t} QD Lisinopril -hydroCHLO ROthiazide 20-12.5 MG Liothyronin e Sodium 5 MCG Liothyronin e Sodium 5 MCG No 1{table t_on_an _empty_ stomach } QD Liothyroni ne Sodium 5 MCG Levothyroxi ne Sodium 150 MCG Levothyroxi ne Sodium 150 MCG No QD Levothyrox ine Sodium 150 MCG hydrOXYzine HCl 50 MG hydrOXYzine HCl 50 MG No 1{table t_at_be dtime_a s_neede d} QD hydrOXYzin e HCl 50 MG Ozempic (0.25 or 0.5 MG/DOSE) 2 MG/1.5ML Ozempic (0.25 or 0.5 MG/DOSE) 2 MG/1.5ML No Ozempic (0.25 or 0.5 MG/DOSE) 2 MG/1.5ML Cymbalta 60 MG Cymbalta 60 MG No 1{capsu le} BID Cymbalta 60 MG predniSONE 20 MG predniSONE 20 MG No QD predniSONE 20 MG Pantoprazol e Sodium 40 MG Pantoprazol e Sodium 40 MG No 1{table t} QD Pantoprazo le Sodium 40 MG traZODone HCl 50 MG traZODone HCl 50 MG No QD traZODone HCl 50 MG Levothyroxi ne Sodium 150 MCG Levothyroxi ne Sodium 150 MCG No QD Levothyrox ine Sodium 150 MCG Dexcom G6 First Assistant - Dexcom G6 First Assistant - No Dexcom G6 First Assistant - Fluconazole 150 MG Fluconazole 150 MG No 1{table t} Fluconazol e 150 MG Lisinopril- hydroCHLORO thiazide 20-12.5 MG Lisinopril- hydroCHLORO thiazide 20-12.5 MG No 1{table t} QD Lisinopril -hydroCHLO ROthiazide 20-12.5 MG Lisinopril- hydroCHLORO thiazide 10-12.5 MG Lisinopril- hydroCHLORO thiazide 10-12.5 MG No Lisinopril -hydroCHLO ROthiazide 10-12.5 MG Dexcom G6 Transmitter - Dexcom G6 Transmitter - No Dexcom G6 Transmitte r - Ozempic (0.25 or 0.5 MG/DOSE) 2 MG/1.5ML Ozempic (0.25 or 0.5 MG/DOSE) 2 MG/1.5ML No Ozempic (0.25 or 0.5 MG/DOSE) 2 MG/1.5ML Pantoprazol e Sodium 40 MG Pantoprazol e Sodium 40 MG No 1{table t} QD Pantoprazo le Sodium 40 MG Hydroxychlo roquine Sulfate 200 MG Hydroxychlo roquine Sulfate 200 MG No BID Hydroxychl oroquine Sulfate 200 MG Maxalt 10 MG Maxalt 10 MG No Maxalt 10 MG Cymbalta 60 MG Cymbalta 60 MG No 1{capsu le} BID Cymbalta 60 MG Liothyronin e Sodium 5 MCG Liothyronin e Sodium 5 MCG No 1{table t_on_an _empty_ stomach } QD Liothyroni ne Sodium 5 MCG metFORMIN HCl 1000 MG metFORMIN HCl 1000 MG No 1{table t_with_ a_meal} QD metFORMIN HCl 1000 MG predniSONE 20 MG predniSONE 20 MG No QD predniSONE 20 MG Dexcom G6 Sensor - Dexcom G6 Sensor - No Dexcom G6 Sensor - Levothyroxi ne Sodium 125 MCG Levothyroxi ne Sodium 125 MCG No QD Levothyrox ine Sodium 125 MCG Topiramate 50 MG Topiramate 50 MG No Topiramate 50 MG hydrOXYzine HCl 50 MG hydrOXYzine HCl 50 MG No 1{table t_at_be dtime_a s_neede d} QD hydrOXYzin e HCl 50 MG Maxalt 10 MG Maxalt 10 MG No Maxalt 10 MG Hydroxychlo roquine Sulfate 200 MG Hydroxychlo roquine Sulfate 200 MG No BID Hydroxychl oroquine Sulfate 200 MG Levothyroxi ne Sodium 125 MCG Levothyroxi ne Sodium 125 MCG No QD Levothyrox ine Sodium 125 MCG Dexcom G6 First Assistant - Dexcom G6 First Assistant - No Dexcom G6 First Assistant - Liothyronin e Sodium 5 MCG Liothyronin e Sodium 5 MCG No 1{table t_on_an _empty_ stomach } QD Liothyroni ne Sodium 5 MCG Ozempic (0.25 or 0.5 MG/DOSE) 2 MG/1.5ML Ozempic (0.25 or 0.5 MG/DOSE) 2 MG/1.5ML No Ozempic (0.25 or 0.5 MG/DOSE) 2 MG/1.5ML Rosuvastati n Calcium 10 MG Rosuvastati n Calcium 10 MG No 1{table t} QD Rosuvastat in Calcium 10 MG Topiramate 50 MG Topiramate 50 MG No Topiramate 50 MG Pantoprazol e Sodium 40 MG Pantoprazol e Sodium 40 MG No 1{table t} QD Pantoprazo le Sodium 40 MG Fluconazole 150 MG Fluconazole 150 MG No 1{table t} Fluconazol e 150 MG traZODone HCl 50 MG traZODone HCl 50 MG No QD traZODone HCl 50 MG Lisinopril- hydroCHLORO thiazide 20-12.5 MG Lisinopril- hydroCHLORO thiazide 20-12.5 MG No 1{table t} QD Lisinopril -hydroCHLO ROthiazide 20-12.5 MG hydrOXYzine HCl 50 MG hydrOXYzine HCl 50 MG No 1{table t_at_be dtime_a s_neede d} QD hydrOXYzin e HCl 50 MG Lisinopril- hydroCHLORO thiazide 10-12.5 MG Lisinopril- hydroCHLORO thiazide 10-12.5 MG No Lisinopril -hydroCHLO ROthiazide 10-12.5 MG predniSONE 20 MG predniSONE 20 MG No QD predniSONE 20 MG Dexcom G6 Sensor - Dexcom G6 Sensor - No Dexcom G6 Sensor - Cymbalta 60 MG Cymbalta 60 MG No 1{capsu le} BID Cymbalta 60 MG metFORMIN HCl 1000 MG metFORMIN HCl 1000 MG No 1{table t_with_ a_meal} QD metFORMIN HCl 1000 MG Levothyroxi ne Sodium 150 MCG Levothyroxi ne Sodium 150 MCG No QD Levothyrox ine Sodium 150 MCG Dexcom G6 Transmitter - Dexcom G6 Transmitter - No Dexcom G6 Transmitte r - Maxalt 10 MG Maxalt 10 MG No Maxalt 10 MG Hydroxychlo roquine Sulfate 200 MG Hydroxychlo roquine Sulfate 200 MG No BID Hydroxychl oroquine Sulfate 200 MG Levothyroxi ne Sodium 125 MCG Levothyroxi ne Sodium 125 MCG No QD Levothyrox ine Sodium 125 MCG Dexcom G6 First Assistant - Dexcom G6 First Assistant - No Dexcom G6 First Assistant - Liothyronin e Sodium 5 MCG Liothyronin e Sodium 5 MCG No 1{table t_on_an _empty_ stomach } QD Liothyroni ne Sodium 5 MCG Ozempic (0.25 or 0.5 MG/DOSE) 2 MG/1.5ML Ozempic (0.25 or 0.5 MG/DOSE) 2 MG/1.5ML No Ozempic (0.25 or 0.5 MG/DOSE) 2 MG/1.5ML Rosuvastati n Calcium 10 MG Rosuvastati n Calcium 10 MG No 1{table t} QD Rosuvastat in Calcium 10 MG Topiramate 50 MG Topiramate 50 MG No Topiramate 50 MG Pantoprazol e Sodium 40 MG Pantoprazol e Sodium 40 MG No 1{table t} QD Pantoprazo le Sodium 40 MG Fluconazole 150 MG Fluconazole 150 MG No 1{table t} Fluconazol e 150 MG traZODone HCl 50 MG traZODone HCl 50 MG No QD traZODone HCl 50 MG Lisinopril- hydroCHLORO thiazide 20-12.5 MG Lisinopril- hydroCHLORO thiazide 20-12.5 MG No 1{table t} QD Lisinopril -hydroCHLO ROthiazide 20-12.5 MG hydrOXYzine HCl 50 MG hydrOXYzine HCl 50 MG No 1{table t_at_be dtime_a s_neede d} QD hydrOXYzin e HCl 50 MG Lisinopril- hydroCHLORO thiazide 10-12.5 MG Lisinopril- hydroCHLORO thiazide 10-12.5 MG No Lisinopril -hydroCHLO ROthiazide 10-12.5 MG predniSONE 20 MG predniSONE 20 MG No QD predniSONE 20 MG Dexcom G6 Sensor - Dexcom G6 Sensor - No Dexcom G6 Sensor - Cymbalta 60 MG Cymbalta 60 MG No 1{capsu le} BID Cymbalta 60 MG metFORMIN HCl 1000 MG metFORMIN HCl 1000 MG No 1{table t_with_ a_meal} QD metFORMIN HCl 1000 MG Levothyroxi ne Sodium 150 MCG Levothyroxi ne Sodium 150 MCG No QD Levothyrox ine Sodium 150 MCG Dexcom G6 Transmitter - Dexcom G6 Transmitter - No Dexcom G6 Transmitte r - Levothyroxi ne Sodium 125 MCG Levothyroxi ne Sodium 125 MCG No QD Levothyrox ine Sodium 125 MCG Lisinopril- hydroCHLORO thiazide 10-12.5 MG Lisinopril- hydroCHLORO thiazide 10-12.5 MG No Lisinopril -hydroCHLO ROthiazide 10-12.5 MG Maxalt 10 MG Maxalt 10 MG No Maxalt 10 MG traZODone HCl 50 MG traZODone HCl 50 MG No QD traZODone HCl 50 MG Rosuvastati n Calcium 10 MG Rosuvastati n Calcium 10 MG No 1{table t} QD Rosuvastat in Calcium 10 MG Ozempic (0.25 or 0.5 MG/DOSE) 2 MG/1.5ML Ozempic (0.25 or 0.5 MG/DOSE) 2 MG/1.5ML No Ozempic (0.25 or 0.5 MG/DOSE) 2 MG/1.5ML Liothyronin e Sodium 5 MCG Liothyronin e Sodium 5 MCG No 1{table t_on_an _empty_ stomach } QD Liothyroni ne Sodium 5 MCG Topiramate 50 MG Topiramate 50 MG No Topiramate 50 MG Pantoprazol e Sodium 40 MG Pantoprazol e Sodium 40 MG No 1{table t} QD Pantoprazo le Sodium 40 MG Fluconazole 150 MG Fluconazole 150 MG No 1{table t} Fluconazol e 150 MG hydrOXYzine HCl 50 MG hydrOXYzine HCl 50 MG No 1{table t_at_be dtime_a s_neede d} QD hydrOXYzin e HCl 50 MG Lisinopril- hydroCHLORO thiazide 20-12.5 MG Lisinopril- hydroCHLORO thiazide 20-12.5 MG No 1{table t} QD Lisinopril -hydroCHLO ROthiazide 20-12.5 MG Cymbalta 60 MG Cymbalta 60 MG No 1{capsu le} BID Cymbalta 60 MG Dexcom G6 First Assistant - Dexcom G6 First Assistant - No Dexcom G6 First Assistant - predniSONE 20 MG predniSONE 20 MG No QD predniSONE 20 MG Hydroxychlo roquine Sulfate 200 MG Hydroxychlo roquine Sulfate 200 MG No BID Hydroxychl oroquine Sulfate 200 MG Dexcom G6 Transmitter - Dexcom G6 Transmitter - No Dexcom G6 Transmitte r - Dexcom G6 Sensor - Dexcom G6 Sensor - No Dexcom G6 Sensor - metFORMIN HCl 1000 MG metFORMIN HCl 1000 MG No 1{table t_with_ a_meal} QD metFORMIN HCl 1000 MG Levothyroxi ne Sodium 150 MCG Levothyroxi ne Sodium 150 MCG No QD Levothyrox ine Sodium 150 MCG Levothyroxi ne Sodium 125 MCG Levothyroxi ne Sodium 125 MCG No QD Levothyrox ine Sodium 125 MCG Lisinopril- hydroCHLORO thiazide 10-12.5 MG Lisinopril- hydroCHLORO thiazide 10-12.5 MG No Lisinopril -hydroCHLO ROthiazide 10-12.5 MG Maxalt 10 MG Maxalt 10 MG No Maxalt 10 MG traZODone HCl 50 MG traZODone HCl 50 MG No QD traZODone HCl 50 MG Rosuvastati n Calcium 10 MG Rosuvastati n Calcium 10 MG No 1{table t} QD Rosuvastat in Calcium 10 MG Ozempic (0.25 or 0.5 MG/DOSE) 2 MG/1.5ML Ozempic (0.25 or 0.5 MG/DOSE) 2 MG/1.5ML No Ozempic (0.25 or 0.5 MG/DOSE) 2 MG/1.5ML Liothyronin e Sodium 5 MCG Liothyronin e Sodium 5 MCG No 1{table t_on_an _empty_ stomach } QD Liothyroni ne Sodium 5 MCG Topiramate 50 MG Topiramate 50 MG No Topiramate 50 MG Pantoprazol e Sodium 40 MG Pantoprazol e Sodium 40 MG No 1{table t} QD Pantoprazo le Sodium 40 MG Fluconazole 150 MG Fluconazole 150 MG No 1{table t} Fluconazol e 150 MG hydrOXYzine HCl 50 MG hydrOXYzine HCl 50 MG No 1{table t_at_be dtime_a s_neede d} QD hydrOXYzin e HCl 50 MG Lisinopril- hydroCHLORO thiazide 20-12.5 MG Lisinopril- hydroCHLORO thiazide 20-12.5 MG No 1{table t} QD Lisinopril -hydroCHLO ROthiazide 20-12.5 MG Cymbalta 60 MG Cymbalta 60 MG No 1{capsu le} BID Cymbalta 60 MG Dexcom G6 First Assistant - Dexcom G6 First Assistant - No Dexcom G6 First Assistant - predniSONE 20 MG predniSONE 20 MG No QD predniSONE 20 MG Hydroxychlo roquine Sulfate 200 MG Hydroxychlo roquine Sulfate 200 MG No BID Hydroxychl oroquine Sulfate 200 MG Dexcom G6 Transmitter - Dexcom G6 Transmitter - No Dexcom G6 Transmitte r - Dexcom G6 Sensor - Dexcom G6 Sensor - No Dexcom G6 Sensor - metFORMIN HCl 1000 MG metFORMIN HCl 1000 MG No 1{table t_with_ a_meal} QD metFORMIN HCl 1000 MG Levothyroxi ne Sodium 150 MCG Levothyroxi ne Sodium 150 MCG No QD Levothyrox ine Sodium 150 MCG Levothyroxi ne Sodium 125 MCG Levothyroxi ne Sodium 125 MCG No QD Levothyrox ine Sodium 125 MCG Lisinopril- hydroCHLORO thiazide 10-12.5 MG Lisinopril- hydroCHLORO thiazide 10-12.5 MG No Lisinopril -hydroCHLO ROthiazide 10-12.5 MG Maxalt 10 MG Maxalt 10 MG No Maxalt 10 MG traZODone HCl 50 MG traZODone HCl 50 MG No QD traZODone HCl 50 MG Rosuvastati n Calcium 10 MG Rosuvastati n Calcium 10 MG No 1{table t} QD Rosuvastat in Calcium 10 MG Ozempic (0.25 or 0.5 MG/DOSE) 2 MG/1.5ML Ozempic (0.25 or 0.5 MG/DOSE) 2 MG/1.5ML No Ozempic (0.25 or 0.5 MG/DOSE) 2 MG/1.5ML Liothyronin e Sodium 5 MCG Liothyronin e Sodium 5 MCG No 1{table t_on_an _empty_ stomach } QD Liothyroni ne Sodium 5 MCG Topiramate 50 MG Topiramate 50 MG No Topiramate 50 MG Pantoprazol e Sodium 40 MG Pantoprazol e Sodium 40 MG No 1{table t} QD Pantoprazo le Sodium 40 MG Fluconazole 150 MG Fluconazole 150 MG No 1{table t} Fluconazol e 150 MG hydrOXYzine HCl 50 MG hydrOXYzine HCl 50 MG No 1{table t_at_be dtime_a s_neede d} QD hydrOXYzin e HCl 50 MG Lisinopril- hydroCHLORO thiazide 20-12.5 MG Lisinopril- hydroCHLORO thiazide 20-12.5 MG No 1{table t} QD Lisinopril -hydroCHLO ROthiazide 20-12.5 MG Cymbalta 60 MG Cymbalta 60 MG No 1{capsu le} BID Cymbalta 60 MG Dexcom G6 First Assistant - Dexcom G6 First Assistant - No Dexcom G6 First Assistant - predniSONE 20 MG predniSONE 20 MG No QD predniSONE 20 MG Hydroxychlo roquine Sulfate 200 MG Hydroxychlo roquine Sulfate 200 MG No BID Hydroxychl oroquine Sulfate 200 MG Dexcom G6 Transmitter - Dexcom G6 Transmitter - No Dexcom G6 Transmitte r - Dexcom G6 Sensor - Dexcom G6 Sensor - No Dexcom G6 Sensor - metFORMIN HCl 1000 MG metFORMIN HCl 1000 MG No 1{table t_with_ a_meal} QD metFORMIN HCl 1000 MG Levothyroxi ne Sodium 150 MCG Levothyroxi ne Sodium 150 MCG No QD Levothyrox ine Sodium 150 MCG Levothyroxi ne Sodium 125 MCG Levothyroxi ne Sodium 125 MCG No QD Levothyrox ine Sodium 125 MCG Lisinopril- hydroCHLORO thiazide 10-12.5 MG Lisinopril- hydroCHLORO thiazide 10-12.5 MG No Lisinopril -hydroCHLO ROthiazide 10-12.5 MG Maxalt 10 MG Maxalt 10 MG No Maxalt 10 MG traZODone HCl 50 MG traZODone HCl 50 MG No QD traZODone HCl 50 MG Rosuvastati n Calcium 10 MG Rosuvastati n Calcium 10 MG No 1{table t} QD Rosuvastat in Calcium 10 MG Ozempic (0.25 or 0.5 MG/DOSE) 2 MG/1.5ML Ozempic (0.25 or 0.5 MG/DOSE) 2 MG/1.5ML No Ozempic (0.25 or 0.5 MG/DOSE) 2 MG/1.5ML Liothyronin e Sodium 5 MCG Liothyronin e Sodium 5 MCG No 1{table t_on_an _empty_ stomach } QD Liothyroni ne Sodium 5 MCG Topiramate 50 MG Topiramate 50 MG No Topiramate 50 MG Pantoprazol e Sodium 40 MG Pantoprazol e Sodium 40 MG No 1{table t} QD Pantoprazo le Sodium 40 MG Fluconazole 150 MG Fluconazole 150 MG No 1{table t} Fluconazol e 150 MG hydrOXYzine HCl 50 MG hydrOXYzine HCl 50 MG No 1{table t_at_be dtime_a s_neede d} QD hydrOXYzin e HCl 50 MG Lisinopril- hydroCHLORO thiazide 20-12.5 MG Lisinopril- hydroCHLORO thiazide 20-12.5 MG No 1{table t} QD Lisinopril -hydroCHLO ROthiazide 20-12.5 MG Cymbalta 60 MG Cymbalta 60 MG No 1{capsu le} BID Cymbalta 60 MG Dexcom G6 First Assistant - Dexcom G6 First Assistant - No Dexcom G6 First Assistant - predniSONE 20 MG predniSONE 20 MG No QD predniSONE 20 MG Hydroxychlo roquine Sulfate 200 MG Hydroxychlo roquine Sulfate 200 MG No BID Hydroxychl oroquine Sulfate 200 MG Dexcom G6 Transmitter - Dexcom G6 Transmitter - No Dexcom G6 Transmitte r - Dexcom G6 Sensor - Dexcom G6 Sensor - No Dexcom G6 Sensor - metFORMIN HCl 1000 MG metFORMIN HCl 1000 MG No 1{table t_with_ a_meal} QD metFORMIN HCl 1000 MG Levothyroxi ne Sodium 150 MCG Levothyroxi ne Sodium 150 MCG No QD Levothyrox ine Sodium 150 MCG Levothyroxi ne Sodium 125 MCG Levothyroxi ne Sodium 125 MCG No QD Levothyrox ine Sodium 125 MCG Lisinopril- hydroCHLORO thiazide 10-12.5 MG Lisinopril- hydroCHLORO thiazide 10-12.5 MG No Lisinopril -hydroCHLO ROthiazide 10-12.5 MG Maxalt 10 MG Maxalt 10 MG No Maxalt 10 MG traZODone HCl 50 MG traZODone HCl 50 MG No QD traZODone HCl 50 MG Rosuvastati n Calcium 10 MG Rosuvastati n Calcium 10 MG No 1{table t} QD Rosuvastat in Calcium 10 MG Ozempic (0.25 or 0.5 MG/DOSE) 2 MG/1.5ML Ozempic (0.25 or 0.5 MG/DOSE) 2 MG/1.5ML No Ozempic (0.25 or 0.5 MG/DOSE) 2 MG/1.5ML Liothyronin e Sodium 5 MCG Liothyronin e Sodium 5 MCG No 1{table t_on_an _empty_ stomach } QD Liothyroni ne Sodium 5 MCG Topiramate 50 MG Topiramate 50 MG No Topiramate 50 MG Pantoprazol e Sodium 40 MG Pantoprazol e Sodium 40 MG No 1{table t} QD Pantoprazo le Sodium 40 MG Fluconazole 150 MG Fluconazole 150 MG No 1{table t} Fluconazol e 150 MG hydrOXYzine HCl 50 MG hydrOXYzine HCl 50 MG No 1{table t_at_be dtime_a s_neede d} QD hydrOXYzin e HCl 50 MG Lisinopril- hydroCHLORO thiazide 20-12.5 MG Lisinopril- hydroCHLORO thiazide 20-12.5 MG No 1{table t} QD Lisinopril -hydroCHLO ROthiazide 20-12.5 MG Cymbalta 60 MG Cymbalta 60 MG No 1{capsu le} BID Cymbalta 60 MG Dexcom G6 First Assistant - Dexcom G6 First Assistant - No Dexcom G6 First Assistant - predniSONE 20 MG predniSONE 20 MG No QD predniSONE 20 MG Hydroxychlo roquine Sulfate 200 MG Hydroxychlo roquine Sulfate 200 MG No BID Hydroxychl oroquine Sulfate 200 MG Dexcom G6 Transmitter - Dexcom G6 Transmitter - No Dexcom G6 Transmitte r - Dexcom G6 Sensor - Dexcom G6 Sensor - No Dexcom G6 Sensor - metFORMIN HCl 1000 MG metFORMIN HCl 1000 MG No 1{table t_with_ a_meal} QD metFORMIN HCl 1000 MG Levothyroxi ne Sodium 150 MCG Levothyroxi ne Sodium 150 MCG No QD Levothyrox ine Sodium 150 MCG Levothyroxi ne Sodium 125 MCG Levothyroxi ne Sodium 125 MCG No QD Levothyrox ine Sodium 125 MCG Lisinopril- hydroCHLORO thiazide 10-12.5 MG Lisinopril- hydroCHLORO thiazide 10-12.5 MG No Lisinopril -hydroCHLO ROthiazide 10-12.5 MG Maxalt 10 MG Maxalt 10 MG No Maxalt 10 MG traZODone HCl 50 MG traZODone HCl 50 MG No QD traZODone HCl 50 MG Rosuvastati n Calcium 10 MG Rosuvastati n Calcium 10 MG No 1{table t} QD Rosuvastat in Calcium 10 MG Ozempic (0.25 or 0.5 MG/DOSE) 2 MG/1.5ML Ozempic (0.25 or 0.5 MG/DOSE) 2 MG/1.5ML No Ozempic (0.25 or 0.5 MG/DOSE) 2 MG/1.5ML Liothyronin e Sodium 5 MCG Liothyronin e Sodium 5 MCG No 1{table t_on_an _empty_ stomach } QD Liothyroni ne Sodium 5 MCG Topiramate 50 MG Topiramate 50 MG No Topiramate 50 MG Pantoprazol e Sodium 40 MG Pantoprazol e Sodium 40 MG No 1{table t} QD Pantoprazo le Sodium 40 MG Fluconazole 150 MG Fluconazole 150 MG No 1{table t} Fluconazol e 150 MG hydrOXYzine HCl 50 MG hydrOXYzine HCl 50 MG No 1{table t_at_be dtime_a s_neede d} QD hydrOXYzin e HCl 50 MG Lisinopril- hydroCHLORO thiazide 20-12.5 MG Lisinopril- hydroCHLORO thiazide 20-12.5 MG No 1{table t} QD Lisinopril -hydroCHLO ROthiazide 20-12.5 MG Cymbalta 60 MG Cymbalta 60 MG No 1{capsu le} BID Cymbalta 60 MG Dexcom G6 First Assistant - Dexcom G6 First Assistant - No Dexcom G6 First Assistant - predniSONE 20 MG predniSONE 20 MG No QD predniSONE 20 MG Hydroxychlo roquine Sulfate 200 MG Hydroxychlo roquine Sulfate 200 MG No BID Hydroxychl oroquine Sulfate 200 MG Dexcom G6 Transmitter - Dexcom G6 Transmitter - No Dexcom G6 Transmitte r - Dexcom G6 Sensor - Dexcom G6 Sensor - No Dexcom G6 Sensor - metFORMIN HCl 1000 MG metFORMIN HCl 1000 MG No 1{table t_with_ a_meal} QD metFORMIN HCl 1000 MG Levothyroxi ne Sodium 150 MCG Levothyroxi ne Sodium 150 MCG No QD Levothyrox ine Sodium 150 MCG Lisinopril- hydroCHLORO thiazide 10-12.5 MG Lisinopril- hydroCHLORO thiazide 10-12.5 MG No Lisinopril -hydroCHLO ROthiazide 10-12.5 MG Maxalt 10 MG Maxalt 10 MG No Maxalt 10 MG traZODone HCl 50 MG traZODone HCl 50 MG No QD traZODone HCl 50 MG Levothyroxi ne Sodium 125 MCG Levothyroxi ne Sodium 125 MCG No QD Levothyrox ine Sodium 125 MCG Ozempic (0.25 or 0.5 MG/DOSE) 2 MG/1.5ML Ozempic (0.25 or 0.5 MG/DOSE) 2 MG/1.5ML No Ozempic (0.25 or 0.5 MG/DOSE) 2 MG/1.5ML Liothyronin e Sodium 5 MCG Liothyronin e Sodium 5 MCG No 1{table t_on_an _empty_ stomach } QD Liothyroni ne Sodium 5 MCG Topiramate 50 MG Topiramate 50 MG No Topiramate 50 MG Pantoprazol e Sodium 40 MG Pantoprazol e Sodium 40 MG No 1{table t} QD Pantoprazo le Sodium 40 MG Fluconazole 150 MG Fluconazole 150 MG No 1{table t} Fluconazol e 150 MG hydrOXYzine HCl 50 MG hydrOXYzine HCl 50 MG No 1{table t_at_be dtime_a s_neede d} QD hydrOXYzin e HCl 50 MG Lisinopril- hydroCHLORO thiazide 20-12.5 MG Lisinopril- hydroCHLORO thiazide 20-12.5 MG No 1{table t} QD Lisinopril -hydroCHLO ROthiazide 20-12.5 MG Rosuvastati n Calcium 10 MG Rosuvastati n Calcium 10 MG No Rosuvastat in Calcium 10 MG Dexcom G6 First Assistant - Dexcom G6 First Assistant - No Dexcom G6 First Assistant - predniSONE 20 MG predniSONE 20 MG No QD predniSONE 20 MG Hydroxychlo roquine Sulfate 200 MG Hydroxychlo roquine Sulfate 200 MG No BID Hydroxychl oroquine Sulfate 200 MG Dexcom G6 Transmitter - Dexcom G6 Transmitter - No Dexcom G6 Transmitte r - Dexcom G6 Sensor - Dexcom G6 Sensor - No Dexcom G6 Sensor - metFORMIN HCl 1000 MG metFORMIN HCl 1000 MG No 1{table t_with_ a_meal} QD metFORMIN HCl 1000 MG Levothyroxi ne Sodium 150 MCG Levothyroxi ne Sodium 150 MCG No QD Levothyrox ine Sodium 150 MCG Cymbalta 60 MG Cymbalta 60 MG No 1{capsu le} BID Cymbalta 60 MG Lisinopril- hydroCHLORO thiazide 10-12.5 MG Lisinopril- hydroCHLORO thiazide 10-12.5 MG No Lisinopril -hydroCHLO ROthiazide 10-12.5 MG Maxalt 10 MG Maxalt 10 MG No Maxalt 10 MG traZODone HCl 50 MG traZODone HCl 50 MG No QD traZODone HCl 50 MG Levothyroxi ne Sodium 125 MCG Levothyroxi ne Sodium 125 MCG No QD Levothyrox ine Sodium 125 MCG Ozempic (0.25 or 0.5 MG/DOSE) 2 MG/1.5ML Ozempic (0.25 or 0.5 MG/DOSE) 2 MG/1.5ML No Ozempic (0.25 or 0.5 MG/DOSE) 2 MG/1.5ML Liothyronin e Sodium 5 MCG Liothyronin e Sodium 5 MCG No 1{table t_on_an _empty_ stomach } QD Liothyroni ne Sodium 5 MCG Topiramate 50 MG Topiramate 50 MG No Topiramate 50 MG Pantoprazol e Sodium 40 MG Pantoprazol e Sodium 40 MG No 1{table t} QD Pantoprazo le Sodium 40 MG Fluconazole 150 MG Fluconazole 150 MG No 1{table t} Fluconazol e 150 MG hydrOXYzine HCl 50 MG hydrOXYzine HCl 50 MG No 1{table t_at_be dtime_a s_neede d} QD hydrOXYzin e HCl 50 MG Lisinopril- hydroCHLORO thiazide 20-12.5 MG Lisinopril- hydroCHLORO thiazide 20-12.5 MG No 1{table t} QD Lisinopril -hydroCHLO ROthiazide 20-12.5 MG Rosuvastati n Calcium 10 MG Rosuvastati n Calcium 10 MG No Rosuvastat in Calcium 10 MG Dexcom G6 First Assistant - Dexcom G6 First Assistant - No Dexcom G6 First Assistant - predniSONE 20 MG predniSONE 20 MG No QD predniSONE 20 MG Hydroxychlo roquine Sulfate 200 MG Hydroxychlo roquine Sulfate 200 MG No BID Hydroxychl oroquine Sulfate 200 MG Dexcom G6 Transmitter - Dexcom G6 Transmitter - No Dexcom G6 Transmitte r - Dexcom G6 Sensor - Dexcom G6 Sensor - No Dexcom G6 Sensor - metFORMIN HCl 1000 MG metFORMIN HCl 1000 MG No 1{table t_with_ a_meal} QD metFORMIN HCl 1000 MG Levothyroxi ne Sodium 150 MCG Levothyroxi ne Sodium 150 MCG No QD Levothyrox ine Sodium 150 MCG Cymbalta 60 MG Cymbalta 60 MG No 1{capsu le} BID Cymbalta 60 MG Lisinopril- hydroCHLORO thiazide 10-12.5 MG Lisinopril- hydroCHLORO thiazide 10-12.5 MG No Lisinopril -hydroCHLO ROthiazide 10-12.5 MG Maxalt 10 MG Maxalt 10 MG No Maxalt 10 MG traZODone HCl 50 MG traZODone HCl 50 MG No QD traZODone HCl 50 MG Levothyroxi ne Sodium 125 MCG Levothyroxi ne Sodium 125 MCG No QD Levothyrox ine Sodium 125 MCG Ozempic (0.25 or 0.5 MG/DOSE) 2 MG/1.5ML Ozempic (0.25 or 0.5 MG/DOSE) 2 MG/1.5ML No Ozempic (0.25 or 0.5 MG/DOSE) 2 MG/1.5ML Liothyronin e Sodium 5 MCG Liothyronin e Sodium 5 MCG No 1{table t_on_an _empty_ stomach } QD Liothyroni ne Sodium 5 MCG Topiramate 50 MG Topiramate 50 MG No Topiramate 50 MG Pantoprazol e Sodium 40 MG Pantoprazol e Sodium 40 MG No 1{table t} QD Pantoprazo le Sodium 40 MG Fluconazole 150 MG Fluconazole 150 MG No 1{table t} Fluconazol e 150 MG hydrOXYzine HCl 50 MG hydrOXYzine HCl 50 MG No 1{table t_at_be dtime_a s_neede d} QD hydrOXYzin e HCl 50 MG Lisinopril- hydroCHLORO thiazide 20-12.5 MG Lisinopril- hydroCHLORO thiazide 20-12.5 MG No 1{table t} QD Lisinopril -hydroCHLO ROthiazide 20-12.5 MG Rosuvastati n Calcium 10 MG Rosuvastati n Calcium 10 MG No Rosuvastat in Calcium 10 MG Dexcom G6 First Assistant - Dexcom G6 First Assistant - No Dexcom G6 First Assistant - predniSONE 20 MG predniSONE 20 MG No QD predniSONE 20 MG Hydroxychlo roquine Sulfate 200 MG Hydroxychlo roquine Sulfate 200 MG No BID Hydroxychl oroquine Sulfate 200 MG Dexcom G6 Transmitter - Dexcom G6 Transmitter - No Dexcom G6 Transmitte r - Dexcom G6 Sensor - Dexcom G6 Sensor - No Dexcom G6 Sensor - metFORMIN HCl 1000 MG metFORMIN HCl 1000 MG No 1{table t_with_ a_meal} QD metFORMIN HCl 1000 MG Levothyroxi ne Sodium 150 MCG Levothyroxi ne Sodium 150 MCG No QD Levothyrox ine Sodium 150 MCG Cymbalta 60 MG Cymbalta 60 MG No 1{capsu le} BID Cymbalta 60 MG Lisinopril- hydroCHLORO thiazide 10-12.5 MG Lisinopril- hydroCHLORO thiazide 10-12.5 MG No Lisinopril -hydroCHLO ROthiazide 10-12.5 MG Maxalt 10 MG Maxalt 10 MG No Maxalt 10 MG traZODone HCl 50 MG traZODone HCl 50 MG No QD traZODone HCl 50 MG Levothyroxi ne Sodium 125 MCG Levothyroxi ne Sodium 125 MCG No QD Levothyrox ine Sodium 125 MCG Ozempic (0.25 or 0.5 MG/DOSE) 2 MG/1.5ML Ozempic (0.25 or 0.5 MG/DOSE) 2 MG/1.5ML No Ozempic (0.25 or 0.5 MG/DOSE) 2 MG/1.5ML Liothyronin e Sodium 5 MCG Liothyronin e Sodium 5 MCG No 1{table t_on_an _empty_ stomach } QD Liothyroni ne Sodium 5 MCG Topiramate 50 MG Topiramate 50 MG No Topiramate 50 MG Pantoprazol e Sodium 40 MG Pantoprazol e Sodium 40 MG No 1{table t} QD Pantoprazo le Sodium 40 MG Fluconazole 150 MG Fluconazole 150 MG No 1{table t} Fluconazol e 150 MG hydrOXYzine HCl 50 MG hydrOXYzine HCl 50 MG No 1{table t_at_be dtime_a s_neede d} QD hydrOXYzin e HCl 50 MG Lisinopril- hydroCHLORO thiazide 20-12.5 MG Lisinopril- hydroCHLORO thiazide 20-12.5 MG No 1{table t} QD Lisinopril -hydroCHLO ROthiazide 20-12.5 MG Rosuvastati n Calcium 10 MG Rosuvastati n Calcium 10 MG No Rosuvastat in Calcium 10 MG Dexcom G6 First Assistant - Dexcom G6 First Assistant - No Dexcom G6 First Assistant - predniSONE 20 MG predniSONE 20 MG No QD predniSONE 20 MG Hydroxychlo roquine Sulfate 200 MG Hydroxychlo roquine Sulfate 200 MG No BID Hydroxychl oroquine Sulfate 200 MG Dexcom G6 Transmitter - Dexcom G6 Transmitter - No Dexcom G6 Transmitte r - Dexcom G6 Sensor - Dexcom G6 Sensor - No Dexcom G6 Sensor - metFORMIN HCl 1000 MG metFORMIN HCl 1000 MG No 1{table t_with_ a_meal} QD metFORMIN HCl 1000 MG Levothyroxi ne Sodium 150 MCG Levothyroxi ne Sodium 150 MCG No QD Levothyrox ine Sodium 150 MCG Cymbalta 60 MG Cymbalta 60 MG No 1{capsu le} BID Cymbalta 60 MG Lisinopril- hydroCHLORO thiazide 10-12.5 MG Lisinopril- hydroCHLORO thiazide 10-12.5 MG No Lisinopril -hydroCHLO ROthiazide 10-12.5 MG Maxalt 10 MG Maxalt 10 MG No Maxalt 10 MG traZODone HCl 50 MG traZODone HCl 50 MG No QD traZODone HCl 50 MG Levothyroxi ne Sodium 125 MCG Levothyroxi ne Sodium 125 MCG No QD Levothyrox ine Sodium 125 MCG Ozempic (0.25 or 0.5 MG/DOSE) 2 MG/1.5ML Ozempic (0.25 or 0.5 MG/DOSE) 2 MG/1.5ML No Ozempic (0.25 or 0.5 MG/DOSE) 2 MG/1.5ML Liothyronin e Sodium 5 MCG Liothyronin e Sodium 5 MCG No 1{table t_on_an _empty_ stomach } QD Liothyroni ne Sodium 5 MCG Topiramate 50 MG Topiramate 50 MG No Topiramate 50 MG Pantoprazol e Sodium 40 MG Pantoprazol e Sodium 40 MG No 1{table t} QD Pantoprazo le Sodium 40 MG Fluconazole 150 MG Fluconazole 150 MG No 1{table t} Fluconazol e 150 MG hydrOXYzine HCl 50 MG hydrOXYzine HCl 50 MG No 1{table t_at_be dtime_a s_neede d} QD hydrOXYzin e HCl 50 MG Lisinopril- hydroCHLORO thiazide 20-12.5 MG Lisinopril- hydroCHLORO thiazide 20-12.5 MG No 1{table t} QD Lisinopril -hydroCHLO ROthiazide 20-12.5 MG Rosuvastati n Calcium 10 MG Rosuvastati n Calcium 10 MG No Rosuvastat in Calcium 10 MG Dexcom G6 First Assistant - Dexcom G6 First Assistant - No Dexcom G6 First Assistant - predniSONE 20 MG predniSONE 20 MG No QD predniSONE 20 MG Hydroxychlo roquine Sulfate 200 MG Hydroxychlo roquine Sulfate 200 MG No BID Hydroxychl oroquine Sulfate 200 MG Dexcom G6 Transmitter - Dexcom G6 Transmitter - No Dexcom G6 Transmitte r - Dexcom G6 Sensor - Dexcom G6 Sensor - No Dexcom G6 Sensor - metFORMIN HCl 1000 MG metFORMIN HCl 1000 MG No 1{table t_with_ a_meal} QD metFORMIN HCl 1000 MG Levothyroxi ne Sodium 150 MCG Levothyroxi ne Sodium 150 MCG No QD Levothyrox ine Sodium 150 MCG Cymbalta 60 MG Cymbalta 60 MG No 1{capsu le} BID Cymbalta 60 MG Vital Signs Vital Name Observation Time Observation Value Comments S marquita height 2023-04-26 13:40:00 68 [in_i] Commo n [facility] weight 2023-04-26 13:40:00 185 [lb_av] Comm on [facility] temperature 2023-04-26 13:40:00 97 [degF] Comm on [facility] bmi 2023-04-26 13:40:00 28.13 kg/m2 Comm on [facility] height 2023-03-09 11:20:00 68 [in_i] Commo n [facility] weight 2023-03-09 11:20:00 188 [lb_av] Comm on [facility] temperature 2023-03-09 11:20:00 97.6 [degF] Com mon [facility] bmi 2023-03-09 11:20:00 28.58 kg/m2 Comm on [facility] oximetry 2023-03-09 11:20:00 93 % Commo n [facility] respiratory rate 2023-03-09 11:20:00 16 /min [facility] blood pressure systolic 2023-03-09 11:20:00 136 mm[Hg] [facility] blood pressure diastolic 2023-03-09 11:20:00 74 mm[Hg] [facility] height 2023-01-13 10:40:00 68 [in_i] Commo n [facility] weight 2023-01-13 10:40:00 193 [lb_av] Comm on [facility] temperature 2023-01-13 10:40:00 97.5 [degF] Com mon [facility] bmi 2023-01-13 10:40:00 29.34 kg/m2 Comm on [facility] oximetry 2023-01-13 10:40:00 97 % Commo n [facility] respiratory rate 2023-01-13 10:40:00 16 /min [facility] blood pressure systolic 2023-01-13 10:40:00 124 mm[Hg] [facility] blood pressure diastolic 2023-01-13 10:40:00 70 mm[Hg] [facility] Systolic blood pressure 2022-07-21 16:36:00 112 mm[Hg] [facility] Diastolic blood pressure 2022-07-21 16:36:00 73 mm[Hg] [facility] Heart rate 2022-07-21 16:36:00 102 /min [facility] Respiratory rate 2022-07-21 16:36:00 16 /min [facility] Body height 2022-07-21 16:36:00 [facility]8 [facility] 2022-07-21 16:36:00 [facility]245 [facility] 2022-07-21 16:36:00 31[facility]71 [facility]22-[facility]-20 15:20:00 68 [in_i] Commo n [facility] weight 2022-07-20 15:20:00 220.0 [lb_av] Co mmon [facility] temperature 2022-07-20 15:20:00 97.2 [degF] Com mon [facility] bmi 2022-07-20 15:20:00 33.45 kg/m2 Comm on [facility] oximetry 2022-07-20 15:20:00 95 % Commo n [facility] respiratory rate 2022-07-20 15:20:00 15 /min [facility] blood pressure systolic 2022-07-20 15:20:00 116 mm[Hg] [facility] blood pressure diastolic 2022-07-20 15:20:00 78 mm[Hg] [facility] height 2022-07-20 15:20:00 68 [in_i] Commo n [facility] weight 2022-07-20 15:20:00 220.0 [lb_av] Co m[facility] temperature 2022-07-20 15:20:00 97.2 [degF] Com mon [facility] bmi 2022-07-20 15:20:00 33.45 kg/m2 Comm on [facility] oximetry 2022-07-20 15:20:00 95 % Commo n [facility] respiratory rate 2022-07-20 15:20:00 15 /min [facility] blood pressure systolic 2022-07-20 15:20:00 116 mm[Hg] [facility] blood pressure diastolic 2022-07-20 15:20:00 78 mm[Hg] [facility] height 2022-04-27 10:20:00 68 [in_i] Commo n [facility] weight 2022-04-27 10:20:00 195 [lb_av] Comm on [facility] temperature 2022-04-27 10:20:00 101 [degF] Comm on [facility] bmi 2022-04-27 10:20:00 29.65 kg/m2 Comm on [facility] Systolic blood pressure 2021-09-15 19:12:00 132 mm[Hg] [facility] Diastolic blood pressure 2021-09-15 19:12:00 79 mm[Hg] [facility] Heart rate 2021-09-15 19:12:00 97 /min [facility] Body temperature 2021-09-15 19:12:00 36.28 Joanna [facility] Respiratory rate 2021-09-15 19:12:00 16 /min [facility] Body height 2021-09-15 19:12:00 177.8 cm [facility] Body weight 2021-09-15 19:12:00 93.895 [facility] BMI 2021-09-15 19:12:00 29.70 kg/m2 [facility] height 2021-06-06 09:40:00 68.00 [in_i] Com mon [facility] weight 2021-06-06 09:40:00 200.6 [lb_av] Co mmon [facility] bmi 2021-06-06 09:40:00 30.5 kg/m2 Comm n [facility] oximetry 2021-06-06 09:40:00 98 % [facility] blood pressure systolic 2021-06-06 09:40:00 130 mm[Hg] [facility] blood pressure diastolic 2021-06-06 09:40:00 64 mm[Hg] [facility] Systolic blood pressure 2019-12-01 18:05:00 125 mm[Hg] [facility] Diastolic blood pressure 2019-12-01 18:05:00 80 mm[Hg] [facility] Heart rate 2019-12-01 18:05:00 87 /min [facility] Body temperature 2019-12-01 18:05:[address] [facility] Respiratory rate 2019-12-01 18:05:00 18 /min [facility] Body height 2019-12-01 18:05:00 177.8 cm [facility] Body weight 2019-12-01 18:05:00 97.523 kg [facility] BMI 2019-12-01 18:05:00 30.85 kg/m2 [facility] Oxygen saturation in Arterial blood by Pulse oximetry 2019-12-01 18:05:00 97 /min [facility] Systolic blood pressure 2019-12-01 18:05:00 125 mm[Hg] [facility] Diastolic blood pressure 2019-12-01 18:05:00 80 mm[Hg] [facility] Heart rate 2019-12-01 18:05:00 87 /min [facility] Body temperature 2019-12-01 18:05:[address] [facility] Respiratory rate 2019-12-01 18:05:00 18 /min [facility] Body height 2019-12-01 18:05:00 177.8 cm [facility] Body weight 2019-12-01 18:05:00 97.523 kg [facility] BMI 2019-12-01 18:05:00 30.85 kg/m2 [facility] Oxygen saturation in Arterial blood by Pulse oximetry 2019-12-01 18:05:00 97 /min [facility] Procedures Procedure Date / Time Performed Performing Clinicia n Source T4, FREE 2021-09-15 20:36:00 Send[facility]an[facility] TSH 2021-09-15 20:36:00 [facility] T3 2021-09-15 20:36:00 [facility] CONSENT/REFUSAL FOR DIAGNOSIS AND TREATMENT 2019-12-01 17:52:51 Doctor Unassigned, [place] [facility] ASSIGNMENT OF BENEFITS 2019-12-01 17:52:38 Docto r Unassigned, [place] [facility] Encounters Start Date/Time End Date/Time Encounter Type Admission Type Attending Clinicians Care Facility Care Department Encounter ID Source 2023-07-15 09:43:01 Outpatient Walsh[facility]irdre naqvii [facility] [id number] [facility] 2023-01-12 13:09:00 Outpatient Richa [facility] [id number] [facility] 2022-12-01 13:16:50 Outpatient [facility] [id number] [facility] 2022-11-30 10:55:09 Outpatient [facility] [id number] [facility] 2022-11-06 13:27:14 Outpatient [facility] [id number] [facility] 2022-11-02 15:11:00 Outpatient Walsh, Richa [facility] [id number] [facility] 2022-10-15 16:09:01 Outpatient Richa Walsh [facility] [id number] [facility] 2022-10-01 16:37:00 Outpatient SARBJIT, Na [facility] [id number] [facility] 2022-08-20 10:41:01 Outpatient Schaffer, Na [facility] [id number] [facility] 2022-08-17 16:17:01 Outpatient Schaffer, Na [facility] [id number] [facility] 2022-07-16 15:59:01 Outpatient Sarbjit, Na [facility] [id number] [facility] 2022-06-02 10:52:01 Outpatient Sarbjit, Na [facility] [id number] [facility] 2022-05-25 15:12:02 Outpatient Sarbjit, Na [facility] [id number] [facility] 2022-05-22 09:06:01 Outpatient Walsh Avnee [facility] [id number] [facility] 2022-04-23 09:05:00 Outpatient Walsh, Avnee [facility] [id number] [facility] 2021-10-08 13:53:03 Outpatient Walsh, Avnee [facility] [id number] [facility] 2021-10-08 13:27:08 Outpatient Walsh, Avnee [facility] [id number] [facility] 2021-10-08 13:26:39 Outpatient Walsh, Avnee [facility] [id number] [facility] 2021-10-08 13:17:41 Outpatient Crissy Cordoba [facility] [id number] [facility] 2021-10-08 11:28:09 Outpatient Crissy Cordoba [facility] [id number] [facility] 2021-09-15 14:21:13 Outpatient SHANITA GARCIA [facility] [id number] [facility] 2023-07-18 00:00:00 2023-07-18 00:00:00 (WEB) [facility] [id number] [facility] 2023-05-07 00:00:00 2023-05-07 00:00:00 (WEB) [facility] ST[facility]C [id number] [facility] 2023-04-27 00:00:00 2023-04-27 00:00:00 (TEL) STLMLC STL[facility]C [id number] [facility] 2023-04-26 00:00:00 2023-04-26 00:00:00 (WEB) [facility] ST[facility]C [id number] [facility] 2023-04-26 00:00:00 2023-04-26 00:00:00 OFFICE VISIT ESTAB PT LEVEL 4 [facility] ST[facility] [id number] [facility] 2023-03-09 00:00:00 2023-03-09 00:00:00 OFFICE VISIT ESTAB PT LEVEL 4 [facility] ST[facility] [id number] [facility] 2023-02-23 00:00:00 2023-02-23 00:00:00 (TEL) [facility]LMLC ST[facility]C [id number] [facility] 2023-02-18 00:00:00 2023-02-18 00:00:00 (WEB) STLMLC ST[facility]C [id number] [facility] 2023-02-04 00:00:00 2023-02-04 00:00:00 (TEL) [facility]LMLC STL[facility]C [id number] [facility] 2023-02-03 00:00:00 2023-02-03 00:00:00 (WEB) [facility]C ST[facility]C [id number] [facility] 2023-01-13 00:00:00 2023-01-13 00:00:00 OFFICE VISIT ESTAB PT LEVEL 4 [facility] ST[facility]C [id number] [facility] 2022-11-09 00:00:00 2022-11-09 00:00:00 (TEL) STLMLC ST[facility]C [id number] [facility] 2022-11-09 00:00:00 2022-11-09 00:00:00 (WEB) STLMLC ST[facility]C [id number] [facility] 2022-10-01 00:00:00 2022-10-01 00:00:00 (WEB) STLMLC ST[facility]C [id number] [facility] 2022-08-08 00:00:00 2022-08-08 00:00:00 (TEL) STLMLC STL[facility]C [id number] [facility] 2022-07-21 10:45:00 2022-07-21 11:36:50 Office Visit Shanita Garcia [facility] 1.2.840.114 350.1.13.58 9.2.7.2.686 [id number] [facility] 2022-07-20 00:00:00 2022-07-20 00:00:00 PREV VISIT EST AGE 40-64 STLMLC STLMLC [id number] [facility] 2022-04-27 00:00:00 2022-04-27 00:00:00 OFFICE VISIT ESTAB PT LEVEL 4 STLMLC STLMLC [id number] [facility] 2022-04-11 00:00:00 2022-04-11 00:00:00 (WEB) STLMLC STL[facility]C [id number] [facility] 2022-04-04 00:00:00 2022-04-04 00:00:00 (WEB) STLMLC ST[facility]C [id number] [facility] 2022-03-18 00:00:00 2022-03-18 00:00:00 (WEB) STLMLC STL[facility]C [id number] [facility] 2022-03-09 00:00:00 2022-03-09 00:00:00 (TEL) STLMLC ST[facility]C [id number] [facility] 2021-09-16 00:00:00 2021-09-16 00:00:00 Telephone [facility] 1.2.840.114 350.1.13.58 9.2.7.2.686 [id number] [facility] 2021-09-15 13:30:00 2021-09-15 14:21:37 Office Visit Radha [facility] 1.2.840.114 350.1.13.58 9.2.7.2.686 [id number] [facility] 2021-07-01 00:00:00 2021-07-01 00:00:00 (TEL) STLMLC STLMLC [id number] [facility] 2021-06-14 00:00:00 2021-06-14 00:00:00 (TEL) STLMLC STLMLC [id number] [facility] 2021-06-11 00:00:00 2021-06-11 00:00:00 (TEL) STLMLC STLMLC [id number] [facility] 2021-06-08 00:00:00 2021-06-08 00:00:00 (TEL) STLMLC STLMLC [id number] [facility] 2021-06-06 00:00:00 2021-06-06 00:00:00 OFFICE VISIT EST PT LEVEL 3 STLMLC STLMLC [id number] [facility] 2021-04-14 00:00:00 2021-04-14 00:00:00 Outpatient [facility]MLC [facility] [id number] [facility] 2021-04-14 00:00:00 2021-04-14 00:00:00 Outpatient [facility]C ST[facility]C [id number] [facility] 2021-04-09 00:00:00 2021-04-09 00:00:00 Outpatient [facility]C ST[facility]C [id number] [facility] 2021-03-28 00:00:00 2021-03-28 00:00:00 Outpatient STLMLC ST[facility]C [id number] [facility] 2020-03-06 10:20:00 2020-03-06 10:20:00 Outpatient [facility] [id number] [facility] 2020-02-26 00:00:00 2020-02-26 00:00:00 Patient Secure Msg Stubbers, Maame [facility] 1.2.840.114 350.1.13.10 4.2.7.2.686 [id number] [facility] 2020-02-26 00:00:00 2020-02-26 00:00:00 Refill Doctor Unassigned, [place] [facility] 1.2.840.114 350.1.13.10 4.2.7.2.686 [id number] [facility] 2020-02-26 00:00:00 2020-02-26 00:00:00 Patient Secure Msg Stubbers, Maame [facility] 1.2.840.114 350.1.13.10 4.2.7.2.686 [id number] 2020-02-26 00:00:00 2020-02-26 00:00:00 Refill Doctor Unassigned, [place] [facility] 1.2.840.114 350.1.13.10 4.2.7.2.686 [id number] 2020-01-24 00:00:00 2020-01-24 00:00:00 Refill Doctor Unassigned, [place] [facility] 1.2.840.114 350.1.13.10 4.2.7.2.686 [id number] [facility] 2020-01-24 00:00:00 2020-01-24 00:00:00 Refill Doctor Unassigned, [place] [facility] 1.2.840.114 350.1.13.10 4.2.7.2.686 [id number] 2019-12-05 00:00:00 2019-12-05 00:00:00 Telephone Caden Deleon [facility] 1.2.840.114 350.1.13.10 4.2.7.2.686 [id number] [facility] 2019-12-05 00:00:00 2019-12-05 00:00:00 Telephone Caden Deleon [facility] 1.2.840.114 350.1.13.10 4.2.7.2.686 [id number] 2019-12-01 12:52:36 2019-12-01 13:07:36 [facility], [facility] Pcp Assessment Unknown[facility] 1.2.840.114 350.1.13.10 4.2.7.2.686 [id number] [facility] 2019-12-01 12:52:36 2019-12-01 13:07:36 Urgent Care Clinic, Gal Pcp Assessment [facility] 1.2.840.114 350.1.13.10 4.2.7.2.686 [id number] 2019-12-01 13:00:00 2019-12-01 13:00:00 Outpatient R UNKNOWN, ATTENDING [facility] [id number] [facility] 2019-12-01 00:00:00 2019-12-01 00:00:00 Orders Only Doctor Unassigned, [place] [facility] 1.2.840.114 350.1.13.10 4.2.7.2.686 [id number] [facility] 2019-11-28 00:00:00 2019-11-28 00:00:00 Patient Secure g Antoine Bellamy [facility] 1.2.840.114 350.1.13.10 4.2.7.2.686 [id number] [facility] 2019-11-27 00:00:00 2019-11-27 00:00:00 Patient Secure Msg Doctor Unassigned, [place] [facility] 1.2.840.114 350.1.13.10 4.2.7.2.686 [id number] [facility] 2019-11-22 00:00:00 2019-11-22 00:00:00 Patient Secure Msg Doctor Unassigned, [place] [facility] 1.2.840.114 350.1.13.10 4.2.7.2.686 [id number] [facility] 2019-05-19 00:00:00 2019-05-19 00:00:00 Joanna Melinda Lopezshua [facility] 1.2.840.114 350.1.13.10 4.2.7.2.686 [id number] [facility] 2019-05-01 00:00:00 2019-05-01 00:00:00 Joanna Melinda Lopezshua [facility] 1.2.840.114 350.1.13.10 4.2.7.2.686 [id number] [facility] Results Test Description Test Time Test Comments Results Result Co mments Source HEMOGLOBIN [id number] 00:00:00* Test Item Value Reference Range Interpretation Comme nts HEMOGLOBIN A1c (test code = 4548-4) 5.4 % See_Comment [Automated messa ge] The system which generated this result transmitted reference range: 4.2-5.6 %. The reference range was not used to interpret this result as normal/abnormal. LIPID PANEL WITH REFLEX DIRECT [id number] 00:00:00* Test Item Value Reference Range Interpretation Comme nts CALC LDL CHOL (test code = 27207-6) 136 MG/DL See_Comment H [Automated [facility] ge] The system which generated this result transmitted reference range: <100 MG/DL. The reference range was not used to interpret this result as normal/abnormal. CHOLESTEROL (test code = 2093-3) 220 MG/DL See_Comment H [Automated messa ge] The system which generated this result transmitted reference range: <200 MG/DL. The reference range was not used to interpret this result as normal/abnormal. HDL CHOLESTEROL (test code = 2085-9) 52 MG/DL See_Comment [Automated [facility]] The system which generated this result transmitted reference range: >39 MG/DL. The reference range was not used to interpret this result as normal/abnormal. RISK RATIO LDL/HDL (test code = 92531-8) 2.62 RATIO See_Comment [Automated message] The system which generated this result transmitted reference range: <3.22 RATIO. The reference range was not used to interpret this result as normal/abnormal. TRIGLYCERIDES (test code = 2571-8) 182 MG/DL See_Comment H [Automated [facility]] The system which generated this result transmitted reference range: <150 MG/DL. The reference range was not used to interpret this result as normal/abnormal. TSH + FREE T4 [id number] 00:00:00* Test Item Value Reference Range Interpretation Comme nts FREE T4 (THYROXINE) (test code = 3024-7) 1.28 NG/DL See_Comment [Automated message] The system which generated this result transmitted reference range: 0.80-1.90 NG/DL. The reference range was not used to interpret this result as normal/abnormal. TSH, THIRD GENERATION (test code = 35279-6) <0.010 UIU/ML See_Comment L [Automated messa ge] The system which generated this result transmitted reference range: 0.400-4.100 UIU/ML. The reference range was not used to interpret this result as normal/abnormal. COMPREHENSIVE METABOLIC [id number] 00:00:00* Test Item Value Reference Range Interpretation Comme nts ALBUMIN (test code = 1751-7) 4.4 G/DL See_Comment [Automated messa ge] The system which generated this result transmitted reference range: 3.5-5.2 G/DL. The reference range was not used to interpret this result as normal/abnormal. ALKALINE PHOSPHATASE (test code = 6768-6) 104 U/L See_Comment [Automated message] The system which generated this result transmitted reference range: 40-140 U/L. The reference range was not used to interpret this result as normal/abnormal. BILIRUBIN, TOTAL (test code = 1975-2) <0.2 MG/DL See_Comment [Automated message] The system which generated this result transmitted reference range: <=1.2 MG/DL. The reference range was not used to interpret this result as normal/abnormal. BUN (test code = 3094-0) 12 MG/DL See_Comment [Automated messa ge] The system which generated this result transmitted reference range: 8-23 MG/DL. The reference range was not used to interpret this result as normal/abnormal. CALCIUM (test code = 23708-1) 9.9 MG/DL See_Comment [Automated messa ge] The system which generated this result transmitted reference range: 8.5-10.5 MG/DL. The reference range was not used to interpret this result as normal/abnormal. CALC A/G RATIO (test code = 1759-0) 1.7 RATIO See_Comment [Automated messa ge] The system which generated this result transmitted reference range: 1.0-2.6 RATIO. The reference range was not used to interpret this result as normal/abnormal. CALC BUN/CREAT (test code = 3097-3) 19 RATIO See_Comment [Automated messa ge] The system which generated this result transmitted reference range: 6-28 RATIO. The reference range was not used to interpret this result as normal/abnormal. CALC GLOBULIN (test code = 11293-6) 2.6 G/DL See_Comment [Automated messa ge] The system which generated this result transmitted reference range: 1.9-3.7 G/DL. The reference range was not used to interpret this result as normal/abnormal. CARBON DIOXIDE (test code = 1963-8) 28 MEQ/L See_Comment [Automated messa ge] The system which generated this result transmitted reference range: 19-31 MEQ/L. The reference range was not used to interpret this result as normal/abnormal. CHLORIDE (test code = 2075-0) 104 MEQ/L See_Comment [Automated messa ge] The system which generated this result transmitted reference range: 95-107 MEQ/L. The reference range was not used to interpret this result as normal/abnormal. CREATININE (test code = 2160-0) 0.62 MG/DL See_Comment [Automated messa ge] The system which generated this result transmitted reference range: 0.60-1.30 MG/DL. The reference range was not used to interpret this result as normal/abnormal. eGFR (2020 CKD-EPI) (test code = 54755-4) 101 ML/MIN/1.73 See_Comment [Automated message] The system which generated this result transmitted reference range: >60 ML/MIN/1.73. The reference range was not used to interpret this result as normal/abnormal. GLUCOSE (test code = 1558-6) 56 MG/DL See_Comment L [Automated messa ge] The system which generated this result transmitted reference range: 70-99 MG/DL. The reference range was not used to interpret this result as normal/abnormal. POTASSIUM (test code = 2823-3) 4.0 MEQ/L See_Comment [Automated messa ge] The system which generated this result transmitted reference range: 3.5-5.4 MEQ/L. The reference range was not used to interpret this result as normal/abnormal. PROTEIN, TOTAL (test code = 2885-2) 7.0 G/DL See_Comment [Automated messa ge] The system which generated this result transmitted reference range: 6.1-8.3 G/DL. The reference range was not used to interpret this result as normal/abnormal. AST (test code = 1920-8) 12 U/L See_Comment [Automated messa ge] The system which generated this result transmitted reference range: 9-40 U/L. The reference range was not used to interpret this result as normal/abnormal. ALT (test code = 1742-6) 11 U/L See_Comment [Automated messa ge] The system which generated this result transmitted reference range: 5-40 U/L. The reference range was not used to interpret this result as normal/abnormal. SODIUM (test code = 2951-2) 142 MEQ/L See_Comment [Automated messa ge] The system which generated this result transmitted reference range: 133-146 MEQ/L. The reference range was not used to interpret this result as normal/abnormal. Lipid Panel w/ Chol/HDL [id number] 00:00:00* Test Item Value Reference Range Interpretation Comme nts Cholesterol, Total (test code = 2093-3) 297 mg/dL See_Comment H [Automated message] The system which generated this result transmitted reference range: 100-199 mg/dL. The reference range was not used to interpret this result as normal/abnormal. Triglycerides (test code = 2571-8) 208 mg/dL See_Comment H [Automated messa ge] The system which generated this result transmitted reference range: 0-149 mg/dL. The reference range was not used to interpret this result as normal/abnormal. HDL Cholesterol (test code = 2085-9) 62 mg/dL See_Comment [Automated messa ge] The system which generated this result transmitted reference range: >39 mg/dL. The reference range was not used to interpret this result as normal/abnormal. T. Chol/HDL Ratio (test code = 9830-1) 4.8 ratio See_Comment H [Automated [facility]] The system which generated this result transmitted reference range: 0.0-4.4 ratio. The reference range was not used to interpret this result as normal/abnormal. STUART w/Reflex if [id number] 00:00:00* Test Item Value Reference Range Interpretation Comme nts STUART Direct (test code = 8061-4) Negative Negative Comp. Metabolic Panel (14) (CMP)2022-07-24 00:00:00* Test Item Value Reference Range Interpretation Comme nts Glucose (test code = 2345-7) 104 mg/dL See_Comment H [Automated messa ge] The system which generated this result transmitted reference range: 70-99 mg/dL. The reference range was not used to interpret this result as normal/abnormal. BUN (test code = 3094-0) 14 mg/dL See_Comment [Automated messa ge] The system which generated this result transmitted reference range: 8-27 mg/dL. The reference range was not used to interpret this result as normal/abnormal. Creatinine (test code = 2160-0) 0.77 mg/dL See_Comment [Automated messa ge] The system which generated this result transmitted reference range: 0.57-1.00 mg/dL. The reference range was not used to interpret this result as normal/abnormal. BUN/Creatinine Ratio (test code = 3097-3) 18 12-28 Sodium (test code = 2951-2) 138 mmol/L See_Comment [Automated messa ge] The system which generated this result transmitted reference range: 134-144 mmol/L. The reference range was not used to interpret this result as normal/abnormal. Potassium (test code = 2823-3) 5.1 mmol/L See_Comment [Automated messa ge] The system which generated this result transmitted reference range: 3.5-5.2 mmol/L. The reference range was not used to interpret this result as normal/abnormal. Chloride (test code = 2075-0) 101 mmol/L See_Comment [Automated messa ge] The system which generated this result transmitted reference range: 96-106 mmol/L. The reference range was not used to interpret this result as normal/abnormal. Carbon Dioxide, Total (test code = 2028-9) 24 mmol/L See_Comment [Automated message] The system which generated this result transmitted reference range: 20-29 mmol/L. The reference range was not used to interpret this result as normal/abnormal. Calcium (test code = 23078-0) 9.8 mg/dL See_Comment [Automated messa ge] The system which generated this result transmitted reference range: 8.7-10.3 mg/dL. The reference range was not used to interpret this result as normal/abnormal. Protein, Total (test code = 2885-2) 7.6 g/dL See_Comment [Automated messa ge] The system which generated this result transmitted reference range: 6.0-8.5 g/dL. The reference range was not used to interpret this result as normal/abnormal. Albumin (test code = 1751-7) 4.6 g/dL See_Comment [Automated messa ge] The system which generated this result transmitted reference range: 3.8-4.8 g/dL. The reference range was not used to interpret this result as normal/abnormal. Globulin, Total (test code = 79564-7) 3.0 g/dL See_Comment [Automated messa ge] The system which generated this result transmitted reference range: 1.5-4.5 g/dL. The reference range was not used to interpret this result as normal/abnormal. A/G Ratio (test code = 1759-0) 1.5 1.2-2.2 Bilirubin, Total (test code = 1975-2) 0.3 mg/dL See_Comment [Automated messa ge] The system which generated this result transmitted reference range: 0.0-1.2 mg/dL. The reference range was not used to interpret this result as normal/abnormal. Alkaline Phosphatase (test code = 6768-6) 127 IU/L See_Comment H [Automated message] The system which generated this result transmitted reference range: 44-121 IU/L. The reference range was not used to interpret this result as normal/abnormal. AST (SGOT) (test code = 1920-8) 18 IU/L See_Comment [Automated messa ge] The system which generated this result transmitted reference range: 0-40 IU/L. The reference range was not used to interpret this result as normal/abnormal. ALT (SGPT) (test code = 1742-6) 19 IU/L See_Comment [Automated messa ge] The system which generated this result transmitted reference range: 0-32 IU/L. The reference range was not used to interpret this result as normal/abnormal. CBC With Differential/[id number] 00:00:00* Test Item Value Reference Range Interpretation Comme nts WBC (test code = 6690-2) 8.9 x10E3/uL See_Comment [Automated messa ge] The system which generated this result transmitted reference range: 3.4-10.8 x10E3/uL. The reference range was not used to interpret this result as normal/abnormal. RBC (test code = 789-8) 4.81 x10E6/uL See_Comment [Automated messa ge] The system which generated this result transmitted reference range: 3.77-5.28 x10E6/uL. The reference range was not used to interpret this result as normal/abnormal. Hemoglobin (test code = 718-7) 14.2 g/dL See_Comment [Automated messa ge] The system which generated this result transmitted reference range: 11.1-15.9 g/dL. The reference range was not used to interpret this result as normal/abnormal. Hematocrit (test code = 4544-3) 41.8 % See_Comment [Automated messa ge] The system which generated this result transmitted reference range: 34.0-46.6 %. The reference range was not used to interpret this result as normal/abnormal. MCV (test code = 787-2) 87 fL See_Comment [Automated messa ge] The system which generated this result transmitted reference range: 79-97 fL. The reference range was not used to interpret this result as normal/abnormal. MCH (test code = 785-6) 29.5 pg See_Comment [Automated messa ge] The system which generated this result transmitted reference range: 26.6-33.0 pg. The reference range was not used to interpret this result as normal/abnormal. MCHC (test code = 786-4) 34.0 g/dL See_Comment [Automated messa ge] The system which generated this result transmitted reference range: 31.5-35.7 g/dL. The reference range was not used to interpret this result as normal/abnormal. RDW (test code = 788-0) 12.8 % See_Comment [Automated messa ge] The system which generated this result transmitted reference range: 11.7-15.4 %. The reference range was not used to interpret this result as normal/abnormal. Platelets (test code = 777-3) 421 x10E3/uL See_Comment [Automated messa ge] The system which generated this result transmitted reference range: 150-450 x10E3/uL. The reference range was not used to interpret this result as normal/abnormal. Neutrophils (test code = 770-8) 44 % Not Estab. % Lymphs (test code = 736-9) 45 % Not Estab. % Monocytes (test code = 5905-5) 8 % Not Estab. % Eos (test code = 713-8) 2 % Not Estab. % Basos (test code = 706-2) 1 % Not Estab. % Immature Cells (test code = UNLOINC) Neutrophils (Absolute) (test code = 751-8) 3.9 x10E3/uL See_Comment [Automated messa ge] The system which generated this result transmitted reference range: 1.4-7.0 x10E3/uL. The reference range was not used to interpret this result as normal/abnormal. Lymphs (Absolute) (test code = 731-0) 4.0 x10E3/uL See_Comment H [Automated m essage] The system which generated this result transmitted reference range: 0.7-3.1 x10E3/uL. The reference range was not used to interpret this result as normal/abnormal. Monocytes(Absolute) (test code = 742-7) 0.7 x10E3/uL See_Comment [Automated m essage] The system which generated this result transmitted reference range: 0.1-0.9 x10E3/uL. The reference range was not used to interpret this result as normal/abnormal. Eos (Absolute) (test code = 711-2) 0.2 x10E3/uL See_Comment [Automated messa ge] The system which generated this result transmitted reference range: 0.0-0.4 x10E3/uL. The reference range was not used to interpret this result as normal/abnormal. Baso (Absolute) (test code = 704-7) 0.1 x10E3/uL See_Comment [Automated messa ge] The system which generated this result transmitted reference range: 0.0-0.2 x10E3/uL. The reference range was not used to interpret this result as normal/abnormal. Immature Granulocytes (test code = 59129-9) 0 % Not Estab. % Immature Grans (Abs) (test code = 01624-8) 0.0 x10E3/uL See_Comment [Automated message] The system which generated this result transmitted reference range: 0.0-0.1 x10E3/uL. The reference range was not used to interpret this result as normal/abnormal. NRBC (test code = 97354-4) Hematology Comments: (test code = 53661-5) Sedimentation Zowh-[id number] 00:00:00* Test Item Value Reference Range Interpretation Comme nts Sedimentation Rate-Westergren (test code = 4537-7) 13 mm/hr See_Comment [Automated messa ge] The system which generated this result transmitted reference range: 0-40 mm/hr. The reference range was not used to interpret this result as normal/abnormal. Rheumatoid Arthritis Aqkwad1916-87-53 00:00:00* Test Item Value Reference Range Interpretation Comme nts Rheumatoid Factor (RF) (test code = 55418-6) 14.4 IU/mL See_Comment H [Automated messa ge] The system which generated this result transmitted reference range: <14.0 IU/mL. The reference range was not used to interpret this result as normal/abnormal. C-Reactive Protein, Quant (CRP)2022-07-24 00:00:00* Test Item Value Reference Range Interpretation Comme nts C-Reactive Protein, Quant (test code = 1988-5) 9 mg/L See_Comment [Automated messa ge] The system which generated this result transmitted reference range: 0-10 mg/L. The reference range was not used to interpret this result as normal/abnormal. BRCA1 and BRCA2 Comprehensive Thcsasyh8561-34-29 00:00:00SPECIMEN TYPEPREAUTHORIZATIONCLINICAL INDICATIONRESULTSINTERPRETATIONADDITIONAL CLINICAL INFORM.RECOMMENDATIONSCOMMENTSMETHODS AND LIMITATIONSREFERENCESRELEASED BYT4, [id number] 06:00:00* Test Item Value Reference Range Interpretation Comme nts T4, FREE (test code = 3024-7) 1.1 ng/dL 0.8-1.8 RAC (test code = RAC) Performing Organization Information: ? ?Site ID: RGA ? ?Name: [facility] ? ?Address: [address] [place] [address] ? ?Director: REENA GIBBS MD [facility]28[facility]-93 06:00:00* Test Item Value Reference Range Interpretation Comme nts TSH (test code = 3016-3) See_Comment L [Automated message] The system which generated this result transmitted reference range: 0.40 - 4.50 mIU/L. The reference range was not used to interpret this result as normal/abnormal. RAC (test code = RAC) Performing Organization Information: ? ?Site ID: RGA ? ?Name: [facility] ? ?Address: [address] [place] [address] ? ?Director: REENA GIBBS MD Lab Interpretation (test code = 39073-2) Abnormal [place] [id number] 06:00:00* Test Item Value Reference Range Interpretation Comme nts T3, TOTAL (test code = 3053-6) 87 ng/dL 76-181 RAC (test code = RAC) Performing Organization Information: ? ?Site ID: RGA ? ?Name: [facility] ? ?Address: [address] [place] [id number] ? ?Director: REENA GIBBS MD [facility]
--- NOTE | 2024-01-07 12:37 | RAD REPORT ---
EXAM DESCRIPTION: RAD - Knee Left 3 View - 01/07/2024 12:31 pm CLINICAL HISTORY: SWELLING COMPARISON: No comparisons FINDINGS: Fracture of the patella is present with minimal displacement. Moderate suprapatellar joint effusion. No additional fracture. IMPRESSION: Patella fracture.
--- NOTE | 2024-01-07 13:20 | EDPHYS ---
Physician Documentation [facility] Name: Brynn Garcia Age: 63 yrs Sex: Female : 1960 Arrival Date: 01/07/2024 Time: 11:17 Bed 10 Private MD: ED Physician Nahum Lomas HPI: 01/06 13:14 Details of fall: The patient fell from a height, Was walking and fell on the left knee bo1 and hit knee on concrete and the right chin - [employer]. Onset: The symptoms/episode began/occurred acutely, today. Associated injuries: The patient sustained Left knee and right chin. Historical: - Allergies: 11:25 No Known Allergies; aa5 - Home Meds: 12:40 Cymbalta 60 mg oral capsule,delayed release (e.c.) 2 caps daily [Active]; Synthroid 137 tl4 mcg oral tablet 1 tab daily [Active]; lisinopril-hydrochlorothiazide 10-12.5 mg oral tablet 1 tab daily [Active]; topiramate 50 mg oral tablet 1 tab 2 times per day [Active]; naltrexone 4.5 mg oral capsule 1 cap daily [Active]; - PMHx: 11:25 Hypertension; Hypothyroidism; Rheumatoid Arthritis; aa5 - PSHx: 12:40 None; tl4 - Immunization history:: Adult Immunizations unknown. - Infectious Disease History:: Denies. - Social history:: Smoking status: Patient/guardian denies using tobacco. ROS: 13:15 Neuro: Negative for altered mental status, loss of consciousness, bo1 Exam: 13:15 Head/face: Noted is contusion, ecchymosis, that is mild, of the right lower chin/jaw bo1 area, 13:15 ENT: Exam is negative for No dental abnl found. 13:16 Musculoskeletal/extremity: Small "cut" to anterior knee over the patella. Swollen bo1 knee. ROM is normal. Pt is able to bear weight.. 13:16 Neuro: Exam negative for acute changes, focal neuro deficits, Vital Signs: 11:25 BP 129 / 71; Pulse 87; Resp 18 S; Temp 97.1(TE); Pulse Ox 100% on R/A; Weight 89.81 kg aa5 (R); Height 5 ft. 10 in. (R); 13:40 BP 127 / 74; Pulse 88; Resp 16; Temp 98.1(O); Pulse Ox 99% on R/A; tl4 11:25 Body Mass Index 28.41 (89.81 kg, 177.8 cm) aa5 MDM: 12:02 Patient medically screened. bo1 13:17 Differential diagnosis: contusion, fracture, Cutaneous injury. bo1 13:20 Patient medically screened. bo1 01/06 12:10 Order name: Knee Left 3 View XRAY; Complete Time: 13:03 bo1 01/06 13:13 Order name: Wound Care; Complete Time: 13:27 bo1 01/06 13:14 Order name: Dominic wrap-joint; Complete Time: 13:28 bo1 01/06 13:14 Order name: Knee Immobilizer; Complete Time: 13: bo1 01/06 13:14 Order name: Crutches; Complete Time: : bo1 Administered Medications: No medications were administered Disposition Summary: 01/07/24 13:20 Discharge Ordered Notes: Location: Home bo1 Problem: new bo1 Symptoms: are unchanged bo1 Condition: Stable bo1 Diagnosis - Fracture of patella bo1 Followup: bo1 - With: Arden Daigle MD - When: Upon discharge from the Emergency Department - Reason: Continuance of care Discharge Instructions: - Discharge Summary Sheet bo1 - Patellar Fracture, Adult bo1 - Crutch Use, Adult, Ceko-jv-Hcnd bo1 Forms: - Medication Reconciliation Form bo1 - Antibiotic Education bo1 - Prescription Opioid Use bo1 - Patient Portal Instructions bo1 - Leadership Thank You Letter bo1 Prescriptions: - Cephalexin 500 mg Oral Capsule - take 1 capsule ORAL route every 12 hours for 10 days; 20 capsule; Refills: 0, bo1 Product Selection Permitted Signatures: Dispatcher [employer] America Beck RN RN aa5 Hu Hernandez RN RN tl4 Nahum Lomas MD MD bo1
--- NOTE | 2024-01-07 13:20 | ER ---
Nurse's Notes [facility] Name: Brynn Garcia Age: 63 yrs Sex: Female : 1960 Arrival Date: 01/07/2024 Time: 11:17 Bed 10 Private MD: Diagnosis: Fracture of patella Presentation: 01/06 11:25 Chief complaint: Patient states: "I fell last night and hurt my left knee". Pt c/o pain aa5 to left knee and abrasion to left knee. 11:25 Coronavirus screen: At this time, the client does not indicate any symptoms associated aa5 with coronavirus-19. Ebola Screen: Patient denies travel to an Ebola-affected area in the 21 days before illness onset. Initial Sepsis Screen: Does the patient meet any 2 criteria? No. Patient's initial sepsis screen is negative. Does the patient have a suspected source of infection? No. Patient's initial sepsis screen is negative. Risk Assessment: Do you want to hurt yourself or someone else? Patient reports no desire to harm self or others. Onset of symptoms was December 2023. 11:25 Acuity: POLO 4 aa5 11:25 Method Of Arrival: Wheelchair aa5 Historical: - Allergies: 11:25 No Known Allergies; aa5 - Home Meds: 12:40 Cymbalta 60 mg oral capsule,delayed release (e.c.) 2 caps daily [Active]; Synthroid 137 tl4 mcg oral tablet 1 tab daily [Active]; lisinopril-hydrochlorothiazide 10-12.5 mg oral tablet 1 tab daily [Active]; topiramate 50 mg oral tablet 1 tab 2 times per day [Active]; naltrexone 4.5 mg oral capsule 1 cap daily [Active]; - PMHx: 11:25 Hypertension; Hypothyroidism; Rheumatoid Arthritis; aa5 - PSHx: 12:40 None; tl4 - Immunization history:: Adult Immunizations unknown. - Infectious Disease History:: Denies. - Social history:: Smoking status: Patient/guardian denies using tobacco. Screenin:35 [facility] ED Fall Risk Assessment (Adult) History of falling in the last 3 months, tl4 including since admission Yes- single mechanical fall (1 pt) Confusion or Disorientation No (0 pts) Intoxicated or Sedated No (0 pts) Impaired Gait Yes (1 pt) Mobility Assist Device Used No (0 pt) Altered Elimination No (0 pt) Score/Fall Risk Level 0 - 2 = Low Risk Oriented to surroundings, Maintained a safe environment, Educated pt \\T\\ family on fall prevention, incl call for assistance when getting out of bed, Assessed \\T\\ reinforced patient's understanding of fall precautions, Hourly rounding (assess needs \\T\\ fall precautionary measures) done, Used ambulatory aids as needed (educated on \\T\\ assisted with), Used gait belt as appropriate. Abuse screen: Denies threats or abuse. Denies injuries from another. Nutritional screening: No deficits noted. Tuberculosis screening: No symptoms or risk factors identified. Assessment: 12:33 General: Appears in no apparent distress. Behavior is calm, cooperative. Pain: tl4 Complains of pain in left leg Pain began suddenly, 1 day ago. Alleviated by rest, Aggravated by increased activity, weight bearing. Neuro: Level of Consciousness is awake, alert, obeys commands, Oriented to person, place, time, situation, Moves all extremities. Full function Gait is steady, Speech is normal. Cardiovascular: Capillary refill < 3 seconds Patient's skin is warm and dry. Respiratory: Airway is patent Respiratory effort is even, unlabored, Respiratory pattern is regular, symmetrical, Breath sounds are clear bilaterally. GI: No signs and/or symptoms were reported involving the gastrointestinal system. : No signs and/or symptoms were reported regarding the genitourinary system. EENT: No signs and/or symptoms were reported regarding the EENT system. Derm: No signs and/or symptoms reported regarding the dermatologic system. Musculoskeletal: Capillary refill < 3 seconds, Range of motion: limited in left knee Swelling present in left knee Reports pain in left leg since 12/06/2023. 13:25 Reassessment: No changes from previously documented assessment. Patient and/or family tl4 updated on plan of care and expected duration. Pain level reassessed. Patient is alert, oriented x 3, equal unlabored respirations, skin warm/dry/pink. Vital Signs: 11:25 BP 129 / 71; Pulse 87; Resp 18 S; Temp 97.1(TE); Pulse Ox 100% on R/A; Weight 89.81 kg aa5 (R); Height 5 ft. 10 in. (R); 13:40 BP 127 / 74; Pulse 88; Resp 16; Temp 98.1(O); Pulse Ox 99% on R/A; tl4 11:25 Body Mass Index 28.41 (89.81 kg, 177.8 cm) aa5 ED Course: 11:19 Patient arrived in ED. im 11:25 Arm band placed on. aa5 11:27 Triage completed. aa5 12:02 Nahum Lomas MD is Attending Physician. bo1 12:26 Hu Hernandez RN is Primary Nurse. tl4 12:33 Knee Left 3 View XRAY In Process Unspecified. EDMS 12:39 Patient has correct armband on for positive identification. Bed in low position. Call tl4 light in reach. Side rails up X 1. Provided Education on: ED process. Client placed on continuous cardiac and pulse oximetry monitoring. NIBP monitoring applied. Door closed. Noise minimized. Lights dimmed. Moved to private room. Warm blanket given. 12:39 No provider procedures requiring assistance completed. Patient did not have IV access tl4 during this emergency room visit. 13:19 Arden Daigle MD is Referral Physician. bo1 13:25 Crutch training done. Dominic wrap to left knee Knee immobilizer applied on left knee. tl4 Wound care: to laceration was cleaned with soap and water, dressed with Neosporin, band aid. Administered Medications: No medications were administered Medication: 12:35 VIS not applicable for this client. tl4 Outcome: 13:20 Discharge ordered by . bo1 13:45 Discharged to home ambulatory, with crutches, tl4 13:45 Condition: good 13:45 Discharge instructions given to patient, Instructed on discharge instructions, follow up and referral plans. medication usage, crutch walking, wound care, Demonstrated understanding of instructions, follow-up care, medications, wound care, crutch walking, splint care, 14:03 Patient left the ED. tl4 Signatures: Dispatcher [employer] America Goetz RN RN aa5 Madeleine Montero Hu Hernandez RN RN tl4 Nahum Lomas MD MD bo1
[2024-01-07 14:39] VITALS: BP 127/74; TEMP 98.1; O2SAT 99
== END 2024-01-07 14:03 | disposition home or self-care (01) ==
LOC: ER 11:17
DX: S82.002A Unspecified fracture of left patella, initial encounter for closed fracture (principal)